=== PATIENT | female | born 1935 | race Caucasian/White ===

== ENCOUNTER → 2017-06-05 | Outpatient (CLI) | payer MEDICARE, MEDICAID ==
[~2017-06-05] MED LIST: AC325T; AMLO5TAB2; AMT10T; ASP81TEC; CALC500T30; CLC500CT; CLN.2T; CLNZ.5T; ERGO400C; HCT25T; KCL10CCR; METO100T5; METO50TA7; MULT-608; MULT1TAB63; NF-LOVAZAC; NF-METANX; PNT40TEC; RLX60T; ROPI1TAB; RPN.25T; SIMV20TA3; TELM40T; VALS1TAB15; [UNRECOGNIZED DRUG - CODE]
--- NOTE | 2017-06-05 13:52 | Diagnostic Imaging Report ---
Digital mammogram bilateral screening. This study was compared with the prior exam of 05/21/2016; 05/14/2015; and 05/01/2014. At this time there are no current complaints. The current study was also evaluated with a Computer Aided Detection (CAD) system. FINDINGS: The fibroglandular tissue in both breasts is heterogeneously dense. This does limit the sensitivity of this exam. Overall, there does not appear to have been any significant change when compared to the prior study. No primary or secondary sign of malignancy is noted. IMPRESSION: There is no radiographic evidence for malignancy. ACR BI-RADS Category 1: Negative. Result letter will be mailed to the patient. Note: At least 10% of breast cancer is not imaged by mammography. Dictated by: Dictated on workstation # [id number]
== END ==
LOC: RAD 09:08
PROVIDERS: ATTEND Internal Medicine
DX: Z12.31 Encounter for screening mammogram for malignant neoplasm of breast (principal)
CPT/HCPCS: 77067

== ENCOUNTER → 2019-06-28 | Outpatient (CLI) | payer MEDICARE, MEDICAID | END | disposition home or self-care (01) | LOC: PREOP 05:31 | PROVIDERS: ATTEND Surgery | DX: Z01.818 Encounter for other preprocedural examination (principal) ==

== ENCOUNTER 2019-07-05 09:09 | Day surgery (SDC) | payer MEDICARE, MEDICAID ==
[~2019-07-05] VITALS: Ht 162 cm; Wt 77.0 kg
[2019-07-05] VITALS (8 sets, daily range): BP systolic 160–188; BP diastolic 63–99
[2019-07-05] MEDS ORDERED: LACTATED RINGERS 1,000 ML IV ONE (09:23)
[2019-07-05] MEDS ORDERED: LACTATED RINGERS 1,000 ML IV STA (09:23)
--- NOTE | 2019-07-05 09:45 | Progress Note-Pre Operative ---
Pre-Operative Progress Note H&P Reviewed The H&P was reviewed, patient examined and no changes noted. Date Seen by Provider: Jul 05, 2019 Time Seen by Provider: 09:42 Date H&P Reviewed: Jul 05, 2019 Time H&P Reviewed: 09:45 Pre-Operative Diagnosis: change in bowel habits, blood in stool MERCEDES BISWAS DO Jul 05, 2019 09:45
[2019-07-05] MEDS ORDERED: PROPOFOL INJECTION 0 ML IV ONE (10:09)
[2019-07-05] MEDS ORDERED: PROPOFOL INJECTION 50 ML IV ONE (10:48)
--- NOTE | 2019-07-05 10:49 | Anesthesia-General Post-Op ---
MAC Patient Condition Mental Status/LOC: Same as Preop Cardiovascular: Satisfactory Nausea/Vomiting: Absent Respiratory: Satisfactory Pain: Controlled Complications: Absent Post Op Complications Complications None Follow Up Care/Instructions Patient Instructions None needed. Anesthesiology Discharge Order Discharge Order Patient is doing well, no complaints, stable vital signs, no apparent adverse anesthesia problems. No complications reported per nursing. MARTINA MARCUS CRNA Jul 05, 2019 10:49
--- NOTE | 2019-07-05 11:01 | Progress Note-Post Operative ---
Post-Operative Progess Note Surgeon (s)/Shot Lighter (s) Surgeon MERCEDES BISWAS DO Shot Lighter: na Pre-Operative Diagnosis change in bowel habits, blood in stool Post-Operative Diagnosis Diverticulosis, Anorectal mucosal change Procedure & Operative Findings Date of Procedure 07/05/19 Procedure Performed/Findings colonoscopy with cold anorectal biopsy, Anesthesia Type Per BRIGADIER Estimated Blood Loss Estimated blood loss (mL): Minimal Specimens/Packing Specimens Removed Anorectal mucosa MERCEDES BISWAS DO Jul 05, 2019 11:01
--- NOTE | 2019-07-05 11:02 | Discharge Inst-Simple/Standard ---
Discharge Inst-Standard Reconcile Patient Problems Problems Reviewed?: No Patient Instructions/Follow Up Plan of Care/Instructions/FU: 2 weeks tony Activity as Tolerated: Yes Discharge Diet: Regular Diet MERCEDES BISWAS DO Jul 05, 2019 11:02
--- NOTE | 2019-07-05 11:35 | NUR ---
PT VERBALIZED IT IS HARD TO BREATHE, O2 SAT 98%, FELICE [employer] NOTIFIED- ORDERED A BREATHING TX, RT AT BEDSIDE FOR TREATMENT. POST TREATMENT PT VERBALIZED FEELING EASIER TO BREATHE.
[2019-07-05] MEDS ORDERED: RT-ALBUTEROL SULF 2.5 MG/3 ML PRE-MIX VIAL ONE (11:38)
[2019-07-05] MEDS ORDERED: RT-ALBUTEROL SULF 2.5 MG/3 ML PRE-MIX VIAL INH ONE (11:45)
--- NOTE | 2019-07-05 16:42 | OPERATIVE REPORT ---
DATE OF SERVICE: 07/05/2019 PREOPERATIVE DIAGNOSIS: Change in bowel habits, blood in stool. POSTOPERATIVE DIAGNOSES: Diverticulosis, anorectal mucosal change. PROCEDURE: Colonoscopy with cold anorectal biopsy. SURGEON: Mercedes Galdamez DO ANESTHESIA: Per [employer]ER. ESTIMATED BLOOD LOSS: Minimal. COMPLICATIONS: None. INDICATIONS: The patient is an 83-year-old female with change in bowel habits and blood in stool. She understands risks and benefits of the procedure and wished to proceed with the procedure. Consent was signed in the chart. DESCRIPTION OF PROCEDURE: The patient was taken to the endoscopy suite, placed in left lateral recumbent position. Timeout was performed. Digital rectal exam was performed on the right lateral aspect. Mucosal erythematous changes present. No palpable polyps, masses or ulcerations. Scope was inserted in the rectum and advanced all the way to the cecum with minimal difficulty. Prep was adequate. Scope was slowly retracted back. No polyps, masses or ulcerations of the cecum, ascending, transverse, or descending colon. Diverticulosis present throughout colon minimally. Once in the rectum, scope was retroflexed noting erythematous mucosal change, as well biopsy of this anorectal mucosal change was obtained. Scope was then returned to its normal position, slowly withdrawn until completely removed. A cold biopsy of the mucosal change on the outside was performed as well. The patient tolerated procedure well without any complications. She was taken to recovery room in stable condition. RECOMMENDATION: The patient will follow up in two weeks to discuss pathology results. Job ID: [id number] DocumentID: [id number] Dictated Date: 07/05/2019 11:01:28 Half Section Ironer Date: 07/05/2019 16:42:02 Dictated By: MERCEDES GALDAMEZ DO
== END 2019-07-05 12:20 | disposition home or self-care (01) ==
LOC: ENDO 09:09
PROVIDERS: ATTEND Surgery
DX: K62.1 Rectal polyp (principal); K92.1 Melena; K57.30 Diverticulosis of large intestine without perforation or abscess without bleeding; I10 Essential (primary) hypertension; I25.10 Atherosclerotic heart disease of native coronary artery without angina pectoris; J45.909 Unspecified asthma, uncomplicated; I48.91 Unspecified atrial fibrillation; Z88.8 Allergy status to other drugs, medicaments and biological substances; Z79.02 Long term (current) use of antithrombotics/antiplatelets; Z79.899 Other long term (current) drug therapy; Z88.1 Allergy status to other antibiotic agents; Z87.891 Personal history of nicotine dependence; Z82.49 Family history of ischemic heart disease and other diseases of the circulatory system; Z86.73 Personal history of transient ischemic attack (TIA), and cerebral infarction without residual deficits; Z95.5 Presence of coronary angioplasty implant and graft
CPT/HCPCS: 94640

== ENCOUNTER 2019-12-22 19:44 | Emergency (ER) | payer MEDICARE, MEDICAID ==
[~2019-12-22] VITALS: Ht 162 cm; Wt 82.0 kg
--- NOTE | 2019-12-22 19:54 | ED Fall/Injury ---
General Chief Complaint: Trauma-Non Activation Stated Complaint: FALL/LAC Source: patient Exam Limitations: no limitations History of Present Illness Date Seen by Provider: Dec 22, 2019 Time Seen by Provider: 19:52 Initial Comments To ER from assisted living with reports of a full and laceration to the scalp. No complaints of pain Occurred: just prior to arrival Severity: mild Context: slipped Loss of Consciousness: no loss of consciousness Associated Symptoms (Fall): No Confusion Allergies and Home Medications Allergies Coded Allergies: Alendronic Acid (Verified Allergy, Unknown, 12/01/06) Patient Home Medication List Home Medication List Reviewed: Yes Review of Systems Review of Systems Constitutional: see HPI Eyes: No Symptoms Reported Ears, Nose, Mouth, Throat: no symptoms reported Respiratory: no symptoms reported Cardiovascular: no symptoms reported Musculoskeletal: no symptoms reported Skin: no symptoms reported Psychiatric/Neurological: No Symptoms Reported Past Szfydiw-Zjdrul-Ahouig Hx Patient Social History Recent Hopitalizations: Yes Past Medical History Surgeries: Yes (HYSTERECTOMY, ANKLE FX TIMES 2, HEMMORIODECTOMY, ) Respiratory: No Cardiac: Yes Neurological: No Reproductive Disorders: Yes Gastrointestinal: Yes Musculoskeletal: Yes Endocrine: Yes Psychosocial: Yes (HALLUCATION, ) Blood Disorders: No Physical Exam Vital Signs Vital Signs - First Documented 12/22/19 19:45 Temp 36.9 Pulse 112 Resp 20 B/P (MAP) 134/99 (111) Pulse Ox 92 O2 Delivery Nasal Cannula O2 Flow Rate 3.00 Capillary Refill : Height, Weight, BMI Height: '" Weight: lbs. oz. kg; 29.34 BMI Method: General Appearance: WD/WN, no apparent distress HEENT: PERRL/EOMI, normal ENT inspection, other (3 cm scalp down to the subcutaneous tissue right parietal scalp.) Neck: No tender lateral, No tender midline; other (full range of motion of the neck) Respiratory: no respiratory distress, no accessory muscle use Gastrointestinal: normal bowel sounds, non tender, soft Extremities: normal range of motion, non-tender Neurologic/Psychiatric: alert, normal mood/affect, oriented x 3 Skin: normal color, warm/dry Paxton Coma Score Best Eye Response: (4) Open Spontaneously Best Verbal Response: (5) Oriented Best Motor Response: (6) Obeys Commands [place] Total: 15 Procedures/Interventions Wound Location: Scalp Wound Length (cm): 3 Wound's Depth, Shape: linear Anesthesia: Lidocaine w/ Epi Volume Anesthetic (ccs): 3 Progress 4 ras right parietal scalp Progress/Results/Core Measures Results/Orders My Orders Orders - ADDIS MARTE APRN Ct Head/Cervical Spine Wo (12/22/19 19:48) Dipht,Pertuss(Acell),Tet Adult (Boostrix (12/22/19 20:00) Lidocaine/Epi 2% 1:100,000 (Xylocaine/Ep (12/22/19 20:00) Medications Given in ED Current Medications Medications Dose Ordered Sig/Kathryn Route Start Time Stop Time Status Last Admin Dose Admin Diphtheria/ Tetanus/Acell Pertussis 0.5 ml ONCE ONCE IM 12/22/19 20:00 12/22/19 20:01 DC 12/22/19 20:14 0.5 ML Lidocaine/ Epinephrine 20 ml ONCE ONCE INJ 12/22/19 20:00 12/22/19 20:01 DC 12/22/19 20:13 20 ML Vital Signs/I&O 12/22/19 19:45 Temp 36.9 Pulse 112 Resp 20 B/P (MAP) 134/99 (111) Pulse Ox 92 O2 Delivery Nasal Cannula O2 Flow Rate 3.00 Departure Impression Primary Impression: Fall at snf Qualified Codes: W19.XXXA - Unspecified fall, initial encounter; Y92.129 - Unspecified place in snf as the place of occurrence of the external cause Additional Impression: Scalp laceration Qualified Codes: S01.01XA - Laceration without foreign body of scalp, initial encounter Disposition: HOME, SELF-CARE Condition: Stable Departure-Patient Inst. Decision time for Depature: 19:54 Referrals: KIMO HAYNES MD (PCP/Family) Primary Care Physician Patient Instructions: Laceration Repair With Ras (DC) Add. Discharge Instructions: 1. Have the ras removed in about 5-7 days. Return to ER for any altered mental status or other concerns. All discharge instructions reviewed with patient and/or family. Voiced understanding. ADDIS MARTE APRN Dec 22, 2019 19:54
--- NOTE | 2019-12-22 19:57 | NUR ---
SEE LIST FOR CURRENT MEDS
[2019-12-22] MEDS ORDERED: LIDOCAINE/EPI 2% 1:100,00 (XYLOCAINE) 20 ML VIAL INJ ONE (20:00)
[2019-12-22] MEDS ORDERED: TETANUS,DIPTH,PERTUSS P/F (BOOSTRIX) 0.5 ML VIAL IM ONE (20:00)
--- OUTSIDE RECORDS SUMMARY | 2019-12-22 20:31 | XMS REPORT ---
Author Author [email or web address] Organization [employer] Address [address] [address] Care Team Providers Care Gas Technician Name Role Phone KIMO HAYNES Unavailable Unavailable CARRI RITTER Unavailable NINA MEDINA Unavailable Unavailable KIMO HAYNES Unavailable KIMO HAYNES Unavailable KIMO HAYNES Unavailable KIMO HAYNES Unavailable KIMO HAYNES Unavailable SHAQ HERNÁNDEZ Unavailable KIMO HAYNES Unavailable KIMO HAYNES Unavailable JENIFFER, JACQUELINE Unavailable JENIFFER, JACQUELINE Unavailable JENIFFER, JACQUELINE Unavailable KIMO HAYNES Unavailable JENIFFER, JACQUELINE Unavailable JENIFFER, JACQUELINE Unavailable JENIFFER, JACQUELINE Unavailable JENIFFER, JACQUELINE Unavailable JENIFFER, JACQUELINE Unavailable JENIFFER, JACQUELINE Unavailable RICARDO RODRIGUEZ, LYNSEY Rincon Unavailable Unavailable Migration, Doctor Unavailable Unavailable Migration, Doctor Unavailable Unavailable Migration, Doctor Unavailable Unavailable Migration, Doctor Unavailable Unavailable Migration, Doctor Unavailable Unavailable Migration, Doctor Unavailable Unavailable KIMO HAYNES Unavailable KIMO HAYNES Unavailable KIMO HAYNES Unavailable KIMO HAYNES Unavailable TORRES, LAKSHMI Unavailable TORRES, LAKSHMI Unavailable TORRES, LAKSHMI Unavailable TORRES, LAKSHMI Unavailable KIMO HAYNES Unavailable TORRES, LAKSHMI Unavailable KIMO HAYNES Unavailable TORRES, LAKSHMI Unavailable TORRES, LAKSHMI Unavailable KIMO HAYNES Unavailable TORRES, LAKSHMI Unavailable HUKIMO YOUSIF Unavailable MERCEDES BISWAS DO Unavailable Unavailable KIMO HAYNES PCP TORRES, LAKSHMI Unavailable KIMO HAYNES MD Unavailable Unavailable TORRES, LAKSHMI Unavailable TORRES, LAKSHMI Unavailable KIMO HAYNES Unavailable TORRES, LAKSHMI Unavailable TORRES, LAKSHMI Unavailable TORRES, LAKSHMI Unavailable TORRES, LAKSHMI Unavailable TORRES, LAKSHMI Unavailable TORRES, LAKSHMI Unavailable TORRES, LAKSHMI Unavailable TORRES, LAKSHMI Unavailable TORRES, LAKSHMI Unavailable TORRES, LAKSHMI Unavailable TORRES, LAKSHMI Unavailable TORRES, LAKSHMI Unavailable TORRES, LAKSHMI Unavailable TORRES, LAKSHMI Unavailable TORRES, LAKSHMI Unavailable Allergies The data below is from unstructured sources Allergen Type Severity Reaction Last Updated Verified Status Alendronic Acid Allergy Unknown December 01, 2006 Yes Active No Information Medications Current Medications Medication Ingredient Drug Dose Dates Status Sig Sig Care Class(es) (Normalized) (Original) Provid er albuterol Albuterol beta2-Adren 2.4899 Active take 3 mL by Albut radha no 0.83 mg/ml Translation ergic 045325 inhalation Sulfate (2.5 name inhalant s: [ Agonist [id number] every four MG/3ML) (no solution (1 Albuterol mg/mL hours as 0.083% phone) source.) Sulfate needed Inhalation (2.5 every 4 hrs MG/3ML) 3 ml as 0.083%] needed 4h Active no Ascorbic Vitamin C Active no Ocuvite no information Acid / Beta information Adult 50+ - name (1 source.) Carotene / Orally one (no cuprous time daily 1 phone) oxide / capsule Lutein / Active sodium selenate / Vitamin E / Zinc Oxide Translation s: [ Ocuvite Adult 50+ -] betamethaso betamethaso Azole 10-17-19 Active no Lotrisone no ne 0.5 ne / Antifungal, 17 information 1-0.05 % na me mg/ml / clotrimazol Corticoster Externally (no clotrimazol e oid Twice a day phone) e 10 mg/ml Translation to reddened topical s: [ areas 1 cream (2 Lotrisone application sources.) 1-0.05 %, to affected Lotrisone area Sep, 1-0.05 %] 2016 30 days Active 10-17-2016 Active no Lotrison no name inform e 1-0.05 (no ation % phone) External ly Twice a day to reddened areas 1 applicat ion to affected area Sep, 30 days Active 12 hr dextrometho Uncompetiti 01-09-20 Active no Mucinex DM no dextrometho rphan / ve 17 information 30-600 MG na me rphan guaiFENesin N-methyl-D- Orally every (no hydrobromid Translation aspartate 12 hrs 1 phone) e 30 mg / s: [ Receptor tablet as guaiFENesin Mucinex DM Antagonist, needed 12h 600 mg 30-600 MG, Sigma-1 Dec, extended 12 HR Agonist Active release Dextrometho oral tablet rphan (2 Hydrobromid sources.) e 30 MG / Guaifenesin 600 MG Extended Release Oral Tablet [Mucinex DM], Mucinex DM 30-600 MG] 01-08-2017 Active no Mucinex no name inform DM (no ation 30-600 phone) MG Orally every 12 hrs 1 tablet as needed 12h Dec, Active loratadine Loratadine no 10 mg Active no Claritin 10 no 10 mg oral Translation information information MG Orally nam e tablet (1 s: [ Once a day 1 (no source.) Claritin 10 tablet 24h phone) MG] 30 day(s) Active Completed/Discontinued Medications Medication Ingredient Drug Dose Dates Status Sig Sig Care Class(es) (Normalized) (Original) Provid er no Amitriptyli Tricyclic 02-14-20 Complete no Amitriptyl in no information ne Antidepress 09 d information e Hcl name (1 source.) ant Discontinued (no NOT phone) APPLICABLE February 13, 2009 no amLODIPine Dihydropyri no no Amlodipine no information dine informat information Besylate name (1 source.) Calcium ion Active NOT (no Channel APPLICABLE phone) Lisette no Aspirin Platelet no no Aspirin no information Aggregation informat information Active NOT nam e (1 source.) Inhibitor, ion APPLICABLE (no Nonsteroida phone) l Anti-inflam matory Drug no Calcium no no no Calcium no information Carbonate information informat information Carbona te name (2 ion Active NOT (no sources.) APPLICABLE phone) no Cholecalcif Vitamin D no no Cholecalcife no information radha informat information rol Active name (1 source.) ion NOT (no APPLICABLE phone) no clonazePAM Benzodiazep 02-14-20 Complete no Clonazepa m no information ine 09 d information Discontinued name (1 source.) NOT (no APPLICABLE phone) February 13, 2009 no cloNIDine Central 02-14-20 Complete no Clonidine no information alpha-2 09 d information Hcl na me (1 source.) Adrenergic Discontinued (no Agonist NOT phone) APPLICABLE February 13, 2009 no Hctz/Valsar no no no Hctz/Valsart no information sharp information informat information an Activ e name (1 source.) ion NOT (no APPLICABLE phone) no hydroCHLORO Thiazide 02-14-20 Complete no Hydrochloro t no information thiazide Diuretic 09 d information hiazide name (1 source.) Discontinued (no NOT phone) APPLICABLE February 13, 2009 no Mag no no no Mag no information Hydrox/Al information informat information Hydrox/ Al name (1 source.) Hydrox/Gil ion Hydrox/Simet (no th h Active NOT phone) APPLICABLE no Me-Cobalam/ no no no Me-Cobalam/L no information Lm-Folate/P information informat information m-Fol ate/Pyr name (1 source.) yridoxal ion idoxal (no Active NOT phone) APPLICABLE no Multivitami no no no Multivitamin no information ns information informat information s Active NOT name (2 ion APPLICABLE (no sources.) phone) 02-13-2009 Completed no Multivit no name inform amins (no ation Disconti phone) nued NOT APPLICAB LE February 13, 2009 no Xenia-3-Aci no no no Rrtdn-1-Zzhn no information d Ethyl information informat information Ethyl Es ters name (1 source.) Esters ion Active NOT (no APPLICABLE phone) no pantoprazol Proton Pump no no Pantoprazol e no information e Inhibitor informat information Sodium name (1 source.) ion Active NOT (no APPLICABLE phone) no Raloxifene Estrogen 02-14-20 Complete no Raloxifene no information Agonist/Ant 09 d information Hcl name (1 source.) agonist Discontinued (no NOT phone) APPLICABLE February 13, 2009 no telmisartan Angiotensin 02-14-20 Complete no Telmisar sharp no information 2 Receptor 09 d information Discontin ued name (1 source.) Lisette NOT (no APPLICABLE phone) February 13, 2009 Problems Active Problems Problem Normalized Date of Normalized Normalized Provider Fac ility Classification Problem(s) Problem Problem Problem Sta tus Onset/Resoluti Duration on Allergic Allergy status Episodic Active MERCEDES BISWAS , [facility] Via reactions (4 to other DO [facility] sources.) antibiotic Hospital - agents status [place] Translations: (63917) [ ALLERGY STATUS TO OTH DRUG/MEDS/BIOL SUB] Other Alteration in Episodic Active KIMO HAYNES Asce nsion Via gastrointestin bowel [address] [facility] al disorders elimination [facility] (1 source.) (22224) Coronary Atheroscleroti Chronic Active MERCEDES BISWAS , [facility] Via atherosclerosi c heart DO [facility] s and other disease of Hospital - heart disease te-moak [place] (2 sources.) coronary (80792) artery without angina pectoris Diverticulosis Diverticulosis Chronic Active MERCEDES BISWAS , [facility] Via and of large DO [facility] diverticulitis intestine Hospital - (2 sources.) without [place] perforation or (40289) abscess without bleeding Residual Family history Episodic Active MERCEDES BISWAS , [facility] Via codes; of ischemic DO [facility] unclassified heart disease Hospital - (2 sources.) and other [place] diseases of (16800) the circulatory system 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 Episodic Active MERCEDES BISWAS , [facility] Via aftercare (2 (current) use DO [facility] sources.) of Hospital - antithrombotic [place] s/antiplatelet (38218) s Gastrointestin Melena Episodic Active MERCEDES BISWAS , [facility] Via al hemorrhage DO [facility] (2 sources.) Hospital [facility] ([address]) Other Other long Episodic Active MERCEDES BISWAS , [facility] Vi a aftercare (2 term (current) DO [facility] sources.) drug therapy [facility] () Screening and Personal Episodic Active MERCEDES BISWAS , [facility] Via history of history of DO [facility] mental [facility] nicotine Hospital - and substance dependence [place] abuse codes (2 (10614) sources.) Other Personal Episodic Active MERCEDES BISWAS , [facility] Via circulatory history of [facility] disease (2 transient Hospital - sources.) ischemic [place] attack (TIA), (76560) and cerebral infarction without residual deficits Coronary Presence of Episodic Active MERCEDES BISWAS , [facility] V ia atherosclerosi coronary DO [facility] s and other angioplasty Hospital - heart disease implant and [place] (2 sources.) graft (99090) Anal and Rectal polyp Episodic Active MERCEDES BISWAS , [facility] Via rectal DO [facility] conditions (2 Hospital - sources.) [place] (36245) Respiratory Respiratory no information Active LAKSHMI TORRES Co mmunity failure; failure; [address] [place] [address] Center insufficiency; insufficiency; of [facility] arrest (adult) arrest (adult) [place] () (10 sources.) Translations: [ - Chronic atrial fibrillation I48.20] Asthma (2 Unspecified Chronic Active MERCEDES BISWAS , [facility] V ia sources.) asthma, DO [facility] uncomplicated Hospital [facility] (36416) Cardiac Unspecified Chronic Active MERCEDES BISWAS , [facility] V ia dysrhythmias atrial DO [facility] (11 sources.) fibrillation Hospital - Translations: [place] [ Atrial (14489) fibrillation, unspecified type] Malaise and Weakness Episodic Active LAKSHMI TORRES Community fatigue (10 Translations: [address] sources.) [ - Weakness of [facility] R53.1] [place] ([address]) Past or Other Problems Problem Normalized Date of Normalized Normalized Provider Fac ility Classification Problem(s) Problem Problem Problem Sta tus Onset/Resoluti Duration on Abdominal pain Abdominal Episodic Completed LYNSEY ODGERS Not Available (3 sources.) pain, , MD (80462) unspecified site Unclassified no information no information no information RODNE Y ODGERS Not Available (3 sources.) MD (55977) Unclassified no information no information no information RODNE Y ODGERS Not Available (3 sources.) MD (63808) Unclassified no information no information no information RODNE Y ODGERS Not Available (3 sources.) , (76490) Unclassified no information no information no information RODNE Y ODGERS Not Available (3 sources.) , (16464) Procedures Procedure Normalized Procedure Procedure Result Performer Facility Date 03-23-2014 Collection venous no information no name (no phone) [facility] blood venipuncture [facility] (94368) 03-23-2014 Comprehensive no information no name (no phone) [facility] metabolic panel [facility] (54133) Immunizations Normalized Immunization Date Notes Care Provider Facili ty Immunization pneumococcal 10-17-2016 no information no name [facility] conjugate vaccine, [facility] (84685) pneumococcal 07-23-2011 no information no name [facility] polysaccharide [facility] vaccine, [address] [facility] (69729) Results The data below is from unstructured sourcesNo Known Results No Results No ResultsNo Known Results No Known Results No Known Results No Known Results No Known Results No Known Results No Known Results No Known Results No Known Results No Known Results No Known Results No Known Results No Known Results No Known Results No Known Results No Known Results No Known Results No Known Results No Known Results No Known Results No Known Results No Known Results No Results No Results No Results No Results No Results No Results No Results No Results No Results No Results No Results No Results No Results No Results No Results No Results No Results No Results No Results No Results No Results No Results No Results No Results No Results No Results No Results No Results No Results No Results No Results No Results No Results No Results No Results No Results No Results No Results No Results No Results No Results No Results No Results No Results No Results No Results No Results No Results No Results No Results No Results No Results No Results No Results No Results No Results No Results No Results No Results No Results No Results No Results No Results No Results No Results No Results No Results No Results No Results No Results No Results No Results No Results No Results No Results No Results No Results No Results No Results No ResultsNo known relevant diagnostic tests and/or laboratory data.No known relevant diagnostic tests and/or laboratory data. No Results No Results No Results No Results No Results No Results No Results No Results No Results No Results Vital Signs Vital Sign Value Interpretation Reference Date Time Care Prov ider Facility (Normalized) (Normalized) Range Body 98.8 [degF] (no code) 97.8 - 99.0 03-23-2014 KIMO WHITE [facility] Temperature [degF] 15: [id number] [place] [address] (21765) Body weight 81.19 kg (no code) kg 03-23-2014 KIMO HAYNES [facility] 15: [address] [facility] (27323) Height 165.1 cm (no code) cm 03-23-2014 KIMO HAYNES ommunity 15: [id number] [place] [address] (23418) Interventions No Information Plan of Treatment Normalized Care Care Detail Care Activity Date Care Provider F acility Activity Patient Education COLONOSCOPY no information KIMO HAYNES [phone] [facility] ([address]) Goals Patient Goal Desired Goal no information no information Social History Normalized Code Original Code Date Value Tobacco smoking status Tobacco smoking status no information Never smoked tobacco NYIS NYIS (finding) no information no information 07-05-2019 Denies Use no information no information 07-05-2019 No no information no information 07-05-2019 Never a Smoker no information no information 07-05-2019 Yes Sex Assigned At Sex Assigned At no information F emale Functional Status The data below is from unstructured sourcesNo Functional Status information available Mental Status The data below is from unstructured sourcesNo Mental Status Information Available Encounters Encounter Normalized Encounter Encounter Diagnosis Care Provi nicholas Organization Date Type 07-05-2019 Admission to day no information (no phone) [facility] (no phone) 07-05-2019 08-24-2018 Dom/r-home e/m est pt no information no name (no ph one) no organization name self-lmtd/minor 15 (no phone) minutes NEGATED Patient encounter no information no name (no phone) no organization name 06-05-2017 (no phone) 07-05-2019 Patient encounter no information no name (no phone) no organization name procedure (no phone) 07-05-2019 Patient encounter no information no name (no phone) no organization name - procedure (no phone) 07-05-2019 06-28-2019 Patient encounter no information (no phone) Viktoriya brandon [facility] (no phone) 06-28-2019 Patient encounter no information no name (no phone) no organization name procedure (no phone) 06-05-2017 Patient encounter no information no name (no phone) no organization name procedure (no phone) 05-22-2017 Patient encounter no information no name (no phone) no organization name procedure (no phone) 05-21-2016 Patient encounter no information no name (no phone) no organization name procedure (no phone) 05-14-2015 Patient encounter no information no name (no phone) no organization name procedure (no phone) 05-01-2014 Patient encounter no information no name (no phone) no organization name procedure (no phone) 02-13-2009 Patient encounter no information no name (no phone) no organization name procedure (no phone) Patient encounter no information no name (no phone) no organ ization name procedure (no phone) 12-29-2017 [facility] no information no name (no phone ) no organization name care/day minor complj (no phone) 15 min 07-21-2017 [facility] no information no name (no phone ) no organization name - care/day minor complj (no phone) 07-21-2017 15 min - 07-21-2017 04-27-2018 [facility] no information no name (no ph one) no organization name care/day e/m stable 10 (no phone) min 08-25-2017 [facility] no information no name (no ph one) no organization name care/day e/m stable 10 (no phone) min 12-02-2019 Telephone encounter no information JACQUELINE SWIFT ( no [facility] - phone) (no phone) 12-02-2019 - 12-02-2019 09-07-2019 Telephone encounter Essential (primary) [facility] - hypertension phone) (no phone) 09-07-2019 - 09-07-2019 08-09-2019 Telephone encounter no information KIMO HAYNES (n o [facility] - phone) (no phone) 08-09-2019 - 08-09-2019 08-08-2019 Telephone encounter no information KIMO HAYNES (n o [facility] - phone) (no phone) 08-08-2019 - 08-08-2019 11-15-2019 [facility] Essential (primary) JACQUELINE STARKVal WISE (no Via [facility] hypertension phone) [facility] (no 11-15-2019 phone) - 11-15-2019 no information Encounter for other no name (no phone) no org anization name preprocedural (no phone) examination Medical Equipment The data below is from unstructured sourcesNo Medical Equipment Information available Payers Normalized Payer Value Unknown no information ([id number]) Medicare no information ([id number]) History general Narrative - Reported Note Type Note Facility History general Narrative - Reported Type Surgical Left hip replacement 2005 History Surgical right leg fx History Surgical right ankle fx History Surgical right knee arthroscopy History [facility] (46733) History general Narrative - Reported Note Type Note Facility History general Narrative - Reported Type 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 Kidney failure History Medical Retention of urine, unspeci fied History Medical Arteriosclerotic cardiovasc ular disease (ASCVD) History Medical Hyperosmolality and hyperna tremia History Medical Age-related osteoporosis wi thout current pathological fracture History Medical Benign essential hypertensi on History Medical STEMI (ST elevation myocard ial infarction) History Medical Constipation History Medical Allergic rhinitis History Medical Oth disorders of electrolyt e and fluid balance, NEC History Medical Functional dyspepsia History Medical Hyperlipemia History Medical Herpes zoster without compl ication History Medical Peripheral vascular disease History Medical Unspecified hemorrhoids History Medical Hearing loss History Medical Nontraumatic intracranial h emorrhage, unspecified History Medical Incontinence in female History Medical Generalized pain History Medical Conductive hearing loss History Medical Edema History Medical History of fall History Medical Difficulty walking History Medical Muscular atrophy, unspecifi ed site History Medical Chronic UTI History Surgical Left hip replacement 2005 History Surgical right leg fx History Surgical right ankle fx History Surgical right knee arthroscopy History [facility] (61588) Summary Purpose eClinicalWorks SubmissioneClinicalWorks SubmissioneClinicalWorks SubmissioneClinicalWorks SubmissioneClinicalWorks SubmissioneClinicalWorks SubmissioneClinicalWorks SubmissioneClinicalWorks SubmissioneClinicalWorks SubmissioneClinicalWorks SubmissioneClinicalWorks SubmissioneClinicalWorks Submission Advance Directives Advance Directive Response Recorded Date/Time Advance Directives No Oc tober 2018 9:45am Health Care Power of New Car Sales Manager No July 05, 2019 9:45am Organ Donor Yes July 05, 2019 9:45am Resuscitation Status Full Code July 05, 2019 9:45am Assessments No Assessments Information Available Discharge Instructions Additional Instructions Patient Instructions Physician Instructions Plan of Care/Instructions/FU: 2 weeks biswas Activity as Tolerated: Yes Discharge Diet: Regular Diet Care Plan Patient Instructions:: 2 weeks biswas Additional Source Comments This clinical document has been generated using [employer] software that has been certified by the Office of the National Coordinator for Health Information Technology (ONC 15.99.04.3023.Diam.31.00.0.020180) and the National Committee for Rim Roller Setter (NCQA, as an eMeasure certified technology). FOR RECORDS PERTAINING TO PATIENTS WHO ARE OR HAVE BEEN ENROLLED IN A CHEMICAL D EPENDENCY/SUBSTANCE ABUSE PROGRAM, SOME INFORMATION MAY BE OMITTED. This clinica l summary was aggregated from multiple sources. Caution should be exercised in using it in the provision of clinical care. This summary normalizes information from multiple sources, and as a consequence, information in this document may ma terially change the coding, format and clinical context of patient data. In scott tion, data may be omitted in some cases. CLINICAL DECISIONS SHOULD BE BASED ON T HE PRIMARY CLINICAL RECORDS. [email or web address] provides no warranty or guara ntee of the accuracy or completeness of information in this document.The followi ng information is based on time limited clinical information UNRECOGNIZED CONTENT PROVIDED BELOW FOR UNRECOGNIZED SECTION MEDICAL (GENERAL) HISTORY Type Description Date Surgical History Left hip replacement 2006 Type Description Date Surgical History Left hip replacement 2006 Surgical History right leg fx Surgical History right ankle fx Surgical History right knee arthroscopy UNRECOGNIZED CONTENT PROVIDED BELOW FOR UNRECOGNIZED SECTION REASON FOR VISIT Routine visitRoutine [id number]
--- OUTSIDE RECORDS SUMMARY | 2019-12-22 20:31 | XMS REPORT ---
Author Author Madelyn TORRESA [facility] Address [address] [place] [address] Care Team Providers Care Stoker Installer Name Role Phone TORRESBRENNENA Unavailable PROBLEMS Type Condition ICD9-CM Code DPE10-YN Code Onset Dates Condition S tatus SNOMED Code Problem Cough R05 Active 50419690 Problem Hypertension I10 Active 7754725 3 Problem PAD (peripheral artery disease) I73.9 Active 360113867 Problem Mixed hyperlipidemia E78.2 Active 138646720 Problem Atrial fibrillation, unspecified type I48.91 Active 61545769 Problem GERD (gastroesophageal reflux disease) K21.9 Active 393102714 Problem RLS (restless legs syndrome) G25.81 A ctive 27709779 Problem Venous insufficiency I87.2 Active 02587829 Problem Dorsalgia, unspecified M54.9 Active 530231982 Problem OAB (overactive bladder) N32.81 Activ e [id number] ALLERGIES No Information ENCOUNTERS Encounter Location Date Diagnosis [address] [address] Nov, Via [facility] [address] [place] [id number] Oct, Hypertension I10 ; Venous insufficiency I87.2 ; RLS (restless legs syndrome) G25.81 ; OAB (overactive bladder) N32.81 ; PAD (peripheral artery disease) I73.9 ; Chronic atrial fibrillation I48.20 and Weakness R53.1 [facility] [address] [address] Aug, Hypertension I10 [place] [address] [address] Jul, [place] [address] [address] Jul, [facility] [address] [id number] [place] [address] May, [address] [place] [address] Apr, [facility] [id number] [place] [address] Apr, RLS (restless legs syndrome) G25.81 and Urinary tract infection without hematuria, site unspecified N39.0 [place] [id number] [place] [address] Mar, Urinary tract infection without hematuri a, site unspecified N39.0 [facility] [address] [place] [id number] Mar, Dysuria R30.0 [address] [place] [address] Feb, [place] [address] [address] Feb, Venous insufficiency I87.2 [place] [address] [place] [id number] [place] [address] January, Left hip pain M25.552 [place] [id number] [place] [address] Dec, [place] [address] [address] Nov, Via [facility] [address] [place] [id number] Nov, Encounter for Medicare annual wellness e xam Z00.00 ; Hypertension I10 ; UTI (urinary tract infection) N39.0 ; Venous insufficiency I87.2 ; OAB (overactive bladder) N32.81 ; GERD (gastroesophageal reflux disease) K21.9 and Mixed hyperlipidemia E78.2 [place] [id number] [place] [address] Nov, Via [facility] [address] [place] [id number] Jul, Hypertension I10 ; Gastroesophageal refl ux disease without esophagitis K21.9 and PAD (peripheral artery disease) I73.9 [place] [address] [address] May, [facility] [address] [place] [id number] Mar, Hypertension I10 [place] [address] [address] Dec, [place] [address] [address] Dec, [facility] [address] [place] [id number] Dec, Bronchitis J40 Via [facility] [address] [place] [id number] Oct, Hypertension I10 [place] [address] [id number] [id number] Aug, [facility] [address] [place] [id number] Jul, Cough R05 [place] [address] [address] Jul, [place] [address] [address] Jul, [facility] [address] [place] [address] Jun, Hypertension I10 ; Gastroesophageal refl ux disease without esophagitis K21.9 ; Venous insufficiency I87.2 and OAB (overactive bladder) N32.81 [facility] [address] [place] [id number] Apr, Hypertension I10 and Venous insufficienc y I87.2 [place] [address] [id number] [place] [id number] Apr, Encounter for other screening for malign ant neoplasm of breast Z12.39 [place] [address] [place] [address] Mar, [facility] [id number] [place] [address] Feb, [facility] [id number] [place] [address] Feb, [facility] [id number] [place] [address] January, UTI (urinary tract infection) N39.0 [facility] [id number] [place] [address] January, UTI (urinary tract infection) N39.0 [facility] [address] [address] January, [facility] [id number] [place] [address] Dec, Bronchitis J40 [facility] [address] [place] [id number] Dec, Bronchitis J40 [facility] [address] [id number] [facility] [place] [id number] Nov, [facility] [address] [id number] [place] [address] Nov, [facility] [address] [place] [address] Nov, OAB (overactive bladder) N32.81 ; Dysuri a R30.0 ; Hypertension I10 and Mixed hyperlipidemia E78.2 [facility] [id number] [place] [address] Oct, [facility] [address] [address] Sep, [facility] [address] [address] Sep, [facility] [address] [place] [address] Aug, Hypertension I10 ; Mixed hyperlipidemia E78.2 and OAB (overactive bladder) N32.81 [facility] [address] [address] Aug, [facility] [address] [address] Aug, [facility] [address] [address] Aug, [facility] [address] [address] Jun, [facility] [address] [address] Jun, [facility] [address] [address] Jun, [facility] [address] [address] Jun, [facility] [address] [address] May, [facility] [address] [address] Apr, Encounter for other screening for malign ant neoplasm of breast Z12.39 [place] [address] [address] Apr, Encounter for other screening for malign ant neoplasm of breast Z12.39 [place] [address] [address] Mar, Hypertension I10 ; Acute cystitis withou t hematuria N30.00 ; Venous insufficiency I87.2 ; RLS (restless legs syndrome) G25.81 ; Dorsalgia, unspecified M54.9 and Other chronic pain G89.29 [facility] [address] [address] Feb, [facility] [address] [address] January, [facility] [address] [address] January, [facility] [id number] [place] [address] Oct, [facility] [id number] [place] [address] Aug, Dysuria R30.0 [facility] [id number] [place] [address] Aug, [facility] [id number] [place] [address] Aug, [facility] [id number] [place] [address] Jul, Hypertension I10 ; UTI (urinary tract in fection) N39.0 ; GERD (gastroesophageal reflux disease) K21.9 and PAD (peripheral artery disease) I73.9 [facility] [id number] [place] [address] Jun, [facility] [id number] [place] [address] Jun, [facility] [id number] [place] [address] Jun, [facility] [id number] [place] [address] May, [facility] [id number] [place] [address] Apr, [facility] [id number] [place] [address] Apr, [facility] [id number] [place] [address] Apr, Breast cancer screening V76.10 [facility] [id number] [place] [address] Apr, [facility] [id number] [place] [address] Mar, [facility] [address] [address] Mar, [facility] [address] [id number] [place] [address] Mar, [facility] [address] [id number] [place] [address] Feb, [facility] [address] [id number] [place] [address] Feb, [facility] [address] [id number] [place] [address] January, [facility] [address] [id number] [place] [address] January, [facility] [address] [id number] [place] [address] January, [facility] [address] [id number] [place] [address] January, [facility] [address] [id number] [place] [address] Dec, [facility] [address] [id number] [place] [address] Dec, [facility] [address] [id number] [place] [address] Nov, [facility] [address] [id number] [place] [address] Nov, [facility] [address] [id number] [place] [address] Nov, [facility] [address] [id number] [place] [address] Nov, [facility] [address] [id number] [place] [address] Oct, [facility] [address] [id number] [place] [address] Oct, [facility] [address] [id number] [place] [address] Oct, [facility] [address] [id number] [place] [address] Oct, [facility] [address] [id number] [place] [address] Oct, [facility] [address] [id number] [place] [address] Sep, [facility] [address] [id number] [place] [address] Sep, [facility] [address] [id number] [place] [address] Sep, [facility] [address] [id number] [place] [address] Sep, [facility] [address] [id number] [place] [address] Aug, [facility] [id number] [place] [address] Aug, [facility] [address] [id number] [place] [address] Aug, [facility] [address] [id number] [place] [address] Aug, [facility] [address] [id number] [place] [address] Jul, [facility] [address] [id number] [place] [address] Jul, [facility] [address] [id number] [place] [address] Jul, [facility] [address] [id number] [place] [address] Jul, [facility] [id number] [place] [address] Jul, [facility] [address] [id number] [place] [address] Jul, [facility] [address] [id number] [place] [address] May, [facility] [address] [facility] [id number] [facility] [address] May, [facility] [address] [facility] [id number] [place] [address] May, [facility] [address] [facility] [id number] [place] [address] May, [facility] [address] [facility] [id number] [facility] [address] Apr, [facility] [address] [facility] [id number] [facility] [address] Apr, [facility] [address] [facility] [id number] [place] [address] Apr, [facility] [address] [id number] [place] [address] Apr, [facility] [address] [id number] [place] [address] Mar, [facility] [address] [facility] [id number] [place] [address] Mar, [facility] [address] [id number] [place] [address] Mar, [facility] [address] [id number] [place] [address] Mar, [facility] [address] [id number] [place] [address] Feb, [facility] [address] [facility] [id number] [place] [address] Feb, [facility] [address] [facility] [id number] [place] [address] Feb, [facility] [address] [facility] [id number] [place] [address] Feb, [facility] [address] [id number] [place] [address] Feb, [facility] [address] [id number] [place] [address] Feb, [facility] [address] [id number] [place] [address] January, [facility] [address] [id number] [place] [address] January, [facility] [address] [id number] [place] [address] January, [facility] [address] [id number] [place] [address] January, [facility] [address] [id number] [place] [address] January, [facility] [address] [id number] [place] [address] January, [facility] [address] [id number] [place] [address] January, [facility] [address] [id number] [place] [address] January, [facility] [address] [id number] [place] [address] Dec, [facility] [address] [id number] [place] [address] Dec, [facility] [address] [id number] [place] [address] Dec, [facility] [address] [id number] [place] [address] Dec, [facility] [address] [id number] [place] [address] Dec, [facility] [address] [id number] [place] [address] Dec, [facility] [address] [id number] [place] [address] Dec, [facility] [address] [id number] [place] [address] Dec, [facility] [address] [id number] [place] [address] Dec, [facility] [address] [id number] [place] [address] Dec, [facility] [address] [id number] [place] [address] Nov, [facility] [address] [id number] [place] [address] Nov, [facility] [address] [id number] [place] [address] Nov, [facility] [address] [id number] [place] [address] Nov, [facility] [address] [id number] [place] [address] Oct, [facility] [address] [id number] [place] [address] Oct, [facility] [address] [id number] [place] [address] Oct, [facility] [address] [id number] [place] [address] Oct, [facility] [address] [id number] [place] [address] Oct, [facility] [address] [id number] [place] [address] Oct, [facility] [address] [id number] [place] [address] Sep, [facility] [address] [id number] [place] [address] Sep, [facility] [address] [id number] [place] [address] Sep, [facility] [address] [id number] [place] [address] Sep, [facility] [address] [id number] [place] [address] Sep, [facility] [address] [facility] [id number] [place] [address] Sep, [facility] [address] [id number] [place] [address] Sep, [facility] [address] [id number] [place] [address] Sep, [facility] [address] [id number] [place] [address] Aug, [facility] [address] [facility] [id number] [place] [address] Aug, [facility] [address] [id number] [place] [address] Aug, [facility] [address] [id number] [place] [address] Aug, [facility] [address] [id number] [place] [address] Aug, [facility] [address] [id number] [place] [address] Aug, [facility] [address] [id number] [place] [address] Aug, [facility] [address] [id number] [place] [address] Aug, [facility] [address] [id number] [place] [address] 15 Jul, 2013 [facility] [address] [id number] [place] [address] Jul, [facility] [address] [id number] [place] [address] Jul, [facility] [address] [id number] [place] [address] Jul, [facility] [address] [id number] [place] [address] Jul, [facility] [address] [id number] [place] [address] 08 Jul, 2012 [facility] [address] [id number] [place] [address] Jul, 2012 [facility] [address] [id number] [place] [address] Jul, 2012 [facility] [address] [id number] [place] [address] Jul, 2012 [facility] [address] [id number] [place] [address] Jul, 2012 [facility] [address] [id number] [place] [address] Jul, 2012 [facility] [address] [id number] [place] [address] Jul, 2012 [facility] [address] [id number] [place] [address] Jul, 2012 [facility] [address] [id number] [place] [address] Jul, 2012 [facility] [address] [id number] [place] [address] Jul, [facility] [address] [id number] [place] [address] Jul, [facility] [address] [id number] [place] [address] Jul, [facility] [address] [id number] [place] [address] Jul, [facility] [address] [id number] [place] [address] Jul, [facility] [id number] [place] [address] Jul, [facility] [address] [id number] [place] [address] Jun, [facility] [address] [id number] [place] [address] May, [facility] [address] [facility] [id number] [place] [address] May, [facility] [address] [id number] [place] [address] Apr, [facility] [address] [id number] [place] [address] Apr, [facility] [address] [id number] [place] [address] Apr, [facility] [address] [facility] [id number] [place] [address] Mar, [facility] [address] [id number] [place] [address] Mar, [facility] [address] [id number] [place] [address] Mar, [facility] [address] [id number] [place] [address] Mar, [facility] [address] [id number] [place] [address] Mar, [facility] [address] [id number] [place] [address] Mar, [facility] [address] [id number] [place] [address] Feb, [facility] [address] [id number] [place] [address] Feb, [facility] [address] [id number] [place] [address] Feb, [facility] [address] [id number] [place] [address] Feb, [facility] [address] [id number] [place] [address] January, [facility] [address] [id number] [place] [address] January, [facility] [address] [id number] [place] [address] Dec, [facility] [address] [id number] [place] [address] Nov, [facility] [address] [id number] [place] [address] 20 Oct, 2012 [facility] [address] [id number] [place] [address] 15 Oct, 2012 [facility] [address] [id number] [place] [address] 14 Oct, 2012 [facility] [address] [id number] [place] [address] Oct, [facility] [address] [id number] [place] [address] Oct, [facility] [id number] [place] [address] Oct, [facility] [address] [id number] [place] [address] Oct, [facility] [address] [id number] [place] [address] Sep, [facility] [address] [id number] [place] [address] Sep, [facility] [id number] [place] [address] Aug, [facility] [address] [id number] [place] [address] Aug, [facility] [address] [id number] [place] [address] Jul, [facility] [id number] [place] [address] Jul, [facility] [address] [id number] [place] [address] Jun, [facility] [id number] [place] [address] Jun, [facility] [address] [id number] [place] [address] Jun, 2011 [facility] [address] [id number] [place] [address] Jun, 2011 [facility] [address] [id number] [place] [address] Jun, 2011 [facility] [address] [id number] [place] [address] Jun, [facility] [address] [id number] [place] [address] Jun, [facility] [address] [id number] [place] [address] Jun, [facility] [address] [id number] [place] [address] Jun, [facility] [address] [id number] [place] [address] 30 May, 2011 [facility] [address] [id number] [place] [address] 25 May, 2011 [facility] [address] [id number] [place] [address] 20 May, 2011 [facility] [address] [id number] [place] [address] 18 May, 2011 [facility] [address] [id number] [place] [address] May, 2011 [facility] [address] [id number] [place] [address] 05 May, 2011 [facility] [address] [id number] [place] [address] Apr, [facility] [address] [id number] [place] [address] Mar, [facility] [address] [id number] [place] [address] Mar, [facility] [address] [id number] [place] [address] Mar, [facility] [address] [id number] [place] [address] Mar, [facility] [address] [id number] [place] [address] Mar, [facility] [address] [id number] [place] [address] Mar, [facility] [address] [id number] [place] [address] Mar, [facility] [address] [id number] [place] [address] Mar, [facility] [address] [id number] [place] [address] Feb, [facility] [address] [id number] [place] [address] Feb, [facility] [address] [id number] [place] [address] Feb, [facility] [address] [id number] [place] [address] January, [facility] [address] [id number] [place] [address] January, [facility] [address] [id number] [place] [address] January, [facility] [address] [id number] [place] [address] Dec, [facility] [address] [id number] [place] [address] Nov, [facility] [address] [id number] [place] [address] Nov, [facility] [address] [id number] [place] [address] Nov, [facility] [address] [id number] [place] [address] Nov, [facility] [address] [id number] [place] [address] Oct, [facility] [address] [id number] [place] [address] Oct, [facility] [address] [id number] [place] [address] Oct, [facility] [address] [id number] [place] [address] Oct, [facility] [address] [id number] [place] [address] Oct, [facility] [address] [id number] [place] [address] Oct, [facility] [address] [id number] [place] [address] Oct, [facility] [address] [id number] [place] [address] Sep, [facility] [address] [id number] [place] [address] Sep, [facility] [address] [id number] [place] [address] Sep, [facility] [address] [id number] [place] [address] Sep, [facility] [address] [id number] [place] [address] Sep, [facility] [address] [id number] [place] [address] Sep, [facility] [address] [id number] [place] [address] Sep, [facility] [address] [id number] [place] [address] Aug, [facility] [address] [id number] [place] [address] Aug, [facility] [address] [id number] [place] [address] Jul, [facility] [address] [id number] [place] [address] Jul, [facility] [address] [id number] [place] [address] Jul, [facility] [address] [id number] [place] [address] 24 Jun, 2011 [facility] [address] [id number] [place] [address] 14 Nov, 2010 [facility] [address] [id number] [place] [address] Aug, [facility] [address] [id number] [place] [address] Aug, [facility] [address] [id number] [place] [address] Aug, [facility] [address] [id number] [place] [address] Jul, [facility] [address] [id number] [place] [address] Jul, [facility] [address] [id number] [place] [address] Jun, [facility] [address] [id number] [place] [address] Jun, [facility] [address] [id number] [place] [address] Aug, [facility] [address] [id number] [place] [address] Aug, [facility] [address] [id number] [place] [address] Aug, [facility] [address] [id number] [place] [address] 30 Jul, 2009 [facility] [address] [id number] [place] [address] Jul, [facility] [address] [id number] [place] [address] Jul, [facility] [address] [id number] [place] [address] Jun, [facility] [address] [id number] [place] [address] Jun, [facility] [address] [id number] [place] [address] Jun, IMMUNIZATIONS No Known Immunizations SOCIAL HISTORY Never Assessed REASON FOR VISIT PLAN OF CARE VITAL SIGNS MEDICATIONS Unknown Medications RESULTS No Results PROCEDURES No Known procedures INSTRUCTIONS MEDICATIONS ADMINISTERED No Known Medications MEDICAL (GENERAL) HISTORY Type Description Date 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 Medical History Kidney failure Medical History Retention of urine, unspecified Medical History Arteriosclerotic cardiovascular disease (ASCVD) Medical History Hyperosmolality and hypernatremia Medical History Age-related osteoporosis without current pathological fracture Medical History Benign essential hypertension Medical History STEMI (ST elevation myocardial infarctio n) Medical History Constipation Medical History Allergic rhinitis Medical History Oth disorders of electrolyte and fluid b alance, NEC Medical History Functional dyspepsia Medical History Hyperlipemia Medical History Herpes zoster without complication Medical History Peripheral vascular disease Medical History Unspecified hemorrhoids Medical History Hearing loss Medical History Nontraumatic intracranial hemorrhage, un specified Medical History Incontinence in female Medical History Generalized pain Medical History Conductive hearing loss Medical History Edema Medical History History of fall Medical History Difficulty walking Medical History Muscular atrophy, unspecified site Medical History Chronic UTI Surgical History Left hip replacement 2005 Surgical History right leg fx Surgical History right ankle fx Surgical History right knee arthroscopy
--- OUTSIDE RECORDS SUMMARY | 2019-12-22 20:32 | XMS REPORT ---
Author Author MELISSA Madelyn [facility]SH[facility] Address [address] [place] [address] Care Team Providers Care Sales Product Manager Name Role Phone TORRESBRENNENA Unavailable PROBLEMS Type Condition ICD9-CM Code [id number] Code Onset Dates Condition S tatus SNOMED Code Problem Cough R05 Active 97535865 Problem Hypertension I10 Active 8031147 3 Problem PAD (peripheral artery disease) I73.9 Active 361222059 Problem Mixed hyperlipidemia E78.2 Active 397442535 Problem Atrial fibrillation, unspecified type I48.91 Active 72354609 Problem GERD (gastroesophageal reflux disease) K21.9 Active 240279640 Problem RLS (restless legs syndrome) G25.81 A ctive 86577281 Problem Venous insufficiency I87.2 Active 43714029 Problem Dorsalgia, unspecified M54.9 Active 786473647 Problem OAB (overactive bladder) N32.81 Activ e [id number] ALLERGIES No Information ENCOUNTERS Encounter Location Date Diagnosis [address] [address] Nov, [facility] [address] [place] [id number] Oct, Hypertension I10 ; Venous insufficiency I87.2 ; RLS (restless legs syndrome) G25.81 ; OAB (overactive bladder) N32.81 ; PAD (peripheral artery disease) I73.9 ; Chronic atrial fibrillation I48.20 and Weakness R53.1 [facility] [address] [address] Aug, Hypertension I10 [place] [address] [address] Jul, [place] [address] [address] Jul, [facility] [address] [id number] [place] [address] May, [address] [place] [address] Apr, [facility] [id number] [place] [address] Apr, RLS (restless legs syndrome) G25.81 and Urinary tract infection without hematuria, site unspecified N39.0 [place] [id number] [place] [address] Mar, Urinary tract infection without hematuri a, site unspecified N39.0 [facility] [address] [place] [id number] Mar, Dysuria R30.0 [address] [place] [address] Feb, [place] [address] [address] Feb, Venous insufficiency I87.2 [place] [id number] [place] [address] January, Left hip pain M25.552 [place] [id number] [place] [address] Dec, [place] [address] [address] Nov, [facility] [address] [place] [id number] Nov, Encounter for Medicare annual wellness e xam Z00.00 ; Hypertension I10 ; UTI (urinary tract infection) N39.0 ; Venous insufficiency I87.2 ; OAB (overactive bladder) N32.81 ; GERD (gastroesophageal reflux disease) K21.9 and Mixed hyperlipidemia E78.2 [place] [id number] [place] [address] Nov, [facility] [address] [place] [id number] Jul, Hypertension I10 ; Gastroesophageal refl ux disease without esophagitis K21.9 and PAD (peripheral artery disease) I73.9 [place] [address] [address] May, [facility] [address] [place] [id number] Mar, Hypertension I10 [place] [address] [address] Dec, [place] [address] [address] Dec, [facility] [address] [place] [id number] Dec, Bronchitis J40 Via [facility] [address] [place] [id number] Oct, Hypertension I10 [place] [address] [id number] [place] [id number] Aug, [facility] [address] [place] [id number] Jul, Cough R05 [place] [address] [address] Jul, [place] [address] [address] Jul, [facility] [address] [place] [id number] Jun, Hypertension I10 ; Gastroesophageal refl ux disease without esophagitis K21.9 ; Venous insufficiency I87.2 and OAB (overactive bladder) N32.81 [facility] [address] [place] [id number] Apr, Hypertension I10 and Venous insufficienc y I87.2 [place] [address] [id number] [place] [id number] Apr, Encounter for other screening for malign ant neoplasm of breast Z12.39 [place] [address] [place] [address] Mar, [facility] [id number] [place] [address] Feb, [facility] [id number] [place] [address] Feb, [facility] [id number] [place] [address] January, UTI (urinary tract infection) N39.0 [facility] [id number] [place] [address] January, UTI (urinary tract infection) N39.0 [facility] [address] [address] January, [facility] [id number] [place] [address] Dec, Bronchitis J40 [facility] [address] [place] [id number] Dec, Bronchitis J40 [facility] [address] [id number] [facility] [place] [id number] Nov, [facility] [address] [id number] [place] [id number] Nov, [facility] [address] [place] [id number] Nov, OAB (overactive bladder) N32.81 ; Dysuri a R30.0 ; Hypertension I10 and Mixed hyperlipidemia E78.2 [facility] [id number] [place] [address] Oct, [facility] [address] [address] Sep, [facility] [address] [address] Sep, [facility] [address] [place] [id number] Aug, Hypertension I10 ; Mixed hyperlipidemia E78.2 and OAB (overactive bladder) N32.81 [facility] [address] [address] Aug, [facility] [address] [address] Aug, [facility] [address] [address] Aug, [facility] [address] [address] Jun, [facility] [address] [address] Jun, [facility] [address] [address] Jun, [facility] [address] [address] Jun, [facility] [address] [address] May, [facility] [address] [address] Apr, Encounter for other screening for malign ant neoplasm of breast Z12.39 [place] [address] [address] Apr, Encounter for other screening for malign ant neoplasm of breast Z12.39 [place] [address] [address] Mar, Hypertension I10 ; Acute cystitis withou t hematuria N30.00 ; Venous insufficiency I87.2 ; RLS (restless legs syndrome) G25.81 ; Dorsalgia, unspecified M54.9 and Other chronic pain G89.29 [facility] [address] [address] Feb, [facility] [address] [address] January, [facility] [address] [address] January, [facility] [id number] [place] [address] Oct, [facility] [id number] [place] [address] Aug, Dysuria R30.0 [facility] [id number] [place] [address] Aug, [facility] [id number] [place] [address] Aug, [facility] [id number] [place] [address] Jul, Hypertension I10 ; UTI (urinary tract in fection) N39.0 ; GERD (gastroesophageal reflux disease) K21.9 and PAD (peripheral artery disease) I73.9 [facility] [id number] [place] [address] Jun, [facility] [id number] [place] [address] Jun, [facility] [id number] [place] [address] Jun, [facility] [id number] [place] [address] May, [facility] [id number] [place] [address] Apr, [facility] [id number] [place] [address] Apr, [facility] [id number] [place] [address] Apr, Breast cancer screening V76.10 [facility] [id number] [place] [address] Apr, [facility] [id number] [place] [address] Mar, [facility] [address] [address] Mar, [facility] [address] [id number] [place] [address] Mar, [facility] [address] [id number] [place] [address] Feb, [facility] [address] [id number] [place] [address] Feb, [facility] [address] [id number] [place] [address] January, [facility] [address] [id number] [place] [address] January, [facility] [address] [id number] [place] [address] January, [facility] [address] [id number] [place] [address] January, [facility] [address] [id number] [place] [address] Dec, [facility] [address] [id number] [place] [address] Dec, [facility] [address] [id number] [place] [address] Nov, [facility] [address] [id number] [place] [address] Nov, [facility] [address] [id number] [place] [address] Nov, [facility] [address] [id number] [place] [address] Nov, [facility] [address] [id number] [place] [address] Oct, [facility] [address] [id number] [place] [address] Oct, [facility] [address] [id number] [place] [address] Oct, [facility] [address] [id number] [place] [address] Oct, [facility] [address] [id number] [place] [address] Oct, [facility] [address] [id number] [place] [address] Sep, [facility] [address] [id number] [place] [address] Sep, [facility] [address] [id number] [place] [address] Sep, [facility] [address] [id number] [place] [address] Sep, [facility] [address] [id number] [place] [address] Aug, [facility] [id number] [place] [address] Aug, [facility] [address] [id number] [place] [address] Aug, [facility] [address] [id number] [place] [address] Aug, [facility] [address] [id number] [place] [address] Jul, [facility] [address] [id number] [place] [address] Jul, [facility] [address] [id number] [place] [address] Jul, [facility] [address] [id number] [place] [address] Jul, [facility] [id number] [place] [address] Jul, [facility] [address] [id number] [place] [address] Jul, [facility] [address] [id number] [place] [address] May, [facility] [address] [facility] [id number] [facility] [place] [address] May, [facility] [address] [facility] [id number] [facility] [place] [address] May, [facility] [address] [facility]] [id number] [place] [address] May, [facility] [address] [facility] [id number] [facility] [place] [address] Apr, [facility] [address] [facility] [id number] [facility] [place] [address] Apr, [facility] [address] [facility] [id number] [facility] [place] [address] Apr, [facility] [address] [id number] [place] [address] Apr, [facility] [address] [id number] [place] [address] Mar, [facility] [address] [facility] [id number] [place] [address] Mar, [facility] [address] [id number] [place] [address] Mar, [facility] [address] [id number] [place] [address] Mar, [facility] [address] [id number] [place] [address] Feb, [facility] [address] [facility] [id number] [place] [address] Feb, [facility] [address] [facility]] [id number] [place] [address] Feb, [facility] [address] [facility]] [id number] [place] [address] Feb, [facility] [address] [id number] [place] [address] Feb, [facility] [address] [id number] [facility] [place] [address] Feb, [facility] [address] [id number] [place] [address] January, [facility] [address] [id number] [place] [address] January, [facility] [address] [id number] [place] [address] January, [facility] [address] [id number] [place] [address] January, [facility] [address] [id number] [place] [address] January, [facility] [address] [id number] [place] [address] January, [facility] [address] [id number] [place] [address] January, [facility] [address] [id number] [place] [address] January, [facility] [address] [id number] [place] [address] Dec, [facility] [address] [id number] [place] [address] Dec, [facility] [address] [id number] [place] [address] Dec, [facility] [address] [id number] [place] [address] Dec, [facility] [address] [id number] [place] [address] Dec, [facility] [address] [id number] [place] [address] Dec, [facility] [address] [id number] [place] [address] Dec, [facility] [address] [id number] [place] [address] Dec, [facility] [address] [id number] [place] [address] Dec, [facility] [address] [id number] [place] [address] Dec, [facility] [address] [id number] [place] [address] Nov, [facility] [address] [id number] [place] [address] Nov, [facility] [address] [id number] [place] [address] Nov, [facility] [address] [id number] [place] [address] Nov, [facility] [address] [id number] [place] [address] Oct, [facility] [address] [id number] [place] [address] Oct, [facility] [address] [id number] [place] [address] Oct, [facility] [address] [id number] [place] [address] Oct, [facility] [address] [id number] [place] [address] Oct, [facility] [address] [id number] [place] [address] Oct, [facility] [address] [id number] [place] [address] Sep, [facility] [address] [id number] [place] [address] Sep, [facility] [address] [id number] [place] [address] Sep, [facility] [address] [id number] [place] [address] Sep, [facility] [address] [id number] [place] [address] Sep, [facility] [address] [facility] [id number] [place] [address] Sep, [facility] [address] [id number] [place] [address] Sep, [facility] [address] [id number] [place] [address] Sep, [facility] [address] [id number] [place] [address] Aug, [facility] [address] [facility]] [id number] [place] [address] Aug, [facility] [address] [id number] [place] [address] Aug, [facility] [address] [id number] [place] [address] Aug, [facility] [address] [id number] [place] [address] Aug, [facility] [address] [id number] [place] [address] Aug, [facility] [address] [id number] [place] [address] Aug, [facility] [address] [id number] [place] [address] Aug, [facility] [address] [id number] [place] [address] 15 Jul, 2013 [facility] [address] [id number] [place] [address] Jul, [facility] [address] [id number] [place] [address] Jul, [facility] [address] [id number] [place] [address] Jul, [facility] [address] [id number] [place] [address] Jul, [facility] [address] [id number] [place] [address] 08 Jul, 2012 [facility] [address] [id number] [place] [address] Jul, 2012 [facility] [address] [id number] [place] [address] Jul, 2012 [facility] [address] [id number] [place] [address] Jul, 2012 [facility] [address] [id number] [place] [address] Jul, 2012 [facility] [address] [id number] [place] [address] Jul, 2012 [facility] [address] [id number] [place] [address] Jul, 2012 [facility] [address] [id number] [place] [address] Jul, 2012 [facility] [address] [id number] [place] [address] Jul, 2012 [facility] [address] [id number] [place] [address] Jul, [facility] [address] [id number] [place] [address] Jul, [facility] [address] [id number] [place] [address] Jul, [facility] [address] [id number] [place] [address] Jul, [facility] [address] [id number] [place] [address] Jul, [facility] [id number] [place] [address] Jul, [facility] [address] [id number] [place] [address] Jun, [facility] [address] [id number] [place] [address] May, [facility] [address] [facility] [place] [place] [id number] [place] [address] May, [facility] [address] [id number] [place] [address] Apr, [facility] [address] [id number] [place] [address] Apr, [facility] [address] [id number] [place] [address] Apr, [facility] [address] [facility] [place] [id number] [place] [address] Mar, [facility] [address] [id number] [place] [address] Mar, [facility] [address] [id number] [place] [address] Mar, [facility] [address] [id number] [place] [address] Mar, [facility] [address] [id number] [place] [address] Mar, [facility] [address] [id number] [place] [address] Mar, [facility] [address] [id number] [place] [address] Feb, [facility] [address] [id number] [place] [address] Feb, [facility] [address] [id number] [place] [address] Feb, [facility] [address] [id number] [place] [address] Feb, [facility] [address] [id number] [place] [address] January, [facility] [address] [id number] [place] [address] January, [facility] [address] [id number] [place] [address] Dec, [facility] [address] [id number] [place] [address] Nov, [facility] [address] [id number] [place] [address] 20 Oct, 2012 [facility] [address] [id number] [place] [address] 15 Oct, 2012 [facility] [address] [id number] [place] [address] 14 Oct, 2012 [facility] [address] [id number] [place] [address] Oct, [facility] [address] [id number] [place] [address] Oct, [facility] [id number] [place] [address] Oct, [facility] [address] [id number] [place] [address] Oct, [facility] [address] [id number] [place] [address] Sep, [facility] [address] [id number] [place] [address] Sep, [facility] [id number] [place] [address] Aug, [facility] [address] [id number] [place] [address] Aug, [facility] [address] [id number] [place] [address] Jul, [facility] [id number] [place] [address] Jul, [facility] [address] [id number] [place] [address] Jun, [facility] [id number] [place] [address] Jun, [facility] [address] [id number] [place] [address] Jun, 2011 [facility] [address] [id number] [place] [address] Jun, 2011 [facility] [address] [id number] [place] [address] Jun, 2011 [facility] [address] [id number] [place] [address] Jun, [facility] [address] [id number] [place] [address] Jun, [facility] [address] [id number] [place] [address] Jun, [facility] [address] [id number] [place] [address] Jun, [facility] [address] [id number] [place] [address] 30 May, 2011 [facility] [address] [id number] [place] [address] 25 May, 2011 [facility] [address] [id number] [place] [address] 20 May, 2011 [facility] [address] [id number] [place] [address] 18 May, 2011 [facility] [address] [id number] [place] [address] May, 2011 [facility] [address] [id number] [place] [address] 05 May, 2011 [facility] [address] [id number] [place] [address] Apr, [facility] [address] [id number] [place] [address] Mar, [facility] [address] [id number] [place] [address] Mar, [facility] [address] [id number] [place] [address] Mar, [facility] [address] [id number] [place] [address] Mar, [facility] [address] [id number] [place] [address] Mar, [facility] [address] [id number] [place] [address] Mar, [facility] [address] [id number] [place] [address] Mar, [facility] [address] [id number] [place] [address] Mar, [facility] [address] [id number] [place] [address] Feb, [facility] [address] [id number] [place] [address] Feb, [facility] [address] [id number] [place] [address] Feb, [facility] [address] [id number] [place] [address] January, [facility] [address] [id number] [place] [address] January, [facility] [address] [id number] [place] [address] January, [facility] [address] [id number] [place] [address] Dec, [facility] [address] [id number] [place] [address] Nov, [facility] [address] [id number] [place] [address] Nov, [facility] [address] [id number] [place] [address] Nov, [facility] [address] [id number] [place] [address] Nov, [facility] [address] [id number] [place] [address] Oct, [facility] [address] [id number] [place] [address] Oct, [facility] [address] [id number] [place] [address] Oct, [facility] [address] [id number] [place] [address] Oct, [facility] [address] [id number] [place] [address] Oct, [facility] [address] [id number] [place] [address] Oct, [facility] [address] [id number] [place] [address] Oct, [facility] [address] [id number] [place] [address] Sep, [facility] [address] [id number] [place] [address] Sep, [facility] [address] [id number] [place] [address] Sep, [facility] [address] [id number] [place] [address] Sep, [facility] [address] [id number] [place] [address] Sep, [facility] [address] [id number] [place] [address] Sep, [facility] [address] [id number] [place] [address] Sep, [facility] [address] [id number] [place] [address] Aug, [facility] [address] [id number] [place] [address] Aug, [facility] [address] [id number] [place] [address] Jul, [facility] [address] [id number] [place] [address] Jul, [facility] [address] [id number] [place] [address] Jul, [facility] [address] [id number] [place] [address] 24 Jun, 2011 [facility] [address] [id number] [place] [address] 14 Nov, 2010 [facility] [address] [id number] [place] [address] Aug, [facility] [address] [id number] [place] [address] Aug, [facility] [address] [id number] [place] [address] Aug, [facility] [address] [id number] [place] [address] Jul, [facility] [address] [id number] [place] [address] Jul, [facility] [address] [id number] [place] [address] Jun, [facility] [address] [id number] [place] [address] Jun, [facility] [address] [id number] [place] [address] Aug, [facility] [address] [id number] [place] [address] Aug, [facility] [address] [id number] [place] [address] Aug, [facility] [address] [id number] [place] [address] 30 Jul, 2009 [facility] [address] [id number] [place] [address] Jul, [facility] [address] [id number] [place] [address] Jul, [facility] [address] [id number] [place] [address] Jun, [facility] [address] [id number] [place] [address] Jun, [facility] [address] [id number] [place] [address] Jun, IMMUNIZATIONS No Known Immunizations SOCIAL HISTORY [...]
--- OUTSIDE RECORDS SUMMARY | 2019-12-22 20:32 | XMS REPORT ---
Author Author Madelyn TORRES [facility] Address [address] [place] [address] Care Team Providers Care Electrician Journeyman Wireman Name Role Phone MELISSABRENNENA Unavailable PROBLEMS Type Condition ICD9-CM Code QGH27-SV Code Onset Dates Condition S tatus SNOMED Code Problem Cough R05 Active 40801967 Problem Hypertension I10 Active 8530346 3 Problem PAD (peripheral artery disease) I73.9 Active 503489084 Problem Mixed hyperlipidemia E78.2 Active 459677314 Problem Atrial fibrillation, unspecified type I48.91 Active 40664242 Problem GERD (gastroesophageal reflux disease) K21.9 Active 688936140 Problem RLS (restless legs syndrome) G25.81 A ctive 88708323 Problem Venous insufficiency I87.2 Active 11353513 Problem Dorsalgia, unspecified M54.9 Active 573543719 Problem OAB (overactive bladder) N32.81 Activ e [id number] ALLERGIES No Information ENCOUNTERS Encounter Location Date Diagnosis [facility] [address] [place] [id number] Oct, Hypertension I10 ; Venous insufficiency I87.2 ; RLS (restless legs syndrome) G25.81 ; OAB (overactive bladder) N32.81 ; PAD (peripheral artery disease) I73.9 ; Chronic atrial fibrillation I48.20 and Weakness R53.1 [place] [id number] [place] [address] Aug, Hypertension I10 [place] [address] [address] Jul, [place] [address] [address] Jul, [place] [address] [address] May, [address] [place] [address] Apr, [place] [address] [address] Apr, RLS (restless legs syndrome) G25.81 and Urinary tract infection without hematuria, site unspecified N39.0 [place] [address] [address] Mar, Urinary tract infection without hematuri a, site unspecified N39.0 [facility] [address] [place] [id number] Mar, Dysuria R30.0 [address] [place] [address] Feb, [place] [address] [address] Feb, Venous insufficiency I87.2 [place] [address] [address] January, Left hip pain M25.552 [place] [address] [address] Dec, [place] [address] [address] Nov, [facility] [address] [place] [id number] Nov, Encounter for Medicare annual wellness e xam Z00.00 ; Hypertension I10 ; UTI (urinary tract infection) N39.0 ; Venous insufficiency I87.2 ; OAB (overactive bladder) N32.81 ; GERD (gastroesophageal reflux disease) K21.9 and Mixed hyperlipidemia E78.2 [place] [address] [address] Nov, Via [facility] [address] [place] [id number] Jul, Hypertension I10 ; Gastroesophageal refl ux disease without esophagitis K21.9 and PAD (peripheral artery disease) I73.9 [place] [id number] [place] [address] May, [facility] [address] [place] [id number] Mar, Hypertension I10 [place] [address] [address] Dec, [place] [address] [address] Dec, [facility] [address] [place] [id number] Dec, Bronchitis J40 Via [facility] [address] [place] [id number] Oct, Hypertension I10 [place] [id number] [place] [id number] Aug, [facility] [address] [place] [id number] Jul, Cough R05 [place] [address] [address] Jul, [place] [address] [address] Jul, [facility] [address] [place] [id number] Jun, Hypertension I10 ; Gastroesophageal refl ux disease without esophagitis K21.9 ; Venous insufficiency I87.2 and OAB (overactive bladder) N32.81 [facility] [address] [place] [id number] Apr, Hypertension I10 and Venous insufficienc y I87.2 [place] [address] [id number] [place] [id number] Apr, Encounter for other screening for malign ant neoplasm of breast Z12.39 [place] [address] [address] Mar, [place] [address] [place] [address] Feb, [facility] [id number] [place] [address] Feb, [facility] [id number] [place] [address] January, UTI (urinary tract infection) N39.0 [facility] [address] [address] January, UTI (urinary tract infection) N39.0 [facility] [id number] [place] [address] January, [facility] [address] [address] Dec, Bronchitis J40 [facility] [address] [place] [id number] Dec, Bronchitis J40 [facility] [address] [id number] [place] [id number] Nov, [facility] [address] [id number] [facility] [place] [id number] Nov, [facility] [address] [place] [id number] Nov, OAB (overactive bladder) N32.81 ; Dysuri a R30.0 ; Hypertension I10 and Mixed hyperlipidemia E78.2 [facility] [address] [place] [address] Oct, [facility] [address] [address] Sep, [facility] [address] [address] Sep, [facility] [address] [place] [id number] Aug, Hypertension I10 ; Mixed hyperlipidemia E78.2 and OAB (overactive bladder) N32.81 [facility] [address] [address] Aug, [facility] [id number] [place] [address] Aug, [facility] [address] [address] Aug, [facility] [address] [address] Jun, [facility] [address] [address] Jun, [facility] [address] [address] Jun, [facility] [address] [address] Jun, [facility] [address] [address] May, [facility] [address] [address] Apr, Encounter for other screening for malign ant neoplasm of breast Z12.39 [facility] [address] [address] Apr, Encounter for other screening for malign ant neoplasm of breast Z12.39 [facility] [address] [address] Mar, Hypertension I10 ; Acute cystitis withou t hematuria N30.00 ; Venous insufficiency I87.2 ; RLS (restless legs syndrome) G25.81 ; Dorsalgia, unspecified M54.9 and Other chronic pain G89.29 [facility] [id number] [place] [address] Feb, [facility] [address] [address] January, [facility] [address] [address] January, [facility] [address] [address] Oct, [facility] [id number] [place] [address] Aug, Dysuria R30.0 [facility] [id number] [place] [address] Aug, [facility] [address] [address] Aug, [facility] [address] [address] Jul, Hypertension I10 ; UTI (urinary tract in fection) N39.0 ; GERD (gastroesophageal reflux disease) K21.9 and PAD (peripheral artery disease) I73.9 [facility] [address] [address] Jun, [facility] [address] [address] Jun, [facility] [address] [address] Jun, [facility] [address] [address] May, [facility] [address] [address] Apr, [facility] [address] [address] Apr, [facility] [address] [address] Apr, Breast cancer screening V76.10 [facility] [address] [address] Apr, [facility] [address] [address] Mar, [facility] [address] [address] Mar, [facility] [address] [address] Mar, [facility] [place] [facility] [address] [id number] [place] [address] Feb, [facility] [place] [facility] [address] [id number] [place] [address] Feb, [facility] [place] [facility] [address] [id number] [place] [address] January, [facility] [place] [facility] [address] [id number] [place] [address] January, [facility] [place] [facility] [address] [id number] [place] [address] January, [facility] [place] [facility] [address] [id number] [place] [address] January, [facility] [place] [facility] [address] [id number] [place] [address] Dec, [facility] [place] [facility] [address] [id number] [place] [address] Dec, [facility] [place] [facility] [address] [id number] [place] [address] Nov, [facility] [place] [facility] [address] [id number] [place] [address] Nov, [facility] [place] [facility] [address] [id number] [place] [address] Nov, [facility] [place] [facility] [address] [id number] [place] [address] Nov, [facility] [place] [facility] [address] [id number] [place] [address] Oct, [facility] [place] [facility] [address] [id number] [place] [address] Oct, [facility] [place] [facility] [address] [id number] [place] [address] Oct, [facility] [place] [facility] [address] [id number] [place] [address] Oct, [facility] [place] [facility] [address] [id number] [place] [address] Oct, [facility] [place] [facility] [address] [id number] [place] [address] Sep, [facility] [place] [facility] [address] [id number] [place] [address] Sep, [facility] [place] [facility] [id number] [place] [address] Sep, [facility] [place] [facility] [address] [id number] [place] [address] Sep, [facility] [place] [facility] [address] [id number] [place] [address] Aug, [facility] [place] [facility] [address] [id number] [place] [address] Aug, [facility] [place] [facility] [id number] [place] [address] Aug, [facility] [place] [facility] [address] [id number] [place] [address] Aug, [facility] [place] [facility] [address] [id number] [place] [address] Jul, [facility] [place] [facility] [id number] [place] [address] Jul, [facility] [place] [facility] [id number] [place] [address] Jul, [facility] [place] [facility] [address] [id number] [place] [address] Jul, [facility] [place] [facility] [address] [id number] [place] [address] Jul, [facility] [place] [facility] [id number] [place] [address] Jul, [facility] [place] [facility] [address] [id number] [place] [address] May, [facility] [place] [facility] [id number] [place] [address] May, [facility] [place] [facility] [address] [id number] [facility] [address] May, [facility] [place] [facility] [address] [id number] [facility] [address] May, [facility] [place] [facility] [address] [id number] [place] [address] Apr, [facility] [place] [facility] [address] [id number] [facility] [address] Apr, [facility] [place] [facility] [address] [id number] [facility] [place] [address] Apr, [facility] [place] [facility] [address] [id number] [facility] [address] Apr, [facility] [place] [facility] [address] [id number] [place] [address] Mar, [facility] [place] [facility] [address] [id number] [place] [address] Mar, [facility] [place] [facility] [address] [facility] [facility] [id number] [place] [address] Mar, [facility] [place] [facility] [address] [id number] [place] [address] Mar, [facility] [place] [facility] [address] [id number] [place] [address] Feb, [facility] [place] [facility] [address] [id number] [place] [address] Feb, [facility] [place] [facility] [address] [id number] [place] [address] Feb, [facility] [place] [facility] [address] [id number] [place] [address] Feb, [facility] [place] [facility] [address] [id number] [place] [address] Feb, [facility] [place] [facility] [address] [id number] [place] [address] Feb, [facility] [place] [facility] [address] [id number] [place] [address] January, [facility] [place] [facility] [address] [id number] [place] [address] January, [facility] [place] [facility] [address] [id number] [place] [address] January, [facility] [place] [facility] [address] [id number] [place] [address] January, [facility] [place] [facility] [address] [id number] [place] [address] January, [facility] [place] [facility] [address] [id number] [place] [address] January, [facility] [place] [facility] [address] [id number] [place] [address] January, [facility] [place] [facility] [address] [id number] [place] [address] January, [facility] [place] [facility] [address] [id number] [place] [address] Dec, [facility] [place] [facility] [address] [id number] [place] [address] Dec, [facility] [place] [facility] [address] [id number] [place] [address] Dec, [facility] [place] [facility] [address] [id number] [place] [address] Dec, [facility] [place] [facility] [address] [id number] [place] [address] Dec, [facility] [place] [facility] [address] [id number] [place] [address] Dec, [facility] [place] [facility] [address] [id number] [place] [address] Dec, [facility] [place] [facility] [address] [id number] [place] [address] Dec, [facility] [place] [facility] [address] [id number] [place] [address] Dec, [facility] [place] [facility] [address] [id number] [place] [address] Dec, [facility] [place] [facility] [address] [id number] [place] [address] Nov, [facility] [place] [facility] [address] [id number] [place] [address] Nov, [facility] [place] [facility] [address] [id number] [place] [address] Nov, [facility] [place] [facility] [address] [id number] [place] [address] Nov, [facility] [place] [facility] [address] [id number] [place] [address] Oct, [facility] [place] [facility] [address] [id number] [place] [address] Oct, [facility] [place] [facility] [address] [id number] [place] [address] Oct, [facility] [place] [facility] [address] [id number] [place] [address] Oct, [facility] [place] [facility] [address] [id number] [place] [address] Oct, [facility] [place] [facility] [address] [id number] [place] [address] Oct, [facility] [place] [facility] [address] [id number] [place] [address] Sep, [facility] [place] [facility] [address] [id number] [place] [address] Sep, [facility] [place] [facility] [address] [id number] [place] [address] Sep, [facility] [place] [facility] [address] [id number] [place] [address] Sep, [facility] [place] [facility] [address] [id number] [place] [address] Sep, [facility] [place] [facility] [address] [id number] [place] [address] Sep, [facility] [place] [facility] [address] [facility] [facility] [id number] [place] [address] Sep, [facility] [place] [facility] [address] [id number] [place] [address] Sep, [facility] [place] [facility] [address] [id number] [place] [address] Aug, [facility] [place] [facility] [address] [id number] [place] [address] Aug, [facility] [place] [facility] [address] [id number] [place] [address] Aug, [facility] [place] [facility] [address] [id number] [place] [address] Aug, [facility] [place] [facility] [address] [id number] [place] [address] Aug, [facility] [place] [facility] [address] [id number] [place] [address] Aug, [facility] [place] [facility] [address] [id number] [place] [address] Aug, [facility] [place] [facility] [address] [id number] [place] [address] Aug, [facility] [place] [facility] [address] [id number] [place] [address] 15 Jul, 2013 [facility] [place] [facility] [address] [id number] [place] [address] Jul, [facility] [place] [facility] [address] [id number] [place] [address] Jul, [facility] [place] [facility] [address] [id number] [place] [address] Jul, [facility] [place] [facility] [address] [id number] [place] [address] 08 Jul, 2013 [facility] [place] [facility] [address] [id number] [place] [address] Jul, [facility] [place] [facility] [address] [id number] [place] [address] 07 Jul, 2012 [facility] [place] [facility] [address] [id number] [place] [address] Jul, 2012 [facility] [place] [facility] [address] [id number] [place] [address] Jul, 2012 [facility] [place] [facility] [address] [id number] [place] [address] Jul, 2012 [facility] [place] [facility] [address] [id number] [place] [address] Jul, 2012 [facility] [place] [facility] [address] [id number] [place] [address] Jul, 2012 [facility] [place] [facility] [address] [id number] [place] [address] Jul, 2012 [facility] [place] [facility] [address] [id number] [place] [address] Jul, 2012 [facility] [place] [facility] [address] [id number] [place] [address] Jul, 2012 [facility] [place] [facility] [address] [id number] [place] [address] Jul, [facility] [place] [facility] [address] [id number] [place] [address] Jul, [facility] [place] [facility] [address] [id number] [place] [address] Jul, [facility] [place] [facility] [address] [id number] [place] [address] Jul, [facility] [place] [facility] [address] [id number] [place] [address] Jul, [facility] [place] [facility] [address] [id number] [place] [address] Jun, [facility] [place] [facility] [address] [id number] [place] [address] 30 May, 2013 [facility] [place] [facility] [address] [id number] [place] [address] May, [facility] [address] [id number] [place] [address] Apr, [facility] [place] [facility] [address] [id number] [place] [address] Apr, [facility] [address] [id number] [place] [address] Apr, [facility] [address] [id number] [place] [address] Mar, [facility] [address] [facility] [id number] [place] [address] Mar, [facility] [address] [id number] [place] [address] Mar, [facility] [address] [id number] [place] [address] Mar, [facility] [address] [id number] [place] [address] Mar, [facility] [address] [id number] [place] [address] Mar, [facility] [address] [id number] [place] [address] Feb, [facility] [address] [id number] [place] [address] Feb, [facility] [address] [id number] [place] [address] Feb, [facility] [address] [id number] [place] [address] Feb, [facility] [address] [id number] [place] [address] January, [facility] [address] [id number] [place] [address] January, [facility] [address] [id number] [place] [address] Dec, [facility] [address] [id number] [place] [address] Nov, [facility] [address] [id number] [place] [address] Oct, [facility] [address] [id number] [place] [address] 15 Oct, 2012 [facility] [address] [id number] [place] [address] 14 Oct, 2012 [facility] [address] [id number] [place] [address] Oct, [facility] [address] [id number] [place] [address] Oct, [facility] [address] [id number] [place] [address] Oct, [facility] [address] [id number] [place] [address] Oct, [facility] [address] [id number] [place] [address] Sep, [facility] [address] [id number] [place] [address] Sep, [facility] [address] [id number] [place] [address] Aug, [facility] [address] [id number] [place] [address] Aug, [facility] [address] [id number] [place] [address] Jul, [facility] [address] [id number] [place] [address] Jul, [facility] [id number] [place] [address] Jun, [facility] [address] [id number] [place] [address] Jun, [facility] [address] [id number] [place] [address] Jun, [facility] [address] [facility] [id number] [place] [address] Jun, 2011 [facility] [address] [id number] [place] [address] Jun, [facility] [address] [id number] [place] [address] Jun, [facility] [address] [id number] [place] [address] Jun, [facility] [address] [id number] [place] [address] Jun, [facility] [address] [id number] [place] [address] Jun, [facility] [address] [id number] [place] [address] 30 May, 2011 [facility] [address] [id number] [place] [address] 25 May, 2011 [facility] [address] [id number] [place] [address] 20 May, 2011 [facility] [address] [id number] [place] [address] 18 May, 2012 [facility] [address] [id number] [place] [address] 06 May, 2011 [facility] [address] [id number] [place] [address] 05 May, 2011 [facility] [address] [id number] [place] [address] Apr, [facility] [address] [id number] [place] [address] Mar, [facility] [address] [id number] [place] [address] Mar, [facility] [address] [id number] [place] [address] Mar, [facility] [address] [id number] [place] [address] Mar, [facility] [address] [id number] [place] [address] Mar, [facility] [address] [id number] [place] [address] Mar, [facility] [address] [id number] [place] [address] Mar, [facility] [address] [id number] [place] [address] Mar, [facility] [address] [id number] [place] [address] Feb, [facility] [address] [id number] [place] [address] Feb, [facility] [address] [id number] [place] [address] Feb, [facility] [address] [id number] [place] [address] January, [facility] [address] [id number] [place] [address] January, [facility] [address] [id number] [place] [address] January, [facility] [address] [id number] [place] [address] Dec, [facility] [address] [id number] [place] [address] Nov, [facility] [address] [id number] [place] [address] Nov, [facility] [address] [id number] [place] [address] Nov, [facility] [address] [id number] [place] [address] Nov, [facility] [address] [id number] [place] [address] Oct, [facility] [address] [id number] [place] [address] 08 Oct, 2011 [facility] [address] [id number] [place] [address] Oct, [facility] [address] [id number] [place] [address] Oct, [facility] [address] [id number] [place] [address] Oct, [facility] [address] [id number] [place] [address] Oct, [facility] [address] [id number] [place] [address] Oct, [facility] [address] [id number] [place] [address] Sep, [facility] [address] [id number] [place] [address] Sep, [facility] [address] [id number] [place] [address] Sep, [facility] [address] [id number] [place] [address] Sep, [facility] [address] [id number] [place] [address] Sep, [facility] [address] [id number] [place] [address] Sep, [facility] [address] [id number] [place] [address] Sep, [facility] [address] [id number] [place] [address] Aug, [facility] [address] [id number] [place] [address] Aug, [facility] [address] [id number] [place] [address] Jul, [facility] [address] [id number] [place] [address] 07 Jul, 2011 [facility] [address] [id number] [place] [address] Jul, [facility] [address] [id number] [place] [address] 24 Jun, 2011 [facility] [address] [id number] [place] [address] 14 Nov, 2010 [facility] [address] [id number] [place] [address] Aug, [facility] [address] [id number] [place] [address] Aug, [facility] [address] [id number] [place] [address] Aug, [facility] [address] [id number] [place] [address] Jul, [facility] [address] [id number] [place] [address] Jul, [facility] [address] [id number] [place] [address] Jun, [facility] [address] [id number] [place] [address] Jun, [facility] [address] [id number] [place] [address] Aug, [facility] [address] [id number] [place] [address] Aug, [facility] [address] [id number] [place] [address] Aug, [facility] [address] [id number] [place] [address] 30 Jul, 2009 [facility] [address] [id number] [place] [address] Jul, [facility] [address] [id number] [place] [address] Jul, [facility] [address] [id number] [place] [address] 27 Jun, 2009 [facility] [address] [id number] [place] [address] Jun, [facility] [address] [id number] [place] [address] Jun, IMMUNIZATIONS No Known Immunizations SOCIAL HISTORY Never Assessed REASON FOR VISIT PLAN OF CARE VITAL SIGNS MEDICATIONS No Known Medications RESULTS No Results PROCEDURES No Known [...]
--- OUTSIDE RECORDS SUMMARY | 2019-12-22 20:32 | XMS REPORT ---
Author Author MELISSA Madelyn LAKSHMI [facility] Address [address] [place] [address] Care Team Providers Care [employer] Associate Name Role Phone TORRESBRENNENA Unavailable PROBLEMS Type Condition ICD9-CM Code BOQ54-NM Code Onset Dates Condition S tatus SNOMED Code Problem Cough R05 Active 18496615 Problem Hypertension I10 Active 3408996 3 Problem PAD (peripheral artery disease) I73.9 Active 121341345 Problem Mixed hyperlipidemia E78.2 Active 485261824 Problem Atrial fibrillation, unspecified type I48.91 Active 51465959 Problem GERD (gastroesophageal reflux disease) K21.9 Active 278179518 Problem RLS (restless legs syndrome) G25.81 A ctive 91406112 Problem Venous insufficiency I87.2 Active 99145429 Problem Dorsalgia, unspecified M54.9 Active 724139535 Problem OAB (overactive bladder) N32.81 Activ e 818201220 ALLERGIES No Information ENCOUNTERS Encounter Location Date Diagnosis [address] [address] Nov, Via [facility] [address] [place] [id number] Oct, Hypertension I10 ; Venous insufficiency I87.2 ; RLS (restless legs syndrome) G25.81 ; OAB (overactive bladder) N32.81 ; PAD (peripheral artery disease) I73.9 ; Chronic atrial fibrillation I48.20 and Weakness R53.1 [facility] [address] [address] Aug, Hypertension I10 [place] [address] [address] Jul, [place] [address] [address] Jul, [facility] [address] [id number] [place] [address] May, [address] [place] [address] Apr, [facility] [id number] [place] [address] Apr, RLS (restless legs syndrome) G25.81 and Urinary tract infection without hematuria, site unspecified N39.0 [place] [id number] [place] [address] Mar, Urinary tract infection without hematuri a, site unspecified N39.0 [facility] [address] [place] [id number] Mar, Dysuria R30.0 [address] [place] [address] Feb, [place] [address] [address] Feb, Venous insufficiency I87.2 [place] [address] [id number] [place] [address] January, Left hip pain M25.552 [place] [id number] [place] [address] Dec, [place] [address] [address] Nov, [facility] [address] [place] [id number] Nov, Encounter for Medicare annual wellness e xam Z00.00 ; Hypertension I10 ; UTI (urinary tract infection) N39.0 ; Venous insufficiency I87.2 ; OAB (overactive bladder) N32.81 ; GERD (gastroesophageal reflux disease) K21.9 and Mixed hyperlipidemia E78.2 [place] [id number] [place] [address] Nov, [facility] [address] [place] [id number] Jul, Hypertension I10 ; Gastroesophageal refl ux disease without esophagitis K21.9 and PAD (peripheral artery disease) I73.9 [place] [address] [address] May, [facility] [address] [place] [id number] Mar, Hypertension I10 [place] [address] [address] Dec, [place] [address] [address] Dec, [facility] [address] [place] [id number] Dec, Bronchitis J40 [facility] [employer] [address] [place] [id number] Oct, Hypertension I10 [place] [address] [id number] [place] [id number] Aug, [facility] [address] [place] [id number] Jul, Cough R05 [place] [address] [address] Jul, [place] [address] [address] Jul, [facility] [address] [place] [id number] Jun, Hypertension I10 ; Gastroesophageal refl ux disease without esophagitis K21.9 ; Venous insufficiency I87.2 and OAB (overactive bladder) N32.81 [facility] [address] [place] [id number] Apr, Hypertension I10 and Venous insufficienc y I87.2 [place] [address] [place] [id number] [place] [id number] Apr, Encounter for other screening for malign ant neoplasm of breast Z12.39 [place] [address] [place] [address] Mar, [facility] [id number] [place] [address] Feb, [facility] [id number] [place] [address] Feb, [facility] [id number] [place] [address] January, UTI (urinary tract infection) N39.0 [facility] [id number] [place] [address] January, UTI (urinary tract infection) N39.0 [facility] [address] [address] January, [facility] [id number] [place] [address] Dec, Bronchitis J40 [facility] [address] [place] [id number] Dec, Bronchitis J40 [facility] [place] [address] [id number] [facility] [place] [address] Nov, [facility] [address] [id number] [place] [id number] Nov, [facility] [address] [place] [id number] Nov, OAB (overactive bladder) N32.81 ; Dysuri a R30.0 ; Hypertension I10 and Mixed hyperlipidemia E78.2 [facility] [id number] [place] [address] Oct, [facility] [address] [address] Sep, [facility] [address] [address] Sep, [facility] [address] [place] [id number] Aug, Hypertension I10 ; Mixed hyperlipidemia E78.2 and OAB (overactive bladder) N32.81 [facility] [address] [address] Aug, [facility] [address] [address] Aug, [facility] [address] [address] Aug, [facility] [address] [address] Jun, [facility] [address] [address] Jun, [facility] [address] [address] Jun, [facility] [address] [address] Jun, [facility] [address] [address] May, [facility] [address] [address] Apr, Encounter for other screening for malign ant neoplasm of breast Z12.39 [place] [address] [address] Apr, Encounter for other screening for malign ant neoplasm of breast Z12.39 [place] [address] [address] Mar, Hypertension I10 ; Acute cystitis withou t hematuria N30.00 ; Venous insufficiency I87.2 ; RLS (restless legs syndrome) G25.81 ; Dorsalgia, unspecified M54.9 and Other chronic pain G89.29 [facility] [address] [address] Feb, [facility] [address] [address] January, [facility] [address] [address] January, [facility] [id number] [place] [address] Oct, [facility] [id number] [place] [address] Aug, Dysuria R30.0 [facility] [id number] [place] [address] Aug, [facility] [id number] [place] [address] Aug, [facility] [id number] [place] [address] Jul, Hypertension I10 ; UTI (urinary tract in fection) N39.0 ; GERD (gastroesophageal reflux disease) K21.9 and PAD (peripheral artery disease) I73.9 [facility] [id number] [place] [address] Jun, [facility] [id number] [place] [address] Jun, [facility] [address] [id number] [place] [address] Jun, [facility] [id number] [place] [address] May, [facility] [id number] [place] [address] Apr, [facility] [id number] [place] [address] Apr, [facility] [id number] [place] [address] Apr, Breast cancer screening V76.10 [facility] [id number] [place] [address] Apr, [facility] [id number] [place] [address] Mar, [facility] [address] [address] Mar, [facility] [address] [id number] [place] [address] Mar, [facility] [address] [id number] [place] [address] Feb, [facility] [address] [id number] [place] [address] Feb, [facility] [address] [id number] [place] [address] January, [facility] [address] [id number] [place] [address] January, [facility] [address] [id number] [place] [address] January, [facility] [address] [id number] [place] [address] January, [facility] [address] [id number] [place] [address] Dec, [facility] [address] [id number] [place] [address] Dec, [facility] [address] [id number] [place] [address] Nov, [facility] [address] [id number] [place] [address] Nov, [facility] [address] [id number] [place] [address] Nov, [facility] [address] [id number] [place] [address] Nov, [facility] [address] [id number] [place] [address] Oct, [facility] [address] [id number] [place] [address] Oct, [facility] [address] [id number] [place] [address] Oct, [facility] [address] [id number] [place] [address] Oct, [facility] [address] [id number] [place] [address] Oct, [facility] [address] [id number] [place] [address] Sep, [facility] [address] [id number] [place] [address] Sep, [facility] [address] [id number] [place] [address] Sep, [facility] [address] [id number] [place] [address] Sep, [facility] [address] [id number] [place] [address] Aug, [facility] [id number] [place] [address] Aug, [facility] [address] [id number] [place] [address] Aug, [facility] [address] [id number] [place] [address] Aug, [facility] [address] [id number] [place] [address] Jul, [facility] [address] [id number] [place] [address] Jul, [facility] [address] [id number] [place] [address] Jul, [facility] [address] [id number] [place] [address] Jul, [facility] [address] [id number] [place] [address] Jul, [facility] [address] [id number] [place] [address] Jul, [facility] [address] [id number] [place] [address] May, [facility] [address] [facility] [id number] [place] [address] May, [facility] [address] [facility] [id number] [place] [place] [address] May, [facility] [address] [facility] [id number] [place] [address] May, [facility] [address] [facility] [id number] [place] [place] [address] Apr, [facility] [address] [facility] [id number] [place] [address] Apr, [facility] [address] [facility] [id number] [place] [address] Apr, [facility] [address] [id number] [place] [address] Apr, [facility] [address] [id number] [place] [address] Mar, [facility] [address] [facility] [id number] [place] [address] Mar, [facility] [address] [id number] [place] [address] Mar, [facility] [address] [id number] [place] [address] Mar, [facility] [address] [id number] [place] [address] Feb, [facility] [address] [facility] [id number] [place] [address] Feb, [facility] [address] [facility] [id number] [place] [address] Feb, [facility] [address] [facility] [id number] [place] [address] Feb, [facility] [address] [id number] [place] [address] Feb, [facility] [address] [id number] [place] [address] Feb, [facility] [address] [id number] [place] [address] January, [facility] [address] [id number] [place] [address] January, [facility] [address] [id number] [place] [address] January, [facility] [address] [id number] [place] [address] January, [facility] [address] [id number] [place] [address] January, [facility] [address] [id number] [place] [address] January, [facility] [address] [id number] [place] [address] January, [facility] [address] [id number] [place] [address] January, [facility] [address] [id number] [place] [address] Dec, [facility] [address] [id number] [place] [address] Dec, [facility] [address] [id number] [place] [address] Dec, [facility] [address] [id number] [place] [address] Dec, [facility] [address] [id number] [place] [address] Dec, [facility] [address] [id number] [place] [address] Dec, [facility] [address] [id number] [place] [address] Dec, [facility] [address] [id number] [place] [address] Dec, [facility] [address] [id number] [place] [address] Dec, [facility] [address] [id number] [place] [address] Dec, [facility] [address] [id number] [place] [address] Nov, [facility] [address] [id number] [place] [address] Nov, [facility] [address] [id number] [place] [address] Nov, [facility] [address] [id number] [place] [address] Nov, [facility] [address] [id number] [place] [address] Oct, [facility] [address] [id number] [place] [address] Oct, [facility] [address] [id number] [place] [address] Oct, [facility] [address] [id number] [place] [address] Oct, [facility] [address] [id number] [place] [address] Oct, [facility] [address] [id number] [place] [address] Oct, [facility] [address] [id number] [place] [address] Sep, [facility] [address] [id number] [place] [address] Sep, [facility] [address] [id number] [place] [address] Sep, [facility] [address] [id number] [place] [address] Sep, [facility] [address] [id number] [place] [address] Sep, [facility] [address] [facility] [id number] [place] [address] Sep, [facility] [address] [id number] [place] [address] Sep, [facility] [address] [id number] [place] [address] Sep, [facility] [address] [id number] [place] [address] Aug, [facility] [address] [facility] [id number] [place] [address] Aug, [facility] [address] [id number] [place] [address] Aug, [facility] [address] [id number] [place] [address] Aug, [facility] [address] [id number] [place] [address] Aug, [facility] [address] [id number] [place] [address] Aug, [facility] [address] [id number] [place] [address] Aug, [facility] [address] [id number] [place] [address] Aug, [facility] [address] [id number] [place] [address] 15 Jul, 2013 [facility] [address] [id number] [place] [address] Jul, [facility] [address] [id number] [place] [address] Jul, [facility] [address] [id number] [place] [address] Jul, [facility] [address] [id number] [place] [address] Jul, [facility] [address] [id number] [place] [address] 08 Jul, 2012 [facility] [address] [id number] [place] [address] Jul, 2012 [facility] [address] [id number] [place] [address] Jul, 2012 [facility] [address] [id number] [place] [address] Jul, 2012 [facility] [address] [id number] [place] [address] Jul, 2012 [facility] [address] [id number] [place] [address] Jul, 2012 [facility] [address] [id number] [place] [address] Jul, 2012 [facility] [address] [id number] [place] [address] Jul, 2012 [facility] [address] [id number] [place] [address] Jul, 2012 [facility] [address] [id number] [place] [address] Jul, [facility] [address] [id number] [place] [address] Jul, [facility] [address] [id number] [place] [address] Jul, [facility] [address] [id number] [place] [address] Jul, [facility] [address] [id number] [place] [address] Jul, [facility] [id number] [place] [address] Jul, [facility] [address] [id number] [place] [address] Jun, [facility] [address] [id number] [place] [address] May, [facility] [address] [facility] [id number] [place] [address] May, [facility] [address] [id number] [place] [address] Apr, [facility] [address] [id number] [place] [address] Apr, [facility] [address] [id number] [place] [address] Apr, [facility] [address] [facility] [id number] [place] [address] Mar, [facility] [address] [id number] [place] [address] Mar, [facility] [address] [id number] [place] [address] Mar, [facility] [address] [id number] [place] [address] Mar, [facility] [address] [id number] [place] [address] Mar, [facility] [address] [id number] [place] [address] Mar, [facility] [address] [id number] [place] [address] Feb, [facility] [address] [id number] [place] [address] Feb, [facility] [address] [id number] [place] [address] Feb, [facility] [address] [id number] [place] [address] Feb, [facility] [address] [id number] [place] [address] January, [facility] [address] [id number] [place] [address] January, [facility] [address] [id number] [place] [address] Dec, [facility] [address] [id number] [place] [address] Nov, [facility] [address] [id number] [place] [address] 20 Oct, 2012 [facility] [address] [id number] [place] [address] 15 Oct, 2012 [facility] [address] [id number] [place] [address] 14 Oct, 2012 [facility] [address] [id number] [place] [address] Oct, [facility] [address] [id number] [place] [address] Oct, [facility] [id number] [place] [address] Oct, [facility] [address] [id number] [place] [address] Oct, [facility] [address] [id number] [place] [address] Sep, [facility] [address] [id number] [place] [address] Sep, [facility] [id number] [place] [address] Aug, [facility] [address] [id number] [place] [address] Aug, [facility] [address] [id number] [place] [address] Jul, [facility] [id number] [place] [address] Jul, [facility] [address] [id number] [place] [address] Jun, [facility] [id number] [place] [address] Jun, [facility] [address] [id number] [place] [address] Jun, 2011 [facility] [address] [id number] [place] [address] Jun, 2011 [facility] [address] [id number] [place] [address] Jun, 2011 [facility] [address] [id number] [place] [address] Jun, [facility] [address] [id number] [place] [address] Jun, [facility] [address] [id number] [place] [address] Jun, [facility] [address] [id number] [place] [address] Jun, [facility] [address] [id number] [place] [address] 30 May, 2011 [facility] [address] [id number] [place] [address] 25 May, 2011 [facility] [address] [id number] [place] [address] 20 May, 2011 [facility] [address] [id number] [place] [address] 18 May, 2011 [facility] [address] [id number] [place] [address] May, 2011 [facility] [address] [id number] [place] [address] 05 May, 2011 [facility] [address] [id number] [place] [address] Apr, [facility] [address] [id number] [place] [address] Mar, [facility] [address] [id number] [place] [address] Mar, [facility] [address] [id number] [place] [address] Mar, [facility] [address] [id number] [place] [address] Mar, [facility] [address] [id number] [place] [address] Mar, [facility] [address] [facility] [id number] [place] [address] Mar, [facility] [address] [id number] [place] [address] Mar, [facility] [address] [id number] [place] [address] Mar, [facility] [address] [id number] [place] [address] Feb, [facility] [address] [id number] [place] [address] Feb, [facility] [address] [id number] [place] [address] Feb, [facility] [address] [id number] [place] [address] January, [facility] [address] [id number] [place] [address] January, [facility] [address] [id number] [place] [address] January, [facility] [address] [id number] [place] [address] Dec, [facility] [address] [id number] [place] [address] Nov, [facility] [address] [id number] [place] [address] Nov, [facility] [address] [id number] [place] [address] Nov, [facility] [address] [id number] [place] [address] Nov, [facility] [address] [id number] [place] [address] Oct, [facility] [address] [id number] [place] [address] Oct, [facility] [address] [id number] [place] [address] Oct, [facility] [address] [id number] [place] [address] Oct, [facility] [address] [id number] [place] [address] Oct, [facility] [address] [id number] [place] [address] Oct, [facility] [address] [id number] [place] [address] Oct, [facility] [address] [id number] [place] [address] Sep, [facility] [address] [id number] [place] [address] Sep, [facility] [address] [id number] [place] [address] Sep, [facility] [address] [id number] [place] [address] Sep, [facility] [address] [id number] [place] [address] Sep, [facility] [address] [id number] [place] [address] Sep, [facility] [address] [id number] [place] [address] Sep, [facility] [address] [id number] [place] [address] Aug, [facility] [address] [id number] [place] [address] Aug, [facility] [address] [id number] [place] [address] Jul, [facility] [address] [id number] [place] [address] Jul, [facility] [address] [id number] [place] [address] Jul, [facility] [address] [id number] [place] [address] 24 Jun, 2011 [facility] [address] [id number] [place] [address] 14 Nov, 2010 [facility] [address] [id number] [place] [address] Aug, [facility] [address] [id number] [place] [address] Aug, [facility] [address] [id number] [place] [address] Aug, [facility] [address] [id number] [place] [address] Jul, [facility] [address] [id number] [place] [address] Jul, [facility] [address] [id number] [place] [address] Jun, [facility] [address] [id number] [place] [address] Jun, [facility] [address] [id number] [place] [address] Aug, [facility] [address] [id number] [place] [address] Aug, [facility] [address] [id number] [place] [address] Aug, [facility] [address] [id number] [place] [address] 30 Jul, 2009 [facility] [address] [id number] [place] [address] Jul, [facility] [address] [id number] [place] [address] Jul, [facility] [address] [id number] [place] [address] Jun, [facility] [address] [id number] [place] [address] Jun, [facility] [address] [id number] [place] [address] Jun, IMMUNIZATIONS No Known Immunizations SOCIAL HISTORY [...]
--- OUTSIDE RECORDS SUMMARY | 2019-12-22 20:32 | XMS REPORT ---
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 Name Role Phone TORRESBRENNENA Unavailable PROBLEMS Type Condition ICD9-CM Code AAW53-SN Code Onset Dates Condition S tatus SNOMED Code Problem Cough R05 Active 90235443 Problem Hypertension I10 Active 4711108 3 Problem PAD (peripheral artery disease) I73.9 Active 835813173 Problem Mixed hyperlipidemia E78.2 Active 506920191 Problem Atrial fibrillation, unspecified type I48.91 Active 92655113 Problem GERD (gastroesophageal reflux disease) K21.9 Active 677777444 Problem RLS (restless legs syndrome) G25.81 A ctive 23446893 Problem Venous insufficiency I87.2 Active 15814334 Problem Dorsalgia, unspecified M54.9 Active 222553619 Problem OAB (overactive bladder) N32.81 Activ e [id number] ALLERGIES No Information ENCOUNTERS Encounter Location Date Diagnosis [address] [address] Nov, Via [facility] [address] [place] [id number] Oct, Hypertension I10 ; Venous insufficiency I87.2 ; RLS (restless legs syndrome) G25.81 ; OAB (overactive bladder) N32.81 ; PAD (peripheral artery disease) I73.9 ; Chronic atrial fibrillation I48.20 and Weakness R53.1 [facility] [address] [address] Aug, Hypertension I10 [place] [address] [address] Jul, [place] [address] [address] Jul, [facility] [address] [id number] [place] [address] May, [address] [place] [address] Apr, [facility] [address] [place] [id number] [place] [address] Apr, RLS (restless legs syndrome) G25.81 and Urinary tract infection without hematuria, site unspecified N39.0 [place] [address] [place] [address] [id number] [place] [address] Mar, Urinary tract infection without hematuri a, site unspecified N39.0 [facility] [address] [place] [id number] Mar, Dysuria R30.0 [address] [place] [address] Feb, [place] [address] [address] Feb, Venous insufficiency I87.2 [place] [address] [place] [address] [id number] [place] [address] January, Left hip pain M25.552 [place] [address] [place] [address] [id number] [place] [address] Dec, [place] [address] [address] Nov, Via [facility] [address] [place] [id number] Nov, Encounter for Medicare annual wellness e xam Z00.00 ; Hypertension I10 ; UTI (urinary tract infection) N39.0 ; Venous insufficiency I87.2 ; OAB (overactive bladder) N32.81 ; GERD (gastroesophageal reflux disease) K21.9 and Mixed hyperlipidemia E78.2 [place] [address] [place] [address] [id number] [place] [address] Nov, Via [facility] [address] [place] [id number] Jul, Hypertension I10 ; Gastroesophageal refl ux disease without esophagitis K21.9 and PAD (peripheral artery disease) I73.9 [place] [address] [address] May, Via [facility] [address] [place] [id number] Mar, Hypertension I10 [place] [address] [address] Dec, [place] [address] [address] Dec, Via [facility] [address] [place] [id number] Dec, Bronchitis J40 Via [facility] [employer] [address] [place] [id number] Oct, Hypertension I10 [place] [address] [id number] [place] [id number] Aug, [facility] [address] [place] [id number] Jul, Cough R05 [place] [address] [address] Jul, [place] [address] [address] Jul, [facility] [address] [place] [id number] Jun, Hypertension I10 ; Gastroesophageal refl ux disease without esophagitis K21.9 ; Venous insufficiency I87.2 and OAB (overactive bladder) N32.81 [facility] [address] [place] [id number] Apr, Hypertension I10 and Venous insufficienc y I87.2 [place] [address] [id number] [place] [id number] Apr, Encounter for other screening for malign ant neoplasm of breast Z12.39 [place] [address] [place] [address] Mar, [facility] [address] [place] [address] [id number] [place] [address] Feb, [facility] [id number] [place] [address] Feb, [facility] [id number] [place] [address] January, UTI (urinary tract infection) N39.0 [facility] [address] [place] [address] [id number] [place] [address] January, UTI (urinary tract infection) N39.0 [facility] [address] [address] January, [facility] [address] [place] [address] [id number] [place] [address] Dec, Bronchitis J40 [facility] [address] [place] [id number] Dec, Bronchitis J40 [facility] [address] [id number] [facility] [place] [id number] Nov, [facility] [address] [id number] [place] [id number] Nov, Via [facility] [address] [place] [id number] Nov, OAB (overactive bladder) N32.81 ; Dysuri a R30.0 ; Hypertension I10 and Mixed hyperlipidemia E78.2 [facility] [address] [id number] [place] [address] Oct, [facility] [address] [address] Sep, [facility] [address] [address] Sep, Via [facility] [address] [place] [id number] Aug, Hypertension I10 ; Mixed hyperlipidemia E78.2 and OAB (overactive bladder) N32.81 [facility] [address] [address] Aug, [facility] [address] [address] Aug, [facility] [address] [address] Aug, [facility] [address] [address] Jun, [facility] [address] [address] Jun, [facility] [address] [address] Jun, [facility] [address] [address] Jun, [facility] [address] [address] May, [facility] [address] [address] Apr, Encounter for other screening for malign ant neoplasm of breast Z12.39 [place] [address] [address] Apr, Encounter for other screening for malign ant neoplasm of breast Z12.39 [place] [address] [address] Mar, Hypertension I10 ; Acute cystitis withou t hematuria N30.00 ; Venous insufficiency I87.2 ; RLS (restless legs syndrome) G25.81 ; Dorsalgia, unspecified M54.9 and Other chronic pain G89.29 [facility] [address] [address] Feb, [facility] [address] [address] January, [facility] [address] [address] January, [facility] [address] [id number] [place] [address] Oct, [facility] [id number] [place] [address] Aug, Dysuria R30.0 [facility] [id number] [place] [address] Aug, [facility] [address] [id number] [place] [address] Aug, [facility] [id number] [place] [address] Jul, Hypertension I10 ; UTI (urinary tract in fection) N39.0 ; GERD (gastroesophageal reflux disease) K21.9 and PAD (peripheral artery disease) I73.9 [facility] [address] [place] [id number] [place] [address] Jun, [facility] [address] [place] [address] [id number] [place] [address] Jun, [facility] [address] [id number] [place] [address] Jun, [facility] [address] [place] [address] [id number] [place] [address] May, [facility] [address] [id number] [place] [address] Apr, [facility] [address] [place] [address] [id number] [place] [address] Apr, [facility] [address] [place] [id number] [place] [address] Apr, Breast cancer screening V76.10 [facility] [address] [place] [address] [id number] [place] [address] Apr, [facility] [address] [place] [address] [id number] [place] [address] Mar, [facility] [address] [address] Mar, [facility] [address] [id number] [place] [address] Mar, [facility] [address] [id number] [place] [address] Feb, [facility] [address] [id number] [place] [address] Feb, [facility] [address] [id number] [place] [address] January, [facility] [address] [id number] [place] [address] January, [facility] [address] [id number] [place] [address] January, [facility] [address] [id number] [place] [address] January, [facility] [address] [id number] [place] [address] Dec, [facility] [address] [id number] [place] [address] Dec, [facility] [address] [id number] [place] [address] Nov, [facility] [address] [id number] [place] [address] Nov, [facility] [address] [id number] [place] [address] Nov, [facility] [address] [id number] [place] [address] Nov, [facility] [address] [id number] [place] [address] Oct, [facility] [address] [id number] [place] [address] Oct, [facility] [address] [id number] [place] [address] Oct, [facility] [address] [id number] [place] [address] Oct, [facility] [address] [id number] [place] [address] Oct, [facility] [address] [id number] [place] [address] Sep, [facility] [address] [id number] [place] [address] Sep, [facility] [address] [id number] [place] [address] Sep, [facility] [address] [id number] [place] [address] Sep, [facility] [address] [id number] [place] [address] Aug, [facility] [address] [place] [id number] [place] [address] Aug, [facility] [address] [id number] [place] [address] Aug, [facility] [address] [id number] [place] [address] Aug, [facility] [address] [id number] [place] [address] Jul, [facility] [address] [id number] [place] [address] Jul, [facility] [address] [id number] [place] [address] Jul, [facility] [address] [id number] [place] [address] Jul, [facility] [id number] [place] [address] Jul, [facility] [address] [id number] [place] [address] Jul, [facility] [address] [id number] [place] [address] May, [facility] [address] [facility] [id number] [facility] [place] [address] May, [facility] [address] [facility] [id number] [facility] [place] [address] May, [facility] [address] [facility] [id number] [place] [address] May, [facility] [address] [facility] [id number] [facility] [place] [address] Apr, [facility] [address] [facility] [id number] [facility] [place] [address] Apr, [facility] [address] [facility] [id number] [facility] [place] [address] Apr, [facility] [address] [id number] [place] [address] Apr, [facility] [address] [id number] [place] [address] Mar, [facility] [address] [facility] [id number] [place] [address] Mar, [facility] [address] [id number] [place] [address] Mar, [facility] [address] [id number] [place] [address] Mar, [facility] [address] [id number] [place] [address] Feb, [facility] [address] [facility] [id number] [place] [address] Feb, [facility] [address] [facility] [id number] [place] [address] Feb, [facility] [address] [facility] [id number] [place] [address] Feb, [facility] [address] [id number] [place] [address] Feb, [facility] [address] [id number] [facility] [place] [address] Feb, [facility] [address] [id number] [place] [address] January, [facility] [address] [id number] [place] [address] January, [facility] [address] [id number] [place] [address] January, [facility] [address] [id number] [place] [address] January, [facility] [address] [id number] [place] [address] January, [facility] [address] [id number] [place] [address] January, [facility] [address] [id number] [place] [address] January, [facility] [address] [id number] [place] [address] January, [facility] [address] [id number] [place] [address] Dec, [facility] [address] [id number] [place] [address] Dec, [facility] [address] [id number] [place] [address] Dec, [facility] [address] [id number] [place] [address] Dec, [facility] [address] [id number] [place] [address] Dec, [facility] [address] [id number] [place] [address] Dec, [facility] [address] [id number] [place] [address] Dec, [facility] [address] [id number] [place] [address] Dec, [facility] [address] [id number] [place] [address] Dec, [facility] [address] [id number] [place] [address] Dec, [facility] [address] [id number] [place] [address] Nov, [facility] [address] [id number] [place] [address] Nov, [facility] [address] [id number] [place] [address] Nov, [facility] [address] [id number] [place] [address] Nov, [facility] [address] [id number] [place] [address] Oct, [facility] [address] [id number] [place] [address] Oct, [facility] [address] [id number] [place] [address] Oct, [facility] [address] [id number] [place] [address] Oct, [facility] [address] [id number] [place] [address] Oct, [facility] [address] [id number] [place] [address] Oct, [facility] [address] [id number] [place] [address] Sep, [facility] [address] [id number] [place] [address] Sep, [facility] [address] [id number] [place] [address] Sep, [facility] [address] [id number] [place] [address] Sep, [facility] [address] [id number] [place] [address] Sep, [facility] [address] [facility] [id number] [place] [address] Sep, [facility] [address] [id number] [place] [address] Sep, [facility] [address] [id number] [place] [address] Sep, [facility] [address] [id number] [place] [address] Aug, [facility] [address] [facility] [id number] [place] [address] Aug, [facility] [address] [id number] [place] [address] Aug, [facility] [address] [id number] [place] [address] Aug, [facility] [address] [id number] [place] [address] Aug, [facility] [address] [id number] [place] [address] Aug, [facility] [address] [id number] [place] [address] Aug, [facility] [address] [id number] [place] [address] Aug, [facility] [address] [id number] [place] [address] 15 Jul, 2013 [facility] [address] [id number] [place] [address] Jul, [facility] [address] [id number] [place] [address] Jul, [facility] [address] [id number] [place] [address] Jul, [facility] [address] [id number] [place] [address] Jul, [facility] [address] [id number] [place] [address] 08 Jul, 2012 [facility] [address] [id number] [place] [address] Jul, 2012 [facility] [address] [id number] [place] [address] Jul, 2012 [facility] [address] [id number] [place] [address] Jul, 2012 [facility] [address] [id number] [place] [address] Jul, 2012 [facility] [address] [id number] [place] [address] Jul, 2012 [facility] [address] [id number] [place] [address] Jul, 2012 [facility] [address] [id number] [place] [address] Jul, 2012 [facility] [address] [id number] [place] [address] Jul, 2012 [facility] [address] [id number] [place] [address] Jul, [facility] [address] [id number] [place] [address] Jul, [facility] [address] [id number] [place] [address] Jul, [facility] [address] [id number] [place] [address] Jul, [facility] [address] [id number] [place] [address] Jul, [facility] [id number] [place] [address] Jul, [facility] [address] [id number] [place] [address] Jun, [facility] [address] [id number] [place] [address] May, [facility] [address] [facility] [id number] [place] [address] May, [facility] [id number] [place] [address] Apr, [facility] [address] [id number] [place] [address] Apr, [facility] [address] [id number] [place] [address] Apr, [facility] [address] [facility] [id number] [place] [address] Mar, [facility] [address] [id number] [place] [address] Mar, [facility] [address] [id number] [place] [address] Mar, [facility] [address] [id number] [place] [address] Mar, [facility] [address] [id number] [place] [address] Mar, [facility] [address] [id number] [place] [address] Mar, [facility] [address] [id number] [place] [address] Feb, [facility] [address] [id number] [place] [address] Feb, [facility] [address] [id number] [place] [address] Feb, [facility] [address] [id number] [place] [address] Feb, [facility] [address] [id number] [place] [address] January, [facility] [address] [id number] [place] [address] January, [facility] [id number] [place] [address] Dec, [facility] [address] [id number] [place] [address] Nov, [facility] [address] [id number] [place] [address] 20 Oct, 2012 [facility] [address] [id number] [place] [address] 15 Oct, 2012 [facility] [id number] [place] [address] 14 Oct, 2012 [facility] [address] [id number] [place] [address] Oct, [facility] [address] [id number] [place] [address] Oct, [facility] [id number] [place] [address] Oct, [facility] [address] [id number] [place] [address] Oct, [facility] [id number] [place] [address] Sep, [facility] [id number] [place] [address] Sep, [facility] [id number] [place] [address] Aug, [facility] [address] [id number] [place] [address] Aug, [facility] [id number] [place] [address] Jul, [facility] [id number] [place] [address] Jul, [facility] [id number] [place] [address] Jun, [facility] [id number] [place] [address] Jun, [facility] [address] [id number] [place] [address] Jun, 2011 [facility] [address] [id number] [place] [address] Jun, 2011 [facility] [address] [id number] [place] [address] Jun, 2011 [facility] [address] [id number] [place] [address] Jun, [facility] [id number] [place] [address] Jun, [facility] [address] [id number] [place] [address] Jun, [facility] [address] [id number] [place] [address] Jun, [facility] [address] [id number] [place] [address] 30 May, 2011 [facility] [address] [id number] [place] [address] 25 May, 2011 [facility] [address] [id number] [place] [address] 20 May, 2011 [facility] [id number] [place] [address] 18 May, 2011 [facility] [id number] [place] [address] May, 2011 [facility] [id number] [place] [address] 05 May, 2011 [facility] [id number] [place] [address] Apr, [facility] [id number] [place] [address] Mar, [facility] [id number] [place] [address] Mar, [facility] [id number] [place] [address] Mar, [facility] [id number] [place] [address] Mar, [facility] [id number] [place] [address] Mar, [facility] [id number] [place] [address] Mar, [facility] [id number] [place] [address] Mar, [facility] [id number] [place] [address] Mar, [facility] [id number] [place] [address] Feb, [facility] [id number] [place] [address] Feb, [facility] [id number] [place] [address] Feb, [facility] [id number] [place] [address] January, [facility] [id number] [place] [address] January, [facility] [id number] [place] [address] January, [facility] [id number] [place] [address] Dec, [facility] [id number] [place] [address] Nov, [facility] [id number] [place] [address] Nov, [facility] [id number] [place] [address] Nov, [facility] [id number] [place] [address] Nov, [facility] [id number] [place] [address] Oct, [facility] [id number] [place] [address] Oct, [facility] [id number] [place] [address] Oct, [facility] [id number] [place] [address] Oct, [facility] [id number] [place] [address] Oct, [facility] [id number] [place] [address] Oct, [facility] [id number] [place] [address] Oct, [facility] [id number] [place] [address] Sep, [facility] [id number] [place] [address] Sep, [facility] [id number] [place] [address] Sep, [facility] [id number] [place] [address] Sep, [facility] [id number] [place] [address] Sep, [facility] [id number] [place] [address] Sep, [facility] [id number] [place] [address] Sep, [facility] [id number] [place] [address] Aug, [facility] [id number] [place] [address] Aug, [facility] [id number] [place] [address] Jul, [facility] [id number] [place] [address] Jul, [facility] [id number] [place] [address] Jul, [facility] [id number] [place] [address] 24 Jun, 2011 [facility] [id number] [place] [address] 14 Nov, 2010 [facility] [id number] [place] [address] Aug, [facility] [id number] [place] [address] Aug, [facility] [id number] [place] [address] Aug, [facility] [id number] [place] [address] Jul, [facility] [id number] [place] [address] Jul, [facility] [id number] [place] [address] Jun, [facility] [id number] [place] [address] Jun, [facility] [id number] [place] [address] Aug, [facility] [id number] [place] [address] Aug, [facility] [id number] [place] [address] Aug, [facility] [id number] [place] [address] 30 Jul, 2009 [facility] [id number] [place] [address] Jul, [facility] [id number] [place] [address] Jul, [facility] [id number] [place] [address] Jun, [facility] [id number] [place] [address] Jun, [facility] [id number] [place] [address] Jun, IMMUNIZATIONS No Known Immunizations SOCIAL HISTORY [...]
--- OUTSIDE RECORDS SUMMARY | 2019-12-22 20:32 | XMS REPORT ---
Author Author Madelyn TORRESA [facility] Address [address] [place] [address] Care Team Providers Care Resort Manager Name Role Phone TORRESBRENNENA Unavailable PROBLEMS Type Condition ICD9-CM Code OSV30-LD Code Onset Dates Condition S tatus SNOMED Code Problem Cough R05 Active 11741676 Problem Hypertension I10 Active 6944408 3 Problem PAD (peripheral artery disease) I73.9 Active 212063672 Problem Mixed hyperlipidemia E78.2 Active 354930826 Problem Atrial fibrillation, unspecified type I48.91 Active 17782029 Problem GERD (gastroesophageal reflux disease) K21.9 Active 070352343 Problem RLS (restless legs syndrome) G25.81 A ctive 62247307 Problem Venous insufficiency I87.2 Active 69625722 Problem Dorsalgia, unspecified M54.9 Active 989671485 Problem OAB (overactive bladder) N32.81 Activ e [id number] ALLERGIES No Information ENCOUNTERS Encounter Location Date Diagnosis [address] [address] Nov, Via [facility] [address] [place] [id number] Oct, Hypertension I10 ; Venous insufficiency I87.2 ; RLS (restless legs syndrome) G25.81 ; OAB (overactive bladder) N32.81 ; PAD (peripheral artery disease) I73.9 ; Chronic atrial fibrillation I48.20 and Weakness R53.1 [facility] [address] [address] Aug, Hypertension I10 [place] [address] [address] Jul, [place] [address] [address] Jul, [facility] [address] [id number] [place] [address] May, [address] [place] [address] Apr, [facility] [id number] [place] [address] Apr, RLS (restless legs syndrome) G25.81 and Urinary tract infection without hematuria, site unspecified N39.0 [place] [id number] [place] [address] Mar, Urinary tract infection without hematuri a, site unspecified N39.0 [facility] [address] [place] [id number] Mar, Dysuria R30.0 [address] [place] [address] Feb, [place] [address] [address] Feb, Venous insufficiency I87.2 [place] [address] [place] [id number] [place] [address] January, Left hip pain M25.552 [place] [id number] [place] [address] Dec, [place] [address] [address] Nov, [facility] [address] [place] [id number] Nov, Encounter for Medicare annual wellness e xam Z00.00 ; Hypertension I10 ; UTI (urinary tract infection) N39.0 ; Venous insufficiency I87.2 ; OAB (overactive bladder) N32.81 ; GERD (gastroesophageal reflux disease) K21.9 and Mixed hyperlipidemia E78.2 [place] [id number] [place] [address] Nov, [facility] [address] [place] [id number] Jul, Hypertension I10 ; Gastroesophageal refl ux disease without esophagitis K21.9 and PAD (peripheral artery disease) I73.9 [place] [address] [address] May, [facility] [address] [place] [id number] Mar, Hypertension I10 [place] [address] [address] Dec, [place] [address] [address] Dec, [facility] [address] [place] [id number] Dec, Bronchitis J40 [facility] [employer] [address] [place] [id number] Oct, Hypertension I10 [place] [address] [id number] [place] [id number] Aug, [facility] [address] [place] [id number] Jul, Cough R05 [place] [address] [address] Jul, [place] [address] [address] Jul, [facility] [address] [place] [id number] Jun, Hypertension I10 ; Gastroesophageal refl ux disease without esophagitis K21.9 ; Venous insufficiency I87.2 and OAB (overactive bladder) N32.81 [facility] [address] [place] [id number] Apr, Hypertension I10 and Venous insufficienc y I87.2 [place] [address] [id number] [place] [address] Apr, Encounter for other screening for malign ant neoplasm of breast Z12.39 [place] [address] [place] [address] Mar, [facility] [id number] [place] [address] Feb, [facility] [id number] [place] [address] Feb, [facility] [id number] [place] [address] January, UTI (urinary tract infection) N39.0 [facility] [id number] [place] [address] January, UTI (urinary tract infection) N39.0 [facility] [address] [address] January, [facility] [id number] [place] [address] Dec, Bronchitis J40 [facility] [address] [place] [id number] Dec, Bronchitis J40 [facility] [address] [id number] [facility] [place] [address] Nov, [facility] [address] [id number] [place] [address] Nov, [facility] [address] [place] [address] Nov, OAB (overactive bladder) N32.81 ; Dysuri a R30.0 ; Hypertension I10 and Mixed hyperlipidemia E78.2 [facility] [id number] [place] [address] Oct, [facility] [address] [address] Sep, [facility] [address] [address] Sep, [facility] [address] [place] [id number] Aug, Hypertension I10 ; Mixed hyperlipidemia E78.2 and OAB (overactive bladder) N32.81 [facility] [address] [address] Aug, [facility] [address] [address] Aug, [facility] [address] [address] Aug, [facility] [address] [address] Jun, [facility] [address] [address] Jun, [facility] [address] [address] Jun, [facility] [address] [address] Jun, [facility] [address] [address] May, [facility] [address] [address] Apr, Encounter for other screening for malign ant neoplasm of breast Z12.39 [place] [address] [address] Apr, Encounter for other screening for malign ant neoplasm of breast Z12.39 [place] [address] [address] Mar, Hypertension I10 ; Acute cystitis withou t hematuria N30.00 ; Venous insufficiency I87.2 ; RLS (restless legs syndrome) G25.81 ; Dorsalgia, unspecified M54.9 and Other chronic pain G89.29 [facility] [address] [address] Feb, [facility] [address] [address] January, [facility] [address] [address] January, [facility] [id number] [place] [address] Oct, [facility] [id number] [place] [address] Aug, Dysuria R30.0 [facility] [id number] [place] [address] Aug, [facility] [id number] [place] [address] Aug, [facility] [id number] [place] [address] Jul, Hypertension I10 ; UTI (urinary tract in fection) N39.0 ; GERD (gastroesophageal reflux disease) K21.9 and PAD (peripheral artery disease) I73.9 [facility] [id number] [place] [address] Jun, [facility] [id number] [place] [address] Jun, [facility] [id number] [place] [address] Jun, [facility] [id number] [place] [address] May, [facility] [id number] [place] [address] Apr, [facility] [id number] [place] [address] Apr, [facility] [id number] [place] [address] Apr, Breast cancer screening V76.10 [facility] [id number] [place] [address] Apr, [facility] [id number] [place] [address] Mar, [facility] [address] [address] Mar, [facility] [address] [id number] [place] [address] Mar, [facility] [address] [id number] [place] [address] Feb, [facility] [address] [id number] [place] [address] Feb, [facility] [address] [id number] [place] [address] January, [facility] [address] [id number] [place] [address] January, [facility] [address] [id number] [place] [address] January, [facility] [address] [id number] [place] [address] January, [facility] [address] [id number] [place] [address] Dec, [facility] [address] [id number] [place] [address] Dec, [facility] [address] [id number] [place] [address] Nov, [facility] [address] [id number] [place] [address] Nov, [facility] [address] [id number] [place] [address] Nov, [facility] [address] [id number] [place] [address] Nov, [facility] [address] [id number] [place] [address] Oct, [facility] [address] [id number] [place] [address] Oct, [facility] [address] [id number] [place] [address] Oct, [facility] [address] [id number] [place] [address] Oct, [facility] [address] [id number] [place] [address] Oct, [facility] [address] [id number] [place] [address] Sep, [facility] [address] [id number] [place] [address] Sep, [facility] [address] [id number] [place] [address] Sep, [facility] [address] [id number] [place] [address] Sep, [facility] [address] [id number] [place] [address] Aug, [facility] [id number] [place] [address] Aug, [facility] [address] [id number] [place] [address] Aug, [facility] [address] [id number] [place] [address] Aug, [facility] [address] [id number] [place] [address] Jul, [facility] [address] [id number] [place] [address] Jul, [facility] [address] [id number] [place] [address] Jul, [facility] [address] [id number] [place] [address] Jul, [facility] [id number] [place] [address] Jul, [facility] [address] [id number] [place] [address] Jul, [facility] [address] [id number] [place] [address] May, [facility] [address] [facility] [id number] [facility] [place] [address] May, [facility] [address] [facility] [id number] [facility] [place] [address] May, [facility] [address] [facility] [id number] [place] [address] May, [facility] [address] [facility] [id number] [facility] [place] [address] Apr, [facility] [address] [facility] [id number] [facility] [place] [address] Apr, [facility] [address] [facility] [id number] [facility] [place] [address] Apr, [facility] [address] [id number] [place] [address] Apr, [facility] [address] [id number] [place] [address] Mar, [facility] [address] [facility] [id number] [place] [address] Mar, [facility] [address] [id number] [place] [address] Mar, [facility] [address] [id number] [place] [address] Mar, [facility] [address] [id number] [place] [address] Feb, [facility] [address] [facility] [id number] [place] [address] Feb, [facility] [address] [facility] [id number] [place] [address] Feb, [facility] [address] [facility] [id number] [place] [address] Feb, [facility] [address] [id number] [place] [address] Feb, [facility] [address] [id number] [facility] [place] [address] Feb, [facility] [address] [id number] [place] [address] January, [facility] [address] [id number] [place] [address] January, [facility] [address] [id number] [place] [address] January, [facility] [address] [id number] [place] [address] January, [facility] [address] [id number] [place] [address] January, [facility] [address] [id number] [place] [address] January, [facility] [address] [id number] [place] [address] January, [facility] [address] [id number] [place] [address] January, [facility] [address] [id number] [place] [address] Dec, [facility] [address] [id number] [place] [address] Dec, [facility] [address] [id number] [place] [address] Dec, [facility] [address] [id number] [place] [address] Dec, [facility] [address] [id number] [place] [address] Dec, [facility] [address] [id number] [place] [address] Dec, [facility] [address] [id number] [place] [address] Dec, [facility] [address] [id number] [place] [address] Dec, [facility] [address] [id number] [place] [address] Dec, [facility] [address] [id number] [place] [address] Dec, [facility] [address] [id number] [place] [address] Nov, [facility] [address] [id number] [place] [address] Nov, [facility] [address] [id number] [place] [address] Nov, [facility] [address] [id number] [place] [address] Nov, [facility] [address] [id number] [place] [address] Oct, [facility] [address] [id number] [place] [address] Oct, [facility] [address] [id number] [place] [address] Oct, [facility] [address] [id number] [place] [address] Oct, [facility] [address] [id number] [place] [address] Oct, [facility] [address] [id number] [place] [address] Oct, [facility] [address] [id number] [place] [address] Sep, [facility] [address] [id number] [place] [address] Sep, [facility] [address] [id number] [place] [address] Sep, [facility] [address] [id number] [place] [address] Sep, [facility] [address] [id number] [place] [address] Sep, [facility] [address] [facility] [id number] [place] [address] Sep, [facility] [address] [id number] [place] [address] Sep, [facility] [address] [id number] [place] [address] Sep, [facility] [address] [id number] [place] [address] Aug, [facility] [address] [facility] [id number] [place] [address] Aug, [facility] [address] [id number] [place] [address] Aug, [facility] [address] [id number] [place] [address] Aug, [facility] [address] [id number] [place] [address] Aug, [facility] [address] [id number] [place] [address] Aug, [facility] [address] [id number] [place] [address] Aug, [facility] [address] [id number] [place] [address] Aug, [facility] [address] [id number] [place] [address] 15 Jul, 2013 [facility] [address] [id number] [place] [address] Jul, [facility] [address] [id number] [place] [address] Jul, [facility] [address] [id number] [place] [address] Jul, [facility] [address] [id number] [place] [address] Jul, [facility] [address] [id number] [place] [address] 08 Jul, 2012 [facility] [address] [id number] [place] [address] Jul, 2012 [facility] [address] [id number] [place] [address] Jul, 2012 [facility] [address] [id number] [place] [address] Jul, 2012 [facility] [address] [id number] [place] [address] Jul, 2012 [facility] [address] [id number] [place] [address] Jul, 2012 [facility] [address] [id number] [place] [address] Jul, 2012 [facility] [address] [id number] [place] [address] Jul, 2012 [facility] [address] [id number] [place] [address] Jul, 2012 [facility] [address] [id number] [place] [address] Jul, [facility] [address] [id number] [place] [address] Jul, [facility] [address] [id number] [place] [address] Jul, [facility] [address] [id number] [place] [address] Jul, [facility] [address] [id number] [place] [address] Jul, [facility] [id number] [place] [address] Jul, [facility] [address] [id number] [place] [address] Jun, [facility] [address] [id number] [place] [address] May, [facility] [address] [facility] [id number] [place] [address] May, [facility] [address] [id number] [place] [address] Apr, [facility] [address] [id number] [place] [address] Apr, [facility] [address] [id number] [place] [address] Apr, [facility] [address] [facility] [id number] [place] [address] Mar, [facility] [address] [id number] [place] [address] Mar, [facility] [address] [id number] [place] [address] Mar, [facility] [address] [id number] [place] [address] Mar, [facility] [address] [id number] [place] [address] Mar, [facility] [address] [id number] [place] [address] Mar, [facility] [address] [id number] [place] [address] Feb, [facility] [address] [id number] [place] [address] Feb, [facility] [address] [id number] [place] [address] Feb, [facility] [address] [id number] [place] [address] Feb, [facility] [address] [id number] [place] [address] January, [facility] [address] [id number] [place] [address] January, [facility] [address] [id number] [place] [address] Dec, [facility] [address] [id number] [place] [address] Nov, [facility] [address] [id number] [place] [address] 20 Oct, 2012 [facility] [address] [id number] [place] [address] 15 Oct, 2012 [facility] [address] [id number] [place] [address] 14 Oct, 2012 [facility] [address] [id number] [place] [address] Oct, [facility] [address] [id number] [place] [address] Oct, [facility] [id number] [place] [address] Oct, [facility] [address] [id number] [place] [address] Oct, [facility] [address] [id number] [place] [address] Sep, [facility] [address] [id number] [place] [address] Sep, [facility] [id number] [place] [address] Aug, [facility] [address] [id number] [place] [address] Aug, [facility] [address] [id number] [place] [address] Jul, [facility] [id number] [place] [address] Jul, [facility] [address] [id number] [place] [address] Jun, [facility] [id number] [place] [address] Jun, [facility] [address] [id number] [place] [address] Jun, 2011 [facility] [address] [id number] [place] [address] Jun, 2011 [facility] [address] [id number] [place] [address] Jun, 2011 [facility] [address] [id number] [place] [address] Jun, [facility] [address] [id number] [place] [address] Jun, [facility] [address] [id number] [place] [address] Jun, [facility] [address] [id number] [place] [address] Jun, [facility] [address] [id number] [place] [address] 30 May, 2011 [facility] [address] [id number] [place] [address] 25 May, 2011 [facility] [address] [id number] [place] [address] 20 May, 2011 [facility] [address] [id number] [place] [address] 18 May, 2011 [facility] [address] [id number] [place] [address] May, 2011 [facility] [address] [id number] [place] [address] 05 May, 2011 [facility] [address] [id number] [place] [address] Apr, [facility] [address] [id number] [place] [address] Mar, [facility] [address] [id number] [place] [address] Mar, [facility] [address] [id number] [place] [address] Mar, [facility] [address] [id number] [place] [address] Mar, [facility] [address] [id number] [place] [address] Mar, [facility] [address] [id number] [place] [address] Mar, [facility] [address] [id number] [place] [address] Mar, [facility] [address] [id number] [place] [address] Mar, [facility] [address] [id number] [place] [address] Feb, [facility] [address] [id number] [place] [address] Feb, [facility] [address] [id number] [place] [address] Feb, [facility] [address] [id number] [place] [address] January, [facility] [address] [id number] [place] [address] January, [facility] [address] [id number] [place] [address] January, [facility] [address] [id number] [place] [address] Dec, [facility] [address] [id number] [place] [address] Nov, [facility] [address] [id number] [place] [address] Nov, [facility] [address] [id number] [place] [address] Nov, [facility] [address] [id number] [place] [address] Nov, [facility] [address] [id number] [place] [address] Oct, [facility] [address] [id number] [place] [address] Oct, [facility] [address] [id number] [place] [address] Oct, [facility] [address] [id number] [place] [address] Oct, [facility] [address] [id number] [place] [address] Oct, [facility] [address] [id number] [place] [address] Oct, [facility] [address] [id number] [place] [address] Oct, [facility] [address] [id number] [place] [address] Sep, [facility] [address] [id number] [place] [address] Sep, [facility] [address] [id number] [place] [address] Sep, [facility] [address] [id number] [place] [address] Sep, [facility] [address] [id number] [place] [address] Sep, [facility] [address] [id number] [place] [address] Sep, [facility] [address] [id number] [place] [address] Sep, [facility] [address] [id number] [place] [address] Aug, [facility] [address] [id number] [place] [address] Aug, [facility] [address] [id number] [place] [address] Jul, [facility] [address] [id number] [place] [address] Jul, [facility] [address] [id number] [place] [address] Jul, [facility] [address] [id number] [place] [address] 24 Jun, 2011 [facility] [address] [id number] [place] [address] 14 Nov, 2010 [facility] [address] [id number] [place] [address] Aug, [facility] [address] [id number] [place] [address] Aug, [facility] [address] [id number] [place] [address] Aug, [facility] [address] [id number] [place] [address] Jul, [facility] [address] [id number] [place] [address] Jul, [facility] [address] [id number] [place] [address] Jun, [facility] [address] [id number] [place] [address] Jun, [facility] [address] [id number] [place] [address] Aug, [facility] [address] [id number] [place] [address] Aug, [facility] [address] [id number] [place] [address] Aug, [facility] [address] [id number] [place] [address] 30 Jul, 2009 [facility] [address] [id number] [place] [address] Jul, [facility] [address] [id number] [place] [address] Jul, [facility] [address] [id number] [place] [address] Jun, [facility] [address] [id number] [place] [address] Jun, [facility] [address] [id number] [place] [address] Jun, IMMUNIZATIONS No Known Immunizations SOCIAL HISTORY [...]
--- OUTSIDE RECORDS SUMMARY | 2019-12-22 20:33 | XMS REPORT ---
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 Name Role Phone MELISSA LAKSHMI Unavailable PROBLEMS Type Condition ICD9-CM Code OWC23-KR Code Onset Dates Condition S tatus SNOMED Code Problem Cough R05 Active 78231563 Problem Hypertension I10 Active 3988106 3 Problem PAD (peripheral artery disease) I73.9 Active 325160402 Problem Mixed hyperlipidemia E78.2 Active 719624918 Problem GERD (gastroesophageal reflux disease) K21.9 Active 050083462 Problem RLS (restless legs syndrome) G25.81 A ctive 64924752 Problem Venous insufficiency I87.2 Active 53987844 Problem Dorsalgia, unspecified M54.9 Active 374460934 Problem OAB (overactive bladder) N32.81 Activ e [id number] ALLERGIES No Information ENCOUNTERS Encounter Location Date Diagnosis Via [facility] [address] [place] [id number] Oct, Hypertension I10 ; Venous insufficiency I87.2 ; RLS (restless legs syndrome) G25.81 ; OAB (overactive bladder) N32.81 ; PAD (peripheral artery disease) I73.9 ; Chronic atrial fibrillation I48.20 and Weakness R53.1 [facility] [address] [id number] [place] [address] Aug, Hypertension I10 [facility] [address] [id number] [place] [address] Jul, [facility] [id number] [place] [address] Jul, [facility] [address] [id number] [place] [address] May, [address] [place] [address] Apr, [facility] [id number] [place] [address] Apr, RLS (restless legs syndrome) G25.81 and Urinary tract infection without hematuria, site unspecified N39.0 [facility] [id number] [place] [address] Mar, Urinary tract infection without hematuri a, site unspecified N39.0 [facility] [address] [place] [id number] Mar, Dysuria R30.0 [address] [place] [address] Feb, [facility] [id number] [place] [address] Feb, Venous insufficiency I87.2 [facility] [id number] [place] [address] January, Left hip pain M25.552 [facility] [id number] [place] [address] Dec, [facility] [id number] [place] [address] Nov, [facility] [address] [place] [id number] Nov, Encounter for Medicare annual wellness e xam Z00.00 ; Hypertension I10 ; UTI (urinary tract infection) N39.0 ; Venous insufficiency I87.2 ; OAB (overactive bladder) N32.81 ; GERD (gastroesophageal reflux disease) K21.9 and Mixed hyperlipidemia E78.2 [address] [address] Nov, [facility] [address] [place] [id number] Jul, Hypertension I10 ; Gastroesophageal refl ux disease without esophagitis K21.9 and PAD (peripheral artery disease) I73.9 [address] [place] [id number] [place] [address] May, [facility] [address] [place] [address] Mar, Hypertension I10 [facility] [id number] [place] [address] Dec, [facility] [address] [address] Dec, [facility] [address] [place] [address] Dec, Bronchitis J40 [facility] [address] [place] [id number] Oct, Hypertension I10 [address] [id number] [place] [address] Aug, [facility] [address] [place] [address] Jul, Cough R05 [address] [place] [address] [address] Jul, [address] [address] [address] Jul, [facility] [address] [place] [address] Jun, Hypertension I10 ; Gastroesophageal refl ux disease without esophagitis K21.9 ; Venous insufficiency I87.2 and OAB (overactive bladder) N32.81 [facility] [address] [place] [address] Apr, Hypertension I10 and Venous insufficienc y I87.2 [address] [id number] [place] [id number] Apr, Encounter for other screening for malign ant neoplasm of breast Z12.39 [place] [address] [address] Mar, [address] [address] [address] Feb, [facility] [id number] [place] [address] Feb, [facility] [id number] [place] [address] January, UTI (urinary tract infection) N39.0 [facility] [id number] [place] [address] January, UTI (urinary tract infection) N39.0 [facility] [id number] [place] [address] January, [facility] [id number] [place] [address] Dec, Bronchitis J40 [facility] [address] [place] [address] Dec, Bronchitis J40 [facility] [address] [id number] [place] [address] Nov, [facility] [address] [id number] [facility] [place] [address] Nov, [facility] [address] [place] [address] Nov, OAB (overactive bladder) N32.81 ; Dysuri a R30.0 ; Hypertension I10 and Mixed hyperlipidemia E78.2 [facility] [id number] [place] [address] Oct, [facility] [address] [address] Sep, [facility] [id number] [place] [address] Sep, [facility] [address] [place] [address] Aug, Hypertension I10 ; Mixed hyperlipidemia E78.2 and OAB (overactive bladder) N32.81 [facility] [id number] [place] [address] Aug, [facility] [id number] [place] [address] Aug, [facility] [address] [address] Aug, [facility] [address] [address] Jun, [facility] [address] [address] Jun, [facility] [address] [address] Jun, [facility] [address] [address] Jun, [facility] [address] [address] May, [facility] [address] [address] Apr, Encounter for other screening for malign ant neoplasm of breast Z12.39 [facility] [address] [address] Apr, Encounter for other screening for malign ant neoplasm of breast Z12.39 [facility] [address] [address] Mar, Hypertension I10 ; Acute cystitis withou t hematuria N30.00 ; Venous insufficiency I87.2 ; RLS (restless legs syndrome) G25.81 ; Dorsalgia, unspecified M54.9 and Other chronic pain G89.29 [facility] [address] [address] Feb, [facility] [address] [address] January, [facility] [address] [address] January, [facility] [address] [address] Oct, [facility] [id number] [place] [address] Aug, Dysuria R30.0 [facility] [id number] [place] [address] Aug, [facility] [id number] [place] [address] Aug, [facility] [address] [address] Jul, Hypertension I10 ; UTI (urinary tract in fection) N39.0 ; GERD (gastroesophageal reflux disease) K21.9 and PAD (peripheral artery disease) I73.9 [facility] [address] [address] Jun, [facility] [address] [address] Jun, [facility] [address] [address] Jun, [facility] [id number] [place] [address] May, [facility] [address] [address] Apr, [facility] [address] [address] Apr, [facility] [address] [address] Apr, Breast cancer screening V76.10 [facility] [id number] [place] [address] Apr, [facility] [address] [address] Mar, [facility] [id number] [place] [address] Mar, [facility] [address] [address] Mar, [facility] [address] [id number] [place] [address] Feb, [facility] [address] [id number] [place] [address] Feb, [facility] [address] [id number] [place] [address] January, [facility] [address] [id number] [place] [address] January, [facility] [address] [id number] [place] [address] January, [facility] [address] [id number] [place] [address] January, [facility] [address] [id number] [place] [address] Dec, [facility] [address] [id number] [place] [address] Dec, [facility] [address] [id number] [place] [address] Nov, [facility] [address] [id number] [place] [address] Nov, [facility] [address] [id number] [place] [address] Nov, [facility] [address] [id number] [place] [address] Nov, [facility] [address] [id number] [place] [address] Oct, [facility] [address] [id number] [place] [address] Oct, [facility] [address] [id number] [place] [address] Oct, [facility] [address] [id number] [place] [address] Oct, [facility] [address] [id number] [place] [address] Oct, [facility] [address] [id number] [place] [address] Sep, [facility] [address] [id number] [place] [address] Sep, [facility] [address] [id number] [place] [address] Sep, [facility] [address] [id number] [place] [address] Sep, [facility] [address] [id number] [place] [address] Aug, [facility] [address] [id number] [place] [address] Aug, [facility] [id number] [place] [address] Aug, [facility] [address] [id number] [place] [address] Aug, [facility] [address] [id number] [place] [address] Jul, [facility] [id number] [place] [address] Jul, [facility] [id number] [place] [address] Jul, [facility] [address] [id number] [place] [address] Jul, [facility] [address] [id number] [place] [address] Jul, [facility] [address] [id number] [place] [address] Jul, [facility] [address] [id number] [place] [address] May, [facility] [address] [id number] [place] [address] May, [facility] [address] [id number] [facility] [place] [address] May, [facility] [address] [id number] [facility] [place] [address] May, [facility] [address] [facility] [id number] [place] [address] Apr, [facility] [address] [id number] [place] [address] Apr, [facility] [address] [facility] [id number] [facility] [place] [address] Apr, [facility] [address] [facility] [id number] [facility] [place] [address] Apr, [facility] [address] [id number] [place] [address] Mar, [facility] [address] [id number] [place] [address] Mar, [facility] [address] [id number] [place] [address] Mar, [facility] [address] [facility] [id number] [place] [address] Mar, [facility] [address] [id number] [place] [address] Feb, [facility] [address] [id number] [place] [address] Feb, [facility] [address] [id number] [place] [address] Feb, [facility] [address] [facility] [id number] [place] [address] Feb, [facility] [address] [id number] [place] [address] Feb, [facility] [address] [id number] [place] [address] Feb, [facility] [address] [id number] [place] [address] January, [facility] [address] [id number] [place] [address] January, [facility] [address] [id number] [place] [address] January, [facility] [address] [id number] [place] [address] January, [facility] [address] [id number] [place] [address] January, [facility] [address] [id number] [place] [address] January, [facility] [address] [id number] [place] [address] January, [facility] [address] [id number] [place] [address] January, [facility] [address] [id number] [place] [address] Dec, [facility] [address] [id number] [place] [address] Dec, [facility] [address] [id number] [place] [address] Dec, [facility] [address] [id number] [place] [address] Dec, [facility] [address] [id number] [place] [address] Dec, [facility] [address] [id number] [place] [address] Dec, [facility] [address] [id number] [place] [address] Dec, [facility] [address] [id number] [place] [address] Dec, [facility] [address] [id number] [place] [address] Dec, [facility] [address] [id number] [place] [address] Dec, [facility] [address] [facility] [id number] [place] [address] Nov, [facility] [address] [facility] [id number] [place] [address] Nov, [facility] [address] [id number] [place] [address] Nov, [facility] [address] [id number] [place] [address] Nov, [facility] [address] [facility] [id number] [place] [address] Oct, [facility] [address] [id number] [place] [address] Oct, [facility] [address] [id number] [place] [address] Oct, [facility] [address] [id number] [place] [address] Oct, [facility] [address] [id number] [place] [address] Oct, [facility] [address] [id number] [place] [address] Oct, [facility] [address] [id number] [place] [address] Sep, [facility] [address] [id number] [place] [address] Sep, [facility] [address] [id number] [place] [address] Sep, [facility] [address] [id number] [place] [address] Sep, [facility] [address] [id number] [place] [address] Sep, [facility] [address] [id number] [place] [address] Sep, [facility] [address] [id number] [place] [address] Sep, [facility] [address] [id number] [place] [address] Sep, [facility] [address] [id number] [place] [address] Aug, [facility] [address] [id number] [place] [address] Aug, [facility] [address] [id number] [place] [address] Aug, [facility] [address] [id number] [place] [address] Aug, [facility] [address] [id number] [place] [address] Aug, [facility] [address] [id number] [place] [address] Aug, [facility] [address] [id number] [place] [address] Aug, [facility] [address] [id number] [place] [address] Aug, [facility] [address] [id number] [place] [address] 15 Jul, 2013 [facility] [address] [id number] [place] [address] 15 Jul, 2013 [facility] [address] [id number] [place] [address] Jul, [facility] [address] [id number] [place] [address] Jul, [facility] [address] [id number] [place] [address] 08 Jul, 2013 [facility] [address] [id number] [place] [address] 08 Jul, 2013 [facility] [address] [id number] [place] [address] 07 Jul, 2012 [facility] [address] [id number] [place] [address] 07 Jul, 2012 [facility] [address] [id number] [place] [address] Jul, 2012 [facility] [address] [id number] [place] [address] Jul, 2012 [facility] [address] [id number] [place] [address] Jul, 2012 [facility] [address] [id number] [place] [address] Jul, 2012 [facility] [address] [id number] [place] [address] Jul, 2012 [facility] [address] [id number] [place] [address] Jul, 2012 [facility] [address] [id number] [place] [address] Jul, 2012 [facility] [address] [id number] [place] [address] Jul, 2012 [facility] [address] [id number] [place] [address] Jul, 2012 [facility] [address] [id number] [place] [address] Jul, 2012 [facility] [address] [id number] [place] [address] Jul, 2012 [facility] [address] [id number] [place] [address] Jul, 2012 [facility] [address] [id number] [place] [address] 03 Jun, 2013 [facility] [address] [id number] [place] [address] 30 May, 2013 [facility] [address] [id number] [place] [address] 10 May, 2012 [facility] [address] [id number] [place] [address] Apr, [facility] [address] [id number] [place] [address] Apr, [facility] [address] [id number] [place] [address] Apr, [facility] [address] [id number] [place] [address] Mar, [facility] [address] [id number] [place] [address] Mar, [facility] [address] [id number] [place] [address] Mar, [facility] [address] [id number] [place] [address] Mar, [facility] [address] [id number] [place] [address] Mar, [facility] [address] [id number] [place] [address] Mar, [facility] [address] [id number] [place] [address] Feb, [facility] [address] [id number] [place] [address] Feb, [facility] [address] [id number] [place] [address] Feb, [facility] [address] [id number] [place] [address] Feb, [facility] [address] [id number] [place] [address] January, [facility] [address] [id number] [place] [address] January, [facility] [address] [id number] [place] [address] Dec, [facility] [address] [id number] [place] [address] Nov, [facility] [address] [id number] [place] [address] 20 Oct, 2012 [facility] [address] [id number] [place] [address] 15 Oct, 2012 [facility] [address] [id number] [place] [address] 14 Oct, 2012 [facility] [address] [id number] [place] [address] Oct, [facility] [address] [id number] [place] [address] Oct, [facility] [address] [id number] [place] [address] Oct, [facility] [address] [id number] [place] [address] Oct, [facility] [address] [id number] [place] [address] Sep, [facility] [address] [id number] [place] [address] Sep, [facility] [address] [id number] [place] [address] Aug, [facility] [address] [id number] [place] [address] Aug, [facility] [address] [id number] [place] [address] Jul, [facility] [address] [id number] [place] [address] Jul, [facility] [address] [id number] [place] [address] Jun, [facility] [address] [id number] [place] [address] Jun, [facility] [address] [id number] [place] [address] Jun, [facility] [address] [id number] [facility] [place] [address] Jun, [facility] [address] [facility] [id number] [place] [place] [address] Jun, [facility] [address] [id number] [place] [address] Jun, [facility] [address] [id number] [place] [address] Jun, [facility] [address] [id number] [place] [address] Jun, [facility] [address] [id number] [place] [address] Jun, [facility] [address] [id number] [place] [address] 30 May, 2012 [facility] [address] [id number] [place] [address] 25 May, 2012 [facility] [address] [id number] [place] [address] May, [facility] [address] [id number] [place] [address] 18 May, 2012 [facility] [address] [id number] [place] [address] May, [facility] [address] [id number] [place] [address] 05 May, 2012 [facility] [address] [id number] [place] [address] Apr, [facility] [address] [id number] [place] [address] Mar, [facility] [address] [id number] [place] [address] Mar, [facility] [address] [id number] [place] [address] Mar, [facility] [address] [id number] [place] [address] Mar, [facility] [address] [id number] [place] [address] Mar, [facility] [address] [id number] [place] [address] Mar, [facility] [address] [id number] [place] [address] Mar, [facility] [address] [id number] [place] [address] Mar, [facility] [address] [id number] [place] [address] Feb, [facility] [address] [id number] [place] [address] Feb, [facility] [address] [id number] [place] [address] Feb, [facility] [address] [id number] [place] [address] January, [facility] [address] [id number] [place] [address] January, [facility] [address] [id number] [place] [address] January, [facility] [address] [id number] [place] [address] Dec, [facility] [address] [id number] [place] [address] Nov, [facility] [address] [id number] [place] [address] Nov, [facility] [address] [id number] [place] [address] Nov, [facility] [address] [id number] [place] [address] Nov, [facility] [address] [id number] [place] [address] Oct, [facility] [address] [id number] [place] [address] 08 Oct, 2011 [facility] [address] [id number] [place] [address] Oct, [facility] [address] [id number] [place] [address] Oct, [facility] [address] [id number] [place] [address] Oct, [facility] [address] [id number] [place] [address] Oct, [facility] [address] [id number] [place] [address] Oct, [facility] [address] [id number] [place] [address] Sep, [facility] [address] [id number] [place] [address] Sep, [facility] [address] [id number] [place] [address] Sep, [facility] [address] [id number] [place] [address] Sep, [facility] [address] [id number] [place] [address] Sep, [facility] [address] [id number] [place] [address] Sep, [facility] [address] [id number] [place] [address] Sep, [facility] [address] [id number] [place] [address] Aug, [facility] [address] [id number] [place] [address] Aug, [facility] [address] [id number] [place] [address] Jul, [facility] [address] [id number] [place] [address] Jul, [facility] [address] [id number] [place] [address] Jul, [facility] [address] [id number] [place] [address] 24 Jun, 2011 [facility] [address] [id number] [place] [address] Nov, [facility] [address] [id number] [place] [address] Aug, [facility] [address] [id number] [place] [address] Aug, [facility] [address] [id number] [place] [address] Aug, [facility] [address] [id number] [place] [address] Jul, [facility] [address] [id number] [place] [address] Jul, [facility] [address] [id number] [place] [address] Jun, [facility] [address] [id number] [place] [address] Jun, [facility] [address] [id number] [place] [address] Aug, [facility] [address] [id number] [place] [address] Aug, [facility] [address] [id number] [place] [address] Aug, [facility] [address] [id number] [place] [address] 30 Jul, 2009 [facility] [address] [id number] [place] [address] Jul, [facility] [address] [id number] [place] [address] Jul, [facility] [address] [id number] [place] [address] Jun, [facility] [address] [facility] [id number] [place] [address] Jun, [facility] [address] [facility] [id number] [place] [address] Jun, IMMUNIZATIONS No Known Immunizations SOCIAL HISTORY [...]
--- OUTSIDE RECORDS SUMMARY | 2019-12-22 20:33 | XMS REPORT ---
Author Author Madelyn TORRES [facility] Address [address] [place] [address] Care Team Providers Care Rural Route Carrier Name Role Phone MELISSABRENNENA Unavailable PROBLEMS Type Condition ICD9-CM Code RCO75-PK Code Onset Dates Condition S tatus SNOMED Code Problem Cough R05 Active 51926490 Problem Hypertension I10 Active 8738076 3 Problem PAD (peripheral artery disease) I73.9 Active 476821370 Problem Mixed hyperlipidemia E78.2 Active 887058366 Problem Atrial fibrillation, unspecified type I48.91 Active 75368012 Problem GERD (gastroesophageal reflux disease) K21.9 Active 003704707 Problem RLS (restless legs syndrome) G25.81 A ctive 72745270 Problem Venous insufficiency I87.2 Active 38345525 Problem Dorsalgia, unspecified M54.9 Active 180467738 Problem OAB (overactive bladder) N32.81 Activ e [id number] ALLERGIES No Information ENCOUNTERS Encounter Location Date Diagnosis Via [facility] [address] [place] [id number] Oct, Hypertension I10 ; Venous insufficiency I87.2 ; RLS (restless legs syndrome) G25.81 ; OAB (overactive bladder) N32.81 ; PAD (peripheral artery disease) I73.9 ; Chronic atrial fibrillation I48.20 and Weakness R53.1 [place] [id number] [place] [address] Aug, Hypertension I10 [place] [address] [address] Jul, [place] [address] [address] Jul, [place] [address] [address] May, [address] [place] [address] Apr, [place] [address] [address] Apr, RLS (restless legs syndrome) G25.81 and Urinary tract infection without hematuria, site unspecified N39.0 [place] [address] [address] Mar, Urinary tract infection without hematuri a, site unspecified N39.0 [facility] [address] [place] [id number] Mar, Dysuria R30.0 [address] [place] [address] Feb, [place] [address] [address] Feb, Venous insufficiency I87.2 [place] [address] [address] January, Left hip pain M25.552 [place] [address] [address] Dec, [place] [address] [address] Nov, [facility] [address] [place] [id number] Nov, Encounter for Medicare annual wellness e xam Z00.00 ; Hypertension I10 ; UTI (urinary tract infection) N39.0 ; Venous insufficiency I87.2 ; OAB (overactive bladder) N32.81 ; GERD (gastroesophageal reflux disease) K21.9 and Mixed hyperlipidemia E78.2 [place] [address] [address] Nov, Via [facility] [address] [place] [id number] Jul, Hypertension I10 ; Gastroesophageal refl ux disease without esophagitis K21.9 and PAD (peripheral artery disease) I73.9 [place] [id number] [place] [address] May, [facility] [address] [place] [id number] Mar, Hypertension I10 [place] [address] [address] Dec, [place] [address] [address] Dec, [facility] [address] [place] [id number] Dec, Bronchitis J40 Via [facility] [address] [place] [id number] Oct, Hypertension I10 [place] [id number] [place] [id number] Aug, [facility] [address] [place] [id number] Jul, Cough R05 [place] [address] [address] Jul, [place] [address] [address] Jul, Via [email or web address] [address] [place] [id number] Jun, Hypertension I10 ; Gastroesophageal refl ux disease without esophagitis K21.9 ; Venous insufficiency I87.2 and OAB (overactive bladder) N32.81 [facility] [address] [place] [id number] Apr, Hypertension I10 and Venous insufficienc y I87.2 [place] [address] [id number] [place] [id number] Apr, Encounter for other screening for malign ant neoplasm of breast Z12.39 [place] [address] [address] Mar, [place] [address] [place] [address] Feb, [facility] [id number] [place] [address] Feb, [facility] [id number] [place] [address] January, UTI (urinary tract infection) N39.0 [facility] [address] [address] January, UTI (urinary tract infection) N39.0 [facility] [id number] [place] [address] January, [facility] [address] [address] Dec, Bronchitis J40 [facility] [address] [place] [id number] Dec, Bronchitis J40 [facility] [address] [id number] [place] [id number] Nov, NONCDR. [facility] [address] [id number] [facility] [place] [id number] Nov, Via [facility] [address] [place] [id number] Nov, OAB (overactive bladder) N32.81 ; Dysuri a R30.0 ; Hypertension I10 and Mixed hyperlipidemia E78.2 [facility] [address] [place] [address] Oct, [facility] [address] [address] Sep, [facility] [address] [address] Sep, Via [facility] [address] [place] [id number] Aug, Hypertension I10 ; Mixed hyperlipidemia E78.2 and OAB (overactive bladder) N32.81 [facility] [address] [address] Aug, [facility] [id number] [place] [address] Aug, [facility] [address] [address] Aug, [facility] [address] [address] Jun, [facility] [address] [address] Jun, [facility] [address] [address] Jun, [facility] [address] [address] Jun, [facility] [address] [address] May, [facility] [address] [address] Apr, Encounter for other screening for malign ant neoplasm of breast Z12.39 [facility] [address] [address] Apr, Encounter for other screening for malign ant neoplasm of breast Z12.39 [facility] [address] [address] Mar, Hypertension I10 ; Acute cystitis withou t hematuria N30.00 ; Venous insufficiency I87.2 ; RLS (restless legs syndrome) G25.81 ; Dorsalgia, unspecified M54.9 and Other chronic pain G89.29 [facility] [id number] [place] [address] Feb, [facility] [address] [address] January, [facility] [address] [address] January, [facility] [address] [address] Oct, [facility] [id number] [place] [address] Aug, Dysuria R30.0 [facility] [id number] [place] [address] Aug, [facility] [address] [address] Aug, [facility] [address] [address] Jul, Hypertension I10 ; UTI (urinary tract in fection) N39.0 ; GERD (gastroesophageal reflux disease) K21.9 and PAD (peripheral artery disease) I73.9 [facility] [address] [address] Jun, [facility] [address] [address] Jun, [facility] [address] [address] Jun, [facility] [address] [address] May, [facility] [address] [address] Apr, [facility] [address] [address] Apr, [facility] [address] [address] Apr, Breast cancer screening V76.10 [facility] [address] [address] Apr, [facility] [address] [address] Mar, [facility] [address] [address] Mar, [facility] [address] [address] Mar, [facility] [place] [facility] [address] [id number] [place] [address] Feb, [facility] [place] [facility] [address] [id number] [place] [address] Feb, [facility] [place] [facility] [address] [id number] [place] [address] January, [facility] [place] [facility] [address] [id number] [place] [address] January, [facility] [place] [facility] [address] [id number] [place] [address] January, [facility] [place] [facility] [address] [id number] [place] [address] January, [facility] [place] [facility] [address] [id number] [place] [address] Dec, [facility] [place] [facility] [address] [id number] [place] [address] Dec, [facility] [place] [facility] [address] [id number] [place] [address] Nov, [facility] [place] [facility] [address] [id number] [place] [address] Nov, [facility] [place] [facility] [address] [id number] [place] [address] Nov, [facility] [place] [facility] [address] [id number] [place] [address] Nov, [facility] [place] [facility] [address] [id number] [place] [address] Oct, [facility] [place] [facility] [address] [id number] [place] [address] Oct, [facility] [place] [facility] [address] [id number] [place] [address] Oct, [facility] [place] [facility] [address] [id number] [place] [address] Oct, [facility] [place] [facility] [address] [id number] [place] [address] Oct, [facility] [place] [facility] [address] [id number] [place] [address] Sep, [facility] [place] [facility] [address] [id number] [place] [address] Sep, [facility] [place] [facility] [id number] [place] [address] Sep, [facility] [place] [facility] [address] [id number] [place] [address] Sep, [facility] [place] [facility] [address] [id number] [place] [address] Aug, [facility] [place] [facility] [address] [id number] [place] [address] Aug, [facility] [place] [facility] [id number] [place] [address] Aug, [facility] [place] [facility] [address] [id number] [place] [address] Aug, [facility] [place] [facility] [address] [id number] [place] [address] Jul, [facility] [place] [facility] [id number] [place] [address] Jul, [facility] [place] [facility] [id number] [place] [address] Jul, [facility] [place] [facility] [address] [id number] [place] [address] Jul, [facility] [place] [facility] [address] [id number] [place] [address] Jul, [facility] [place] [facility] [id number] [place] [address] Jul, [facility] [place] [facility] [address] [id number] [place] [address] May, [facility] [place] [facility] [id number] [place] [address] May, [facility] [place] [facility] [address] [facility] [id number] [facility] [address] May, [facility] [place] [facility] [address] [facility] [id number] [facility] [address] May, [facility] [place] [facility] [address] [facility] [id number] [place] [address] Apr, [facility] [place] [facility] [address] [facility] [id number] [facility] [address] Apr, [facility] [place] [facility] [address] [facility] [id number] [facility] [address] Apr, [facility] [place] [facility] [address] [facility] [id number] [facility] [place] [address] Apr, [facility] [place] [facility] [address] [id number] [place] [address] Mar, [facility] [place] [facility] [address] [id number] [place] [address] Mar, [facility] [place] [facility] [address] [facility] [id number] [place] [address] Mar, [facility] [place] [facility] [address] [id number] [place] [address] Mar, [facility] [place] [facility] [address] [id number] [place] [address] Feb, [facility] [place] [facility] [address] [id number] [place] [address] Feb, [facility] [place] [facility] [address] [facility] [id number] [place] [address] Feb, [facility] [place] [facility] [address] [facility] [id number] [place] [address] Feb, [facility] [place] [facility] [address] [facility] [id number] [place] [address] Feb, [facility] [place] [facility] [address] [id number] [place] [address] Feb, [facility] [place] [facility] [address] [id number] [place] [address] January, [facility] [place] [facility] [address] [id number] [place] [address] January, [facility] [place] [facility] [address] [id number] [place] [address] January, [facility] [place] [facility] [address] [id number] [place] [address] January, [facility] [place] [facility] [address] [id number] [place] [address] January, [facility] [place] [facility] [address] [id number] [place] [address] January, [facility] [place] [facility] [address] [id number] [place] [address] January, [facility] [place] [facility] [address] [id number] [place] [address] January, [facility] [place] [facility] [address] [id number] [place] [address] Dec, [facility] [place] [facility] [address] [id number] [place] [address] Dec, [facility] [place] [facility] [address] [id number] [place] [address] Dec, [facility] [place] [facility] [address] [id number] [place] [address] Dec, [facility] [place] [facility] [address] [id number] [place] [address] Dec, [facility] [place] [facility] [address] [id number] [place] [address] Dec, [facility] [place] [facility] [address] [id number] [place] [address] Dec, [facility] [place] [facility] [address] [id number] [place] [address] Dec, [facility] [place] [facility] [address] [id number] [place] [address] Dec, [facility] [place] [facility] [address] [id number] [place] [address] Dec, [facility] [place] [facility] [address] [id number] [place] [address] Nov, [facility] [place] [facility] [address] [id number] [place] [address] Nov, [facility] [place] [facility] [address] [id number] [place] [address] Nov, [facility] [place] [facility] [address] [id number] [place] [address] Nov, [facility] [place] [facility] [address] [id number] [place] [address] Oct, [facility] [place] [facility] [address] [id number] [place] [address] Oct, [facility] [place] [facility] [address] [id number] [place] [address] Oct, [facility] [place] [facility] [address] [id number] [place] [address] Oct, [facility] [place] [facility] [address] [id number] [place] [address] Oct, [facility] [place] [facility] [address] [id number] [place] [address] Oct, [facility] [place] [facility] [address] [id number] [place] [address] Sep, [facility] [place] [facility] [address] [id number] [place] [address] Sep, [facility] [place] [facility] [address] [id number] [place] [address] Sep, [facility] [place] [facility] [address] [id number] [place] [address] Sep, [facility] [place] [facility] [address] [id number] [place] [address] Sep, [facility] [place] [facility] [address] [id number] [place] [address] Sep, [facility] [place] [facility] [address] [facility] [id number] [place] [address] Sep, [facility] [place] [facility] [address] [id number] [place] [address] Sep, [facility] [place] [facility] [address] [id number] [place] [address] Aug, [facility] [place] [facility] [address] [id number] [place] [address] Aug, [facility] [place] [facility] [address] [id number] [place] [address] Aug, [facility] [place] [facility] [address] [id number] [place] [address] Aug, [facility] [place] [facility] [address] [id number] [place] [address] Aug, [facility] [place] [facility] [address] [id number] [place] [address] Aug, [facility] [place] [facility] [address] [id number] [place] [address] Aug, [facility] [place] [facility] [address] [id number] [place] [address] Aug, [facility] [place] [facility] [address] [id number] [place] [address] 15 Jul, 2013 [facility] [place] [facility] [address] [id number] [place] [address] Jul, [facility] [place] [facility] [address] [id number] [place] [address] Jul, [facility] [place] [facility] [address] [id number] [place] [address] Jul, [facility] [place] [facility] [address] [id number] [place] [address] 08 Jul, 2013 [facility] [place] [facility] [address] [id number] [place] [address] Jul, [facility] [place] [facility] [address] [id number] [place] [address] 07 Jul, 2012 [facility] [place] [facility] [address] [id number] [place] [address] Jul, 2012 [facility] [place] [facility] [address] [id number] [place] [address] Jul, 2012 [facility] [place] [facility] [address] [id number] [place] [address] Jul, 2012 [facility] [place] [facility] [address] [id number] [place] [address] Jul, 2012 [facility] [place] [facility] [address] [id number] [place] [address] Jul, 2012 [facility] [place] [facility] [address] [id number] [place] [address] Jul, 2012 [facility] [place] [facility] [address] [id number] [place] [address] Jul, 2012 [facility] [place] [facility] [address] [id number] [place] [address] Jul, 2012 [facility] [place] [facility] [address] [id number] [place] [address] Jul, [facility] [place] [facility] [address] [id number] [place] [address] Jul, [facility] [place] [facility] [address] [id number] [place] [address] Jul, [facility] [place] [facility] [address] [id number] [place] [address] Jul, [facility] [place] [facility] [address] [id number] [place] [address] Jul, [facility] [place] [facility] [address] [id number] [place] [address] Jun, [facility] [place] [facility] [address] [id number] [place] [address] 30 May, 2013 [facility] [place] [facility] [address] [id number] [place] [address] May, [facility] [address] [id number] [place] [address] Apr, [facility] [place] [facility] [address] [id number] [place] [address] Apr, [facility] [place] [facility] [address] [id number] [place] [address] Apr, [facility] [place] [facility] [address] [id number] [place] [address] Mar, [facility] [place] [facility] [address] [facility] [id number] [place] [address] Mar, [facility] [place] [facility] [address] [id number] [place] [address] Mar, [facility] [place] [facility] [address] [id number] [place] [address] Mar, [facility] [place] [facility] [address] [id number] [place] [address] Mar, [facility] [place] [facility] [address] [id number] [place] [address] Mar, [facility] [address] [id number] [place] [address] Feb, [facility] [address] [id number] [place] [address] Feb, [facility] [address] [id number] [place] [address] Feb, [facility] [address] [id number] [place] [address] Feb, [facility] [address] [id number] [place] [address] January, [facility] [address] [id number] [place] [address] January, [facility] [address] [id number] [place] [address] Dec, [facility] [address] [id number] [place] [address] Nov, [facility] [address] [id number] [place] [address] Oct, [facility] [address] [id number] [place] [address] 15 Oct, 2012 [facility] [address] [id number] [place] [address] 14 Oct, 2012 [facility] [address] [id number] [place] [address] Oct, [facility] [address] [id number] [place] [address] Oct, [facility] [address] [id number] [place] [address] Oct, [facility] [address] [id number] [place] [address] Oct, [facility] [address] [id number] [place] [address] Sep, [facility] [address] [id number] [place] [address] Sep, [facility] [address] [id number] [place] [address] Aug, [facility] [address] [id number] [place] [address] Aug, [facility] [address] [id number] [place] [address] Jul, [facility] [address] [id number] [place] [address] Jul, [facility] [id number] [place] [address] Jun, [facility] [address] [id number] [place] [address] Jun, [facility] [address] [id number] [place] [address] Jun, [facility] [address] [facility] [id number] [place] [address] Jun, 2011 [facility] [address] [id number] [place] [address] Jun, [facility] [address] [id number] [place] [address] Jun, [facility] [address] [id number] [place] [address] Jun, [facility] [address] [id number] [place] [address] Jun, [facility] [address] [id number] [place] [address] Jun, [facility] [address] [id number] [place] [address] 30 May, 2011 [facility] [address] [id number] [place] [address] 25 May, 2011 [facility] [address] [id number] [place] [address] 20 May, 2011 [facility] [address] [id number] [place] [address] 18 May, 2012 [facility] [address] [id number] [place] [address] 06 May, 2011 [facility] [address] [id number] [place] [address] 05 May, 2011 [facility] [address] [id number] [place] [address] Apr, [facility] [address] [id number] [place] [address] Mar, [facility] [address] [id number] [place] [address] Mar, [facility] [address] [id number] [place] [address] Mar, [facility] [address] [id number] [place] [address] Mar, [facility] [address] [id number] [place] [address] Mar, [facility] [address] [id number] [place] [address] Mar, [facility] [address] [id number] [place] [address] Mar, [facility] [address] [id number] [place] [address] Mar, [facility] [address] [id number] [place] [address] Feb, [facility] [address] [id number] [place] [address] Feb, [facility] [address] [id number] [place] [address] Feb, [facility] [address] [id number] [place] [address] January, [facility] [address] [id number] [place] [address] January, [facility] [address] [id number] [place] [address] January, [facility] [address] [id number] [place] [address] Dec, [facility] [address] [id number] [place] [address] Nov, [facility] [address] [id number] [place] [address] Nov, [facility] [address] [id number] [place] [address] Nov, [facility] [address] [id number] [place] [address] Nov, [facility] [address] [id number] [place] [address] Oct, [facility] [address] [id number] [place] [address] 08 Oct, 2011 [facility] [address] [id number] [place] [address] Oct, [facility] [address] [id number] [place] [address] Oct, [facility] [address] [id number] [place] [address] Oct, [facility] [address] [id number] [place] [address] Oct, [facility] [address] [id number] [place] [address] Oct, [facility] [address] [id number] [place] [address] Sep, [facility] [address] [id number] [place] [address] Sep, [facility] [address] [id number] [place] [address] Sep, [facility] [address] [id number] [place] [address] Sep, [facility] [address] [id number] [place] [address] Sep, [facility] [address] [id number] [place] [address] Sep, [facility] [address] [id number] [place] [address] Sep, [facility] [address] [id number] [place] [address] Aug, [facility] [address] [id number] [place] [address] Aug, [facility] [address] [id number] [place] [address] Jul, [facility] [address] [id number] [place] [address] 07 Jul, 2011 [facility] [address] [id number] [place] [address] Jul, [facility] [address] [id number] [place] [address] 24 Jun, 2011 [facility] [address] [id number] [place] [address] 14 Nov, 2010 [facility] [address] [id number] [place] [address] Aug, [facility] [address] [id number] [place] [address] Aug, [facility] [address] [id number] [place] [address] Aug, [facility] [address] [id number] [place] [address] Jul, [facility] [address] [id number] [place] [address] Jul, [facility] [address] [id number] [place] [address] Jun, [facility] [address] [id number] [place] [address] Jun, [facility] [address] [id number] [place] [address] Aug, [facility] [address] [id number] [place] [address] Aug, [facility] [address] [id number] [place] [address] Aug, [facility] [address] [id number] [place] [address] 30 Jul, 2009 [facility] [address] [id number] [place] [address] Jul, [facility] [address] [id number] [place] [address] Jul, [facility] [address] [id number] [place] [address] 27 Jun, 2009 [facility] [address] [id number] [place] [address] Jun, [facility] [address] [id number] [place] [address] Jun, IMMUNIZATIONS No Known Immunizations SOCIAL HISTORY [...]
--- OUTSIDE RECORDS SUMMARY | 2019-12-22 20:33 | XMS REPORT ---
Author Author Madelyn TORRES [facility] Address [address] [place] [address] Care Team Providers Care Drilling Contractor Name Role Phone MELISSABRENNENA Unavailable PROBLEMS Type Condition ICD9-CM Code SIO20-ZQ Code Onset Dates Condition S tatus SNOMED Code Problem Cough R05 Active [id number] Problem Hypertension I10 Active 6473654 3 Problem PAD (peripheral artery disease) I73.9 Active 839707652 Problem Mixed hyperlipidemia E78.2 Active 878408732 Problem Atrial fibrillation, unspecified type I48.91 Active 41459972 Problem GERD (gastroesophageal reflux disease) K21.9 Active 569255928 Problem RLS (restless legs syndrome) G25.81 A ctive 25352165 Problem Venous insufficiency I87.2 Active 17117956 Problem Dorsalgia, unspecified M54.9 Active 645259742 Problem OAB (overactive bladder) N32.81 Activ e [id number] ALLERGIES No Information ENCOUNTERS Encounter Location Date Diagnosis Via [facility] [address] [place] [id number] Oct, Hypertension I10 ; Venous insufficiency I87.2 ; RLS (restless legs syndrome) G25.81 ; OAB (overactive bladder) N32.81 ; PAD (peripheral artery disease) I73.9 ; Chronic atrial fibrillation I48.20 and Weakness R53.1 [place] [id number] [place] [address] Aug, Hypertension I10 [place] [address] [address] Jul, [place] [address] [address] Jul, [place] [address] [address] May, [address] [place] [address] Apr, [place] [address] [address] Apr, RLS (restless legs syndrome) G25.81 and Urinary tract infection without hematuria, site unspecified N39.0 [place] [address] [address] Mar, Urinary tract infection without hematuri a, site unspecified N39.0 [facility] [address] [place] [id number] Mar, Dysuria R30.0 [address] [place] [address] Feb, [place] [address] [address] Feb, Venous insufficiency I87.2 [place] [address] [address] January, Left hip pain M25.552 [place] [address] [address] Dec, [place] [address] [address] Nov, [facility] [address] [place] [id number] Nov, Encounter for Medicare annual wellness e xam Z00.00 ; Hypertension I10 ; UTI (urinary tract infection) N39.0 ; Venous insufficiency I87.2 ; OAB (overactive bladder) N32.81 ; GERD (gastroesophageal reflux disease) K21.9 and Mixed hyperlipidemia E78.2 [place] [address] [address] Nov, Via [employer] [address] [place] [id number] Jul, Hypertension I10 ; Gastroesophageal refl ux disease without esophagitis K21.9 and PAD (peripheral artery disease) I73.9 [place] [id number] [place] [address] May, [facility] [address] [place] [id number] Mar, Hypertension I10 [place] [address] [address] Dec, [place] [address] [address] Dec, [facility] [address] [place] [id number] Dec, Bronchitis J40 [facility] [address] [place] [id number] Oct, Hypertension I10 [place] [id number] [place] [id number] Aug, [facility] [address] [place] [id number] Jul, Cough R05 [place] [address] [address] Jul, [place] [address] [address] Jul, Via [facility] [address] [place] [id number] Jun, Hypertension I10 ; Gastroesophageal refl ux disease without esophagitis K21.9 ; Venous insufficiency I87.2 and OAB (overactive bladder) N32.81 [facility] [address] [place] [id number] Apr, Hypertension I10 and Venous insufficienc y I87.2 [place] [address] [id number] [place] [id number] Apr, Encounter for other screening for malign ant neoplasm of breast Z12.39 [place] [address] [address] Mar, [place] [address] [place] [address] Feb, [facility] [id number] [place] [address] Feb, [facility] [id number] [place] [address] January, UTI (urinary tract infection) N39.0 [facility] [address] [address] January, UTI (urinary tract infection) N39.0 [facility] [id number] [place] [address] January, [facility] [address] [address] Dec, Bronchitis J40 [facility] [address] [place] [id number] Dec, [facility]chitis J40 [facility] [address] [id number] [place] [id number] Nov, [facility] [address] [id number] [facility] [place] [place] [id number] Nov, [facility] [employer] [facility] [address] [place] [id number] Nov, OAB (overactive bladder) N32.81 ; Dysuri a R30.0 ; Hypertension I10 and Mixed hyperlipidemia E78.2 [facility] [id number] [place] [address] Oct, [facility] [address] [address] Sep, [facility] [address] [address] Sep, [facility] [employer] [facility] [address] [place] [id number] Aug, Hypertension I10 ; Mixed hyperlipidemia E78.2 and OAB (overactive bladder) N32.81 [facility] [address] [address] Aug, [facility] [id number] [place] [address] Aug, [facility] [address] [address] Aug, [facility] [address] [address] Jun, [facility] [address] [address] Jun, [facility] [address] [address] Jun, [facility] [address] [address] Jun, [facility] [address] [address] May, [facility] [address] [address] Apr, Encounter for other screening for malign ant neoplasm of breast Z12.39 [facility] [address] [address] Apr, Encounter for other screening for malign ant neoplasm of breast Z12.39 [facility] [address] [address] Mar, Hypertension I10 ; Acute cystitis withou t hematuria N30.00 ; Venous insufficiency I87.2 ; RLS (restless legs syndrome) G25.81 ; Dorsalgia, unspecified M54.9 and Other chronic pain G89.29 [facility] [id number] [place] [address] Feb, [facility] [address] [address] January, [facility] [address] [address] January, [facility] [address] [address] Oct, [facility] [id number] [place] [address] Aug, Dysuria R30.0 [facility] [id number] [place] [address] Aug, [facility] [address] [address] Aug, [facility] [address] [address] Jul, Hypertension I10 ; UTI (urinary tract in fection) N39.0 ; GERD (gastroesophageal reflux disease) K21.9 and PAD (peripheral artery disease) I73.9 [facility] [address] [address] Jun, [facility] [address] [address] Jun, [facility] [address] [address] Jun, [facility] [address] [address] May, [facility] [address] [address] Apr, [facility] [address] [address] Apr, [facility] [address] [address] Apr, Breast cancer screening V76.10 [facility] [address] [address] Apr, [facility] [address] [address] Mar, [facility] [address] [address] Mar, [facility] [address] [address] Mar, [facility] [place] [facility] [address] [id number] [place] [address] Feb, [facility] [place] [facility] [address] [id number] [place] [address] Feb, [facility] [place] [facility] [address] [id number] [place] [address] January, [facility] [place] [facility] [address] [id number] [place] [address] January, [facility] [place] [facility] [address] [id number] [place] [address] January, [facility] [place] [facility] [address] [id number] [place] [address] January, [facility] [place] [facility] [address] [id number] [place] [address] Dec, [facility] [place] [facility] [address] [id number] [place] [address] Dec, [facility] [place] [facility] [address] [id number] [place] [address] Nov, [facility] [place] [facility] [address] [id number] [place] [address] Nov, [facility] [place] [facility] [address] [id number] [place] [address] Nov, [facility] [place] [facility] [address] [id number] [place] [address] Nov, [facility] [place] [facility] [address] [id number] [place] [address] Oct, [facility] [place] [facility] [address] [id number] [place] [address] Oct, [facility] [place] [facility] [address] [id number] [place] [address] Oct, [facility] [place] [facility] [address] [id number] [place] [address] Oct, [facility] [place] [facility] [address] [id number] [place] [address] Oct, [facility] [place] [facility] [address] [id number] [place] [address] Sep, [facility] [place] [facility] [address] [id number] [place] [address] Sep, [facility] [place] [facility] [id number] [place] [address] Sep, [facility] [place] [facility] [address] [id number] [place] [address] Sep, [facility] [place] [facility] [address] [id number] [place] [address] Aug, [facility] [place] [facility] [address] [id number] [place] [address] Aug, [facility] [place] [facility] [id number] [place] [address] Aug, [facility] [place] [facility] [address] [id number] [place] [address] Aug, [facility] [place] [facility] [address] [id number] [place] [address] Jul, [facility] [place] [facility] [id number] [place] [address] Jul, [facility] [place] [facility] [id number] [place] [address] Jul, [facility] [place] [facility] [address] [id number] [place] [address] Jul, [facility] [place] [facility] [address] [id number] [place] [address] Jul, [facility] [place] [facility] [id number] [place] [address] Jul, [facility] [place] [facility] [address] [id number] [place] [address] May, [facility] [place] [facility] [id number] [place] [address] May, [facility] [place] [facility] [address] [facility] [id number] [facility] [place] [address] May, [facility] [place] [facility] [address] [facility] [id number] [facility] [place] [address] May, [facility] [place] [facility] [address] [facility] [id number] [place] [address] Apr, [facility] [place] [facility] [address] [facility] [id number] [facility] [place] [address] Apr, [facility] [place] [facility] [address] [facility] [id number] [facility] [place] [address] Apr, [facility] [place] [facility] [address] [facility] [id number] [facility] [place] [address] Apr, [facility] [place] [facility] [address] [id number] [place] [address] Mar, [facility] [place] [facility] [address] [id number] [place] [address] Mar, [facility] [place] [facility] [address] [facility] [id number] [place] [address] Mar, [facility] [place] [facility] [address] [id number] [place] [address] Mar, [facility] [place] [facility] [address] [id number] [place] [address] Feb, [facility] [place] [facility] [address] [id number] [place] [address] Feb, [facility] [place] [facility] [address] [facility] [id number] [place] [address] Feb, [facility] [place] [facility] [address] [facility] [id number] [place] [address] Feb, [facility] [place] [facility] [address] [facility] [id number] [place] [address] Feb, [facility] [place] [facility] [address] [id number] [place] [address] Feb, [facility] [place] [facility] [address] [id number] [place] [address] January, [facility] [place] [facility] [address] [id number] [place] [address] January, [facility] [place] [facility] [address] [id number] [place] [address] January, [facility] [place] [facility] [address] [id number] [place] [address] January, [facility] [place] [facility] [address] [id number] [place] [address] January, [facility] [place] [facility] [address] [id number] [place] [address] January, [facility] [place] [facility] [address] [id number] [place] [address] January, [facility] [place] [facility] [address] [id number] [place] [address] January, [facility] [place] [facility] [address] [id number] [place] [address] Dec, [facility] [place] [facility] [address] [id number] [place] [address] Dec, [facility] [place] [facility] [address] [id number] [place] [address] Dec, [facility] [place] [facility] [address] [id number] [place] [address] Dec, [facility] [place] [facility] [address] [id number] [place] [address] Dec, [facility] [place] [facility] [address] [id number] [place] [address] Dec, [facility] [place] [facility] [address] [id number] [place] [address] Dec, [facility] [place] [facility] [address] [id number] [place] [address] Dec, [facility] [place] [facility] [address] [id number] [place] [address] Dec, [facility] [place] [facility] [address] [id number] [place] [address] Dec, [facility] [place] [facility] [address] [id number] [place] [address] Nov, [facility] [place] [facility] [address] [id number] [place] [address] Nov, [facility] [place] [facility] [address] [id number] [place] [address] Nov, [facility] [place] [facility] [address] [id number] [place] [address] Nov, [facility] [place] [facility] [address] [id number] [place] [address] Oct, [facility] [place] [facility] [address] [id number] [place] [address] Oct, [facility] [place] [facility] [address] [id number] [place] [address] Oct, [facility] [place] [facility] [address] [id number] [place] [address] Oct, [facility] [place] [facility] [address] [id number] [place] [address] Oct, [facility] [place] [facility] [address] [id number] [place] [address] Oct, [facility] [place] [facility] [address] [id number] [place] [address] Sep, [facility] [place] [facility] [address] [id number] [place] [address] Sep, [facility] [place] [facility] [address] [id number] [place] [address] Sep, [facility] [place] [facility] [address] [id number] [place] [address] Sep, [facility] [place] [facility] [address] [id number] [place] [address] Sep, [facility] [place] [facility] [address] [id number] [place] [address] Sep, [facility] [place] [facility] [address] [facility] [id number] [place] [address] Sep, [facility] [place] [facility] [address] [id number] [place] [address] Sep, [facility] [place] [facility] [address] [id number] [place] [address] Aug, [facility] [place] [facility] [address] [id number] [place] [address] Aug, [facility] [place] [facility] [address] [id number] [place] [address] Aug, [facility] [place] [facility] [address] [id number] [place] [address] Aug, [facility] [place] [facility] [address] [id number] [place] [address] Aug, [facility] [place] [facility] [address] [id number] [place] [address] Aug, [facility] [place] [facility] [address] [id number] [place] [address] Aug, [facility] [place] [facility] [address] [id number] [place] [address] Aug, [facility] [place] [facility] [address] [id number] [place] [address] 15 Jul, 2013 [facility] [place] [facility] [address] [id number] [place] [address] Jul, [facility] [place] [facility] [address] [id number] [place] [address] Jul, [facility] [place] [facility] [address] [id number] [place] [address] Jul, [facility] [place] [facility] [address] [id number] [place] [address] 08 Jul, 2013 [facility] [place] [facility] [address] [id number] [place] [address] Jul, [facility] [place] [facility] [address] [id number] [place] [address] 07 Jul, 2012 [facility] [place] [facility] [address] [id number] [place] [address] Jul, 2012 [facility] [place] [facility] [address] [id number] [place] [address] Jul, 2012 [facility] [place] [facility] [address] [id number] [place] [address] Jul, 2012 [facility] [place] [facility] [address] [id number] [place] [address] Jul, 2012 [facility] [place] [facility] [address] [id number] [place] [address] Jul, 2012 [facility] [place] [facility] [address] [id number] [place] [address] Jul, 2012 [facility] [place] [facility] [address] [id number] [place] [address] Jul, 2012 [facility] [place] [facility] [address] [id number] [place] [address] Jul, 2012 [facility] [place] [facility] [address] [id number] [place] [address] Jul, [facility] [place] [facility] [address] [id number] [place] [address] Jul, [facility] [place] [facility] [address] [id number] [place] [address] Jul, [facility] [place] [facility] [address] [id number] [place] [address] Jul, [facility] [place] [facility] [address] [id number] [place] [address] Jul, [facility] [place] [facility] [address] [id number] [place] [address] Jun, [facility] [place] [facility] [address] [id number] [place] [address] 30 May, 2013 [facility] [place] [facility] [address] [id number] [place] [address] May, [facility] [address] [id number] [place] [address] Apr, [facility] [place] [facility] [address] [id number] [place] [address] Apr, [facility] [place] [facility] [address] [id number] [place] [address] Apr, [facility] [place] [facility] [address] [id number] [place] [address] Mar, [facility] [place] [facility] [address] [facility] [id number] [place] [address] Mar, [facility] [place] [facility] [address] [id number] [place] [address] Mar, [facility] [place] [facility] [address] [id number] [place] [address] Mar, [facility] [place] [facility] [address] [id number] [place] [address] Mar, [facility] [address] [id number] [place] [address] Mar, [facility] [address] [id number] [place] [address] Feb, [facility] [address] [id number] [place] [address] Feb, [facility] [address] [id number] [place] [address] Feb, [facility] [address] [id number] [place] [address] Feb, [facility] [address] [id number] [place] [address] January, [facility] [address] [id number] [place] [address] January, [facility] [address] [id number] [place] [address] Dec, [facility] [address] [id number] [place] [address] Nov, [facility] [address] [id number] [place] [address] Oct, [facility] [address] [id number] [place] [address] 15 Oct, 2012 [facility] [address] [id number] [place] [address] 14 Oct, 2012 [facility] [address] [id number] [place] [address] Oct, [facility] [address] [id number] [place] [address] Oct, [facility] [address] [id number] [place] [address] Oct, [facility] [address] [id number] [place] [address] Oct, [facility] [address] [id number] [place] [address] Sep, [facility] [address] [id number] [place] [address] Sep, [facility] [address] [id number] [place] [address] Aug, [facility] [address] [id number] [place] [address] Aug, [facility] [address] [id number] [place] [address] Jul, [facility] [address] [id number] [place] [address] Jul, [facility] [id number] [place] [address] Jun, [facility] [address] [id number] [place] [address] Jun, [facility] [address] [id number] [place] [address] Jun, [facility] [address] [facility] [id number] [place] [address] Jun, 2011 [facility] [address] [id number] [place] [address] Jun, [facility] [address] [id number] [place] [address] Jun, [facility] [address] [id number] [place] [address] Jun, [facility] [address] [id number] [place] [address] Jun, [facility] [address] [id number] [place] [address] Jun, [facility] [address] [id number] [place] [address] 30 May, 2011 [facility] [address] [id number] [place] [address] 25 May, 2011 [facility] [address] [id number] [place] [address] 20 May, 2011 [facility] [address] [id number] [place] [address] 18 May, 2012 [facility] [address] [id number] [place] [address] 06 May, 2011 [facility] [address] [id number] [place] [address] 05 May, 2011 [facility] [address] [id number] [place] [address] Apr, [facility] [address] [id number] [place] [address] Mar, [facility] [address] [id number] [place] [address] Mar, [facility] [address] [id number] [place] [address] Mar, [facility] [address] [id number] [place] [address] Mar, [facility] [address] [id number] [place] [address] Mar, [facility] [address] [id number] [place] [address] Mar, [facility] [address] [id number] [place] [address] Mar, [facility] [address] [address] [id number] [place] [address] Mar[facility] [address] [id number] [place] [address] Feb, [facility] [address] [id number] [place] [address] Feb, [facility] [address] [id number] [place] [address] Feb, [facility] [address] [id number] [place] [address] January, [facility] [address] [id number] [place] [address] January, [facility] [address] [id number] [place] [address] January, [facility] [address] [id number] [place] [address] Dec, [facility] [address] [id number] [place] [address] Nov, [facility] [address] [id number] [place] [address] Nov, [facility] [address] [id number] [place] [address] Nov, [facility] [address] [id number] [place] [address] Nov, [facility] [address] [id number] [place] [address] Oct, [facility] [address] [id number] [place] [address] 08 Oct, 2011 [facility] [address] [id number] [place] [address] Oct, [facility] [address] [id number] [place] [address] Oct, [facility] [address] [id number] [place] [address] Oct, [facility] [address] [id number] [place] [address] Oct, [facility] [address] [id number] [place] [address] Oct, [facility] [address] [id number] [place] [address] Sep, [facility] [address] [id number] [place] [address] Sep, [facility] [address] [id number] [place] [address] Sep, [facility] [address] [id number] [place] [address] Sep, [facility] [address] [id number] [place] [address] Sep, [facility] [address] [id number] [place] [address] Sep, [facility] [address] [id number] [place] [address] Sep, [facility] [address] [id number] [place] [address] Aug, [facility] [address] [id number] [place] [address] Aug, [facility] [address] [id number] [place] [address] Jul, [facility] [address] [id number] [place] [address] 07 Jul, 2011 [facility] [address] [id number] [place] [address] Jul, [facility] [address] [id number] [place] [address] 24 Jun, 2011 [facility] [address] [id number] [place] [address] 14 Nov, 2010 [facility] [address] [id number] [place] [address] Aug, [facility] [address] [id number] [place] [address] Aug, [facility] [address] [id number] [place] [address] Aug, [facility] [address] [id number] [place] [address] Jul, [facility] [address] [id number] [place] [address] Jul, [facility] [address] [id number] [place] [address] Jun, [facility] [address] [id number] [place] [address] Jun, [facility] [address] [id number] [place] [address] Aug, [facility] [address] [id number] [place] [address] Aug, [facility] [address] [id number] [place] [address] Aug, [facility] [address] [id number] [place] [address] 30 Jul, 2009 [facility] [address] [id number] [place] [address] Jul, [facility] [address] [id number] [place] [address] Jul, [facility] [address] [id number] [place] [address] 27 Jun, 2009 [facility] [address] [id number] [place] [address] Jun, [facility] [address] [id number] [place] [address] Jun, IMMUNIZATIONS No Known Immunizations SOCIAL HISTORY [...]
--- OUTSIDE RECORDS SUMMARY | 2019-12-22 20:33 | XMS REPORT ---
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 Name Role Phone MELISSABRENNENA Unavailable PROBLEMS Type Condition ICD9-CM Code VLG64-OQ Code Onset Dates Condition S tatus SNOMED Code Problem Cough R05 Active 68446856 Problem Hypertension I10 Active 1092340 3 Problem PAD (peripheral artery disease) I73.9 Active 312783038 Problem Mixed hyperlipidemia E78.2 Active 764358394 Problem Atrial fibrillation, unspecified type I48.91 Active 01608019 Problem GERD (gastroesophageal reflux disease) K21.9 Active 974499121 Problem RLS (restless legs syndrome) G25.81 A ctive 10822011 Problem Venous insufficiency I87.2 Active 19065799 Problem Dorsalgia, unspecified M54.9 Active 729925513 Problem OAB (overactive bladder) N32.81 Activ e [id number] ALLERGIES No Information ENCOUNTERS Encounter Location Date Diagnosis Via [facility] [address] [place] [id number] Oct, Hypertension I10 ; Venous insufficiency I87.2 ; RLS (restless legs syndrome) G25.81 ; OAB (overactive bladder) N32.81 ; PAD (peripheral artery disease) I73.9 ; Chronic atrial fibrillation I48.20 and Weakness R53.1 [place] [id number] [place] [address] Aug, Hypertension I10 [place] [address] [address] Jul, [place] [address] [address] Jul, [place] [address] [address] May, [address] [place] [address] Apr, [place] [address] [address] Apr, RLS (restless legs syndrome) G25.81 and Urinary tract infection without hematuria, site unspecified N39.0 [place] [address] [address] Mar, Urinary tract infection without hematuri a, site unspecified N39.0 [facility] [employer] [facility] [address] [place] [id number] Mar, Dysuria R30.0 [address] [place] [address] Feb, [place] [address] [address] Feb, Venous insufficiency I87.2 [place] [address] [address] January, Left hip pain M25.552 [place] [address] [address] Dec, [place] [address] [address] Nov, [facility] [employer] [facility] [address] [place] [id number] Nov, Encounter for Medicare annual wellness e xam Z00.00 ; Hypertension I10 ; UTI (urinary tract infection) N39.0 ; Venous insufficiency I87.2 ; OAB (overactive bladder) N32.81 ; GERD (gastroesophageal reflux disease) K21.9 and Mixed hyperlipidemia E78.2 [place] [address] [address] Nov, Via [employer] [address] [place] [id number] Jul, Hypertension I10 ; Gastroesophageal refl ux disease without esophagitis K21.9 and PAD (peripheral artery disease) I73.9 [place] [id number] [place] [address] May, [facility] [employer] [facility] [address] [place] [id number] Mar, Hypertension I10 [place] [address] [address] Dec, [place] [address] [address] Dec, [facility] [email or web address] [address] [place] [id number] Dec, Bronchitis J40 Via [facility] [email or web address] [address] [place] [id number] Oct, Hypertension I10 [place] [id number] [place] [id number] Aug, [facility] [email or web address] [address] [place] [id number] Jul, Cough R05 [place] [address] [address] Jul, [place] [address] [address] Jul, Via [facility] [employer] [address] [place] [id number] Jun, Hypertension I10 ; Gastroesophageal refl ux disease without esophagitis K21.9 ; Venous insufficiency I87.2 and OAB (overactive bladder) N32.81 [facility] [employer] [address] [place] [id number] Apr, Hypertension I10 and Venous insufficienc y I87.2 [place] [address] [id number] [place] [id number] Apr, Encounter for other screening for malign ant neoplasm of breast Z12.39 [place] [address] [address] Mar, [place] [address] [place] [address] Feb, [facility] [id number] [place] [address] Feb, [facility] [id number] [place] [address] January, UTI (urinary tract infection) N39.0 [facility] [address] [address] January, UTI (urinary tract infection) N39.0 [facility] [id number] [place] [address] January, [facility] [address] [address] Dec, Bronchitis J40 [facility] [employer] [facility] [address] [place] [id number] Dec, Bronchitis J40 [facility] [address] [id number] [place] [id number] Nov, [facility] [address] [id number] [place] [facility] [place] [id number] Nov, [facility] [employer] [facility] [address] [place] [id number] Nov, OAB (overactive bladder) N32.81 ; Dysuri a R30.0 ; Hypertension I10 and Mixed hyperlipidemia E78.2 [facility] [id number] [place] [address] Oct, [facility] [address] [address] Sep, [facility] [address] [address] Sep, [facility] [employer] [address] [place] [id number] Aug, Hypertension I10 ; Mixed hyperlipidemia E78.2 and OAB (overactive bladder) N32.81 [facility] [address] [address] Aug, [facility] [id number] [place] [address] Aug, [facility] [address] [address] Aug, [facility] [address] [address] Jun, [facility] [address] [address] Jun, [facility] [address] [address] Jun, [facility] [address] [address] Jun, [facility] [address] [address] May, [facility] [address] [address] Apr, Encounter for other screening for malign ant neoplasm of breast Z12.39 [facility] [address] [address] Apr, Encounter for other screening for malign ant neoplasm of breast Z12.39 [facility] [address] [address] Mar, Hypertension I10 ; Acute cystitis withou t hematuria N30.00 ; Venous insufficiency I87.2 ; RLS (restless legs syndrome) G25.81 ; Dorsalgia, unspecified M54.9 and Other chronic pain G89.29 [facility] [id number] [place] [address] Feb, [facility] [address] [address] January, [facility] [address] [address] January, [facility] [address] [address] Oct, [facility] [id number] [place] [address] Aug, Dysuria R30.0 [facility] [id number] [place] [address] Aug, [facility] [address] [address] Aug, [facility] [address] [address] Jul, Hypertension I10 ; UTI (urinary tract in fection) N39.0 ; GERD (gastroesophageal reflux disease) K21.9 and PAD (peripheral artery disease) I73.9 [facility] [address] [address] Jun, [facility] [address] [address] Jun, [facility] [address] [address] Jun, [facility] [address] [address] May, [facility] [address] [address] Apr, [facility] [address] [address] Apr, [facility] [address] [address] Apr, Breast cancer screening V76.10 [facility] [address] [address] Apr, [facility] [address] [address] Mar, [facility] [address] [address] Mar, [facility] [address] [address] Mar, [facility] [place] [facility] [address] [id number] [place] [address] Feb, [facility] [place] [facility] [address] [id number] [place] [address] Feb, [facility] [place] [facility] [address] [id number] [place] [address] January, [facility] [place] [facility] [address] [id number] [place] [address] January, [facility] [place] [facility] [address] [id number] [place] [address] January, [facility] [place] [facility] [address] [id number] [place] [address] January, [facility] [place] [facility] [address] [id number] [place] [address] Dec, [facility] [place] [facility] [address] [id number] [place] [address] Dec, [facility] [place] [facility] [address] [id number] [place] [address] Nov, [facility] [place] [facility] [address] [id number] [place] [address] Nov, [facility] [place] [facility] [address] [id number] [place] [address] Nov, [facility] [place] [facility] [address] [id number] [place] [address] Nov, [facility] [place] [facility] [address] [id number] [place] [address] Oct, [facility] [place] [facility] [address] [id number] [place] [address] Oct, [facility] [place] [facility] [address] [id number] [place] [address] Oct, [facility] [place] [facility] [address] [id number] [place] [address] Oct, [facility] [place] [facility] [address] [id number] [place] [address] Oct, [facility] [place] [facility] [address] [id number] [place] [address] Sep, [facility] [place] [facility] [address] [id number] [place] [address] Sep, [facility] [place] [facility] [id number] [place] [address] Sep, [facility] [place] [facility] [address] [id number] [place] [address] Sep, [facility] [place] [facility] [address] [id number] [place] [address] Aug, [facility] [place] [facility] [address] [id number] [place] [address] Aug, [facility] [place] [facility] [id number] [place] [address] Aug, [facility] [place] [facility] [address] [id number] [place] [address] Aug, [facility] [place] [facility] [address] [id number] [place] [address] Jul, [facility] [place] [facility] [id number] [place] [address] Jul, [facility] [place] [facility] [id number] [place] [address] Jul, [facility] [place] [facility] [address] [id number] [place] [address] Jul, [facility] [place] [facility] [address] [id number] [place] [address] Jul, [facility] [place] [facility] [id number] [place] [address] Jul, [facility] [place] [facility] [address] [id number] [place] [address] May, [facility] [place] [facility] [id number] [place] [address] May, [facility] [place] [facility] [address] [facility] [id number] [place] [address] May, [facility] [place] [facility] [address] [facility] [id number] [place] [address] May, [facility] [place] [facility] [address] [facility] [id number] [place] [address] Apr, [facility] [place] [facility] [address] [facility] [id number] [place] [address] Apr, [facility] [place] [facility] [address] [facility] [id number] [place] [address] Apr, [facility] [place] [facility] [address] [facility] [id number] [place] [address] Apr, [facility] [place] [facility] [address] [id number] [place] [address] Mar, [facility] [place] [facility] [address] [id number] [place] [address] Mar, [facility] [place] [facility] [address] [facility] [id number] [place] [address] Mar, [facility] [place] [facility] [address] [id number] [place] [address] Mar, [facility] [place] [facility] [address] [id number] [place] [address] Feb, [facility] [place] [facility] [address] [id number] [place] [address] Feb, [facility] [place] [facility] [address] [facility] [id number] [place] [address] Feb, [facility] [place] [facility] [address] [facility] [id number] [place] [address] Feb, [facility] [place] [facility] [address] [facility] [id number] [place] [address] Feb, [facility] [place] [facility] [address] [id number] [place] [address] Feb, [facility] [place] [facility] [address] [id number] [place] [address] January, [facility] [place] [facility] [address] [id number] [place] [address] January, [facility] [place] [facility] [address] [id number] [place] [address] January, [facility] [place] [facility] [address] [id number] [place] [address] January, [facility] [place] [facility] [address] [id number] [place] [address] January, [facility] [place] [facility] [address] [id number] [place] [address] January, [facility] [place] [facility] [address] [id number] [place] [address] January, [facility] [place] [facility] [address] [id number] [place] [address] January, [facility] [place] [facility] [address] [id number] [place] [address] Dec, [facility] [place] [facility] [address] [id number] [place] [address] Dec, [facility] [place] [facility] [address] [id number] [place] [address] Dec, [facility] [place] [facility] [address] [id number] [place] [address] Dec, [facility] [place] [facility] [address] [id number] [place] [address] Dec, [facility] [place] [facility] [address] [id number] [place] [address] Dec, [facility] [place] [facility] [address] [id number] [place] [address] Dec, [facility] [place] [facility] [address] [id number] [place] [address] Dec, [facility] [place] [facility] [address] [id number] [place] [address] Dec, [facility] [place] [facility] [address] [id number] [place] [address] Dec, [facility] [place] [facility] [address] [id number] [place] [address] Nov, [facility] [place] [facility] [address] [id number] [place] [address] Nov, [facility] [place] [facility] [address] [id number] [place] [address] Nov, [facility] [place] [facility] [address] [id number] [place] [address] Nov, [facility] [place] [facility] [address] [id number] [place] [address] Oct, [facility] [place] [facility] [address] [id number] [place] [address] Oct, [facility] [place] [facility] [address] [id number] [place] [address] Oct, [facility] [place] [facility] [address] [id number] [place] [address] Oct, [facility] [place] [facility] [address] [id number] [place] [address] Oct, [facility] [place] [facility] [address] [id number] [place] [address] Oct, [facility] [place] [facility] [address] [id number] [place] [address] Sep, [facility] [place] [facility] [address] [id number] [place] [address] Sep, [facility] [place] [facility] [address] [id number] [place] [address] Sep, [facility] [place] [facility] [address] [id number] [place] [address] Sep, [facility] [place] [facility] [address] [id number] [place] [address] Sep, [facility] [place] [facility] [address] [id number] [place] [address] Sep, [facility] [place] [facility] [address] [facility] [id number] [place] [address] Sep, [facility] [place] [facility] [address] [id number] [place] [address] Sep, [facility] [place] [facility] [address] [id number] [place] [address] Aug, [facility] [place] [facility] [address] [id number] [place] [address] Aug, [facility] [place] [facility] [address] [id number] [place] [address] Aug, [facility] [place] [facility] [address] [id number] [place] [address] Aug, [facility] [place] [facility] [address] [id number] [place] [address] Aug, [facility] [place] [facility] [address] [id number] [place] [address] Aug, [facility] [place] [facility] [address] [id number] [place] [address] Aug, [facility] [place] [facility] [address] [id number] [place] [address] Aug, [facility] [place] [facility] [address] [id number] [place] [address] 15 Jul, 2013 [facility] [place] [facility] [address] [id number] [place] [address] Jul, [facility] [place] [facility] [address] [id number] [place] [address] Jul, [facility] [place] [facility] [address] [id number] [place] [address] Jul, [facility] [place] [facility] [address] [id number] [place] [address] 08 Jul, 2013 [facility] [place] [facility] [address] [id number] [place] [address] Jul, [facility] [place] [facility] [address] [id number] [place] [address] 07 Jul, 2012 [facility] [place] [facility] [address] [id number] [place] [address] Jul, 2012 [facility] [place] [facility] [address] [id number] [place] [address] Jul, 2012 [facility] [place] [facility] [address] [id number] [place] [address] Jul, 2012 [facility] [place] [facility] [address] [id number] [place] [address] Jul, 2012 [facility] [place] [facility] [address] [id number] [place] [address] Jul, 2012 [facility] [place] [facility] [address] [id number] [place] [address] Jul, 2012 [facility] [place] [facility] [address] [id number] [place] [address] Jul, 2012 [facility] [place] [facility] [address] [id number] [place] [address] Jul, 2012 [facility] [place] [facility] [address] [id number] [place] [address] Jul, [facility] [place] [facility] [address] [id number] [place] [address] Jul, [facility] [place] [facility] [address] [id number] [place] [address] Jul, [facility] [address] [id number] [place] [address] Jul, [facility] [address] [id number] [place] [address] Jul, [facility] [address] [id number] [place] [address] Jun, [facility] [address] [id number] [place] [address] 30 May, 2013 [facility] [address] [id number] [place] [address] May, [facility] [address] [id number] [place] [address] Apr, [facility] [address] [id number] [place] [address] Apr, [facility] [address] [id number] [place] [address] Apr, [facility] [address] [id number] [place] [address] Mar, [facility] [address] [facility] [id number] [place] [address] Mar, [facility] [address] [id number] [place] [address] Mar, [facility] [address] [id number] [place] [address] Mar, [facility] [address] [id number] [place] [address] Mar, [facility] [address] [id number] [place] [address] Mar, [facility] [address] [id number] [place] [address] Feb, [facility] [address] [id number] [place] [address] Feb, [facility] [address] [id number] [place] [address] Feb, [facility] [address] [id number] [place] [address] Feb, [facility] [address] [id number] [place] [address] January, [facility] [address] [id number] [place] [address] January, [facility] [address] [id number] [place] [address] Dec, [facility] [address] [id number] [place] [address] Nov, [facility] [address] [id number] [place] [address] Oct, [facility] [address] [id number] [place] [address] 15 Oct, 2012 [facility] [address] [id number] [place] [address] 14 Oct, 2012 [facility] [address] [id number] [place] [address] Oct, [facility] [address] [id number] [place] [address] Oct, [facility] [address] [id number] [place] [address] Oct, [facility] [address] [id number] [place] [address] Oct, [facility] [address] [id number] [place] [address] Sep, [facility] [address] [id number] [place] [address] Sep, [facility] [address] [id number] [place] [address] Aug, [facility] [address] [id number] [place] [address] Aug, [facility] [address] [id number] [place] [address] Jul, [facility] [address] [id number] [place] [address] Jul, [facility] [id number] [place] [address] Jun, [facility] [address] [id number] [place] [address] Jun, [facility] [address] [id number] [place] [address] Jun, [facility] [address] [facility] [id number] [place] [address] Jun, 2011 [facility] [address] [id number] [place] [address] Jun, [facility] [address] [id number] [place] [address] Jun, [facility] [address] [id number] [place] [address] Jun, [facility] [address] [facility] [id number] [place] [address] Jun, [facility] [address] [id number] [place] [address] Jun, [facility] [address] [id number] [place] [address] 30 May, 2011 [facility] [address] [id number] [place] [address] 25 May, 2011 [facility] [address] [id number] [place] [address] 20 May, 2011 [facility] [address] [id number] [place] [address] 18 May, 2012 [facility] [address] [id number] [place] [address] 06 May, 2011 [facility] [address] [id number] [place] [address] 05 May, 2011 [facility] [address] [id number] [place] [address] Apr, [facility] [address] [id number] [place] [address] Mar, [facility] [address] [id number] [place] [address] Mar, [facility] [address] [id number] [place] [address] Mar, [facility] [address] [id number] [place] [address] Mar, [facility] [address] [id number] [place] [address] Mar, [facility] [address] [id number] [place] [address] Mar, [facility] [address] [id number] [place] [address] Mar, [facility] [address] [id number] [place] [address] Mar, [facility] [address] [id number] [place] [address] Feb, [facility] [address] [id number] [place] [address] Feb, [facility] [address] [id number] [place] [address] Feb, [facility] [address] [id number] [place] [address] January, [facility] [address] [id number] [place] [address] January, [facility] [address] [id number] [place] [address] January, [facility] [address] [id number] [place] [address] Dec, [facility] [address] [id number] [place] [address] Nov, [facility] [address] [id number] [place] [address] Nov, [facility] [address] [id number] [place] [address] Nov, [facility] [address] [id number] [place] [address] Nov, [facility] [address] [id number] [place] [address] Oct, [facility] [address] [id number] [place] [address] 08 Oct, 2011 [facility] [address] [id number] [place] [address] Oct, [facility] [address] [id number] [place] [address] Oct, [facility] [address] [id number] [place] [address] Oct, [facility] [address] [id number] [place] [address] Oct, [facility] [address] [id number] [place] [address] Oct, [facility] [address] [id number] [place] [address] Sep, [facility] [address] [id number] [place] [address] Sep, [facility] [address] [id number] [place] [address] Sep, [facility] [address] [id number] [place] [address] Sep, [facility] [address] [id number] [place] [address] Sep, [facility] [address] [id number] [place] [address] Sep, [facility] [address] [id number] [place] [address] Sep, [facility] [address] [id number] [place] [address] Aug, [facility] [address] [id number] [place] [address] Aug, [facility] [address] [id number] [place] [address] Jul, [facility] [address] [id number] [place] [address] 07 Jul, 2011 [facility] [address] [id number] [place] [address] Jul, [facility] [address] [id number] [place] [address] 24 Jun, 2011 [facility] [address] [id number] [place] [address] 14 Nov, 2010 [facility] [address] [id number] [place] [address] Aug, [facility] [address] [id number] [place] [address] Aug, [facility] [address] [id number] [place] [address] Aug, [facility] [address] [id number] [place] [address] Jul, [facility] [address] [id number] [place] [address] Jul, [facility] [address] [id number] [place] [address] Jun, [facility] [address] [id number] [place] [address] Jun, [facility] [address] [id number] [place] [address] Aug, [facility] [address] [id number] [place] [address] Aug, [facility] [address] [id number] [place] [address] Aug, [facility] [address] [id number] [place] [address] 30 Jul, 2009 [facility] [address] [id number] [place] [address] Jul, [facility] [address] [id number] [place] [address] Jul, [facility] [address] [id number] [place] [address] 27 Jun, 2009 [facility] [address] [id number] [place] [address] Jun, [facility] [address] [id number] [place] [address] Jun, IMMUNIZATIONS No Known Immunizations SOCIAL HISTORY [...]
--- OUTSIDE RECORDS SUMMARY | 2019-12-22 20:34 | XMS REPORT ---
Author Author Madelyn TORRES [facility] Address [address] [place] [address] Care Team Providers Care Install Technician Name Role Phone LAKSHMI TORRES Unavailable PROBLEMS Type Condition ICD9-CM Code LVI37-UQ Code Onset Dates Condition S tatus SNOMED Code Problem Cough R05 Active 14384345 Problem Hypertension I10 Active 1564719 3 Problem PAD (peripheral artery disease) I73.9 Active 437239563 Problem Mixed hyperlipidemia E78.2 Active 073830661 Problem GERD (gastroesophageal reflux disease) K21.9 Active 277849105 Problem RLS (restless legs syndrome) G25.81 A ctive 13338718 Problem Venous insufficiency I87.2 Active 41254252 Problem Dorsalgia, unspecified M54.9 Active 782781364 Problem OAB (overactive bladder) N32.81 Activ e [id number] ALLERGIES No Information ENCOUNTERS Encounter Location Date Diagnosis [place] [address] [address] Aug, Hypertension I10 [place] [address] [address] Jul, [place] [address] [address] Jul, [facility] [address] [address] May, [place] [address] [place] [address] Apr, [facility] [address] [address] Apr, RLS (restless legs syndrome) G25.81 and Urinary tract infection without hematuria, site unspecified N39.0 [place] [address] [address] Mar, Urinary tract infection without hematuri a, site unspecified N39.0 Via [facility] [address] [place] [id number] Mar, Dysuria R30.[address] [place] [address] Feb, [place] [address] [address] Feb, Venous insufficiency I87.2 [place] [address] [address] January, Left hip pain M25.552 [place] [address] [address] Dec, [place] [address] [address] Nov, Via [facility] [address] [place] [id number] Nov, Encounter for Medicare annual wellness e xam Z00.00 ; Hypertension I10 ; UTI (urinary tract infection) N39.0 ; Venous insufficiency I87.2 ; OAB (overactive bladder) N32.81 ; GERD (gastroesophageal reflux disease) K21.9 and Mixed hyperlipidemia E78.[address] [address] Nov, Via [facility] [address] [place] [id number] Jul, Hypertension I10 ; Gastroesophageal refl ux disease without esophagitis K21.9 and PAD (peripheral artery disease) I73.9 [place] [address] [address] May, Via [email or web address] [address] [place] [id number] Mar, Hypertension I10 [place] [address] [address] Dec, [place] [address] [id number] [place] [address] Dec, [facility] [address] [place] [id number] Dec, Bronchitis J40 Via [facility] [address] [place] [id number] Oct, Hypertension I10 [place] [address] [id number] [place] [id number] Aug, [facility] [address] [place] [id number] Jul, Cough R05 [place] [address] [address] Jul, [place] [address] [address] Jul, Via [facility] [address] [place] [id number] Jun, Hypertension I10 ; Gastroesophageal refl ux disease without esophagitis K21.9 ; Venous insufficiency I87.2 and OAB (overactive bladder) N32.81 [facility] [address] [place] [id number] Apr, Hypertension I10 and Venous insufficienc y I87.2 [place] [address] [id number] [place] [id number] Apr, Encounter for other screening for malign ant neoplasm of breast Z12.39 [place] [address] [place] [id number] [place] [address] Mar, [place] [address] [address] Feb, [place] [address] [address] Feb, [place] [address] [address] January, UTI (urinary tract infection) N39.0 [place] [address] [address] January, UTI (urinary tract infection) N39.0 [facility] [address] [place] [id number] [place] [address] January, [facility] [address] [address] Dec, Bronchitis J40 Via [facility] [address] [place] [id number] Dec, Bronchitis J40 [facility] [address] [id number] [id number] Nov, [facility] [address] [id number] [place] [id number] Nov, Via [facility] [address] [place] [id number] Nov, OAB (overactive bladder) N32.81 ; Dysuri a R30.0 ; Hypertension I10 and Mixed hyperlipidemia E78.2 [facility] [address] [place] [id number] [place] [address] Oct, [facility] [address] [address] Sep, [facility] [address] [address] Sep, Via [facility] [facility] [address] [place] [id number] Aug, Hypertension I10 ; Mixed hyperlipidemia E78.2 and OAB (overactive bladder) N32.81 [facility] [address] [place] [id number] [place] [address] Aug, [facility] [address] [address] Aug, [facility] [address] [address] Aug, [facility] [address] [address] Jun, [facility] [address] [address] Jun, [facility] [address] [address] Jun, [facility] [address] [address] Jun, [facility] [address] [address] May, [facility] [address] [address] Apr, Encounter for other screening for malign ant neoplasm of breast Z12.39 [facility] [address] [address] Apr, Encounter for other screening for malign ant neoplasm of breast Z12.39 [facility] [address] [address] Mar, Hypertension I10 ; Acute cystitis withou t hematuria N30.00 ; Venous insufficiency I87.2 ; RLS (restless legs syndrome) G25.81 ; Dorsalgia, unspecified M54.9 and Other chronic pain G89.29 [facility] [address] [address] Feb, [facility] [address] [address] January, [facility] [address] [address] January, [facility] [address] [address] Oct, [facility] [address] [address] Aug, Dysuria R30.0 [facility] [address] [address] Aug, [facility] [address] [address] Aug, [facility] [address] [id number] [place] [address] Jul, Hypertension I10 ; UTI (urinary tract in fection) N39.0 ; GERD (gastroesophageal reflux disease) K21.9 and PAD (peripheral artery disease) I73.9 [facility] [address] [place] [id number] [place] [address] Jun, [facility] [address] [place] [id number] [place] [address] Jun, [facility] [address] [place] [id number] [place] [address] Jun, [facility] [address] [place] [id number] [place] [address] May, [facility] [address] [place] [id number] [place] [address] Apr, [facility] [address] [place] [id number] [place] [address] Apr, [facility] [address] [place] [id number] [place] [address] Apr, Breast cancer screening V76.10 [facility] [address] [place] [id number] [place] [address] Apr, [facility] [address] [place] [id number] [place] [address] Mar, [facility] [address] [place] [id number] [place] [address] Mar, [facility] [address] [place] [id number] [place] [address] Mar, [facility] [address] [place] [id number] [place] [address] Feb, [facility] [address] [place] [id number] [place] [address] Feb, [facility] [address] [place] [id number] [place] [address] January, [facility] [address] [id number] [place] [address] January, [facility] [address] [id number] [place] [address] January, [facility] [address] [id number] [place] [address] January, [facility] [address] [id number] [place] [address] Dec, [facility] [address] [id number] [place] [address] Dec, [facility] [address] [id number] [place] [address] Nov, [facility] [address] [id number] [place] [address] Nov, [facility] [address] [id number] [place] [address] Nov, [facility] [address] [id number] [place] [address] Nov, [facility] [address] [id number] [place] [address] Oct, [facility] [address] [id number] [place] [address] Oct, [facility] [address] [id number] [place] [address] Oct, [facility] [address] [id number] [place] [address] Oct, [facility] [address] [id number] [place] [address] Oct, [facility] [address] [id number] [place] [address] Sep, [facility] [address] [id number] [place] [address] Sep, [facility] [address] [id number] [place] [address] Sep, [facility] [address] [id number] [place] [address] Sep, [facility] [address] [id number] [place] [address] Aug, [facility] [address] [id number] [place] [address] Aug, [facility] [address] [id number] [place] [address] Aug, [facility] [address] [id number] [place] [address] Aug, [facility] [address] [id number] [place] [address] Jul, [facility] [address] [id number] [place] [address] Jul, [facility] [address] [id number] [place] [address] Jul, [facility] [address] [id number] [place] [address] Jul, [facility] [address] [id number] [place] [address] Jul, [facility] [address] [id number] [place] [address] Jul, [facility] [address] [id number] [place] [address] May, [facility] [address] [id number] [place] [address] May, [facility] [address] [place] [id number] [place] [address] May, [facility] [address] [id number] [place] [address] May, [facility] [address] [id number] [place] [address] Apr, [facility] [address] [facility] [id number] [place] [address] Apr, [facility] [address] [facility] [id number] [place] [address] Apr, [facility] [address] [facility] [id number] [place] [address] Apr, [facility] [address] [id number] [place] [address] Mar, [facility] [address] [facility] [id number] [place] [address] Mar, [facility] [address] [facility] [id number] [place] [address] Mar, [facility] [address] [id number] [place] [address] Mar, [facility] [address] [id number] [place] [address] Feb, [facility] [address] [id number] [place] [address] Feb, [facility] [address] [id number] [place] [address] Feb, [facility] [address] [id number] [place] [address] Feb, [facility] [address] [id number] [place] [address] Feb, [facility] [address] [id number] [place] [address] Feb, [facility] [address] [facility] [id number] [place] [address] January, [facility] [address] [id number] [place] [address] January, [facility] [address] [id number] [place] [address] January, [facility] [address] [id number] [place] [address] January, [facility] [address] [facility] [id number] [place] [address] January, [facility] [address] [facility] [id number] [facility] [place] [address] January, [facility] [address] [id number] [place] [address] January, [facility] [address] [id number] [place] [address] January, [facility] [address] [facility] [id number] [place] [address] Dec, [facility] [address] [id number] [place] [address] Dec, [facility] [address] [id number] [place] [address] Dec, [facility] [address] [id number] [place] [address] Dec, [facility] [address] [id number] [place] [address] Dec, [facility] [address] [id number] [place] [address] Dec, [facility] [address] [id number] [place] [address] Dec, [facility] [address] [id number] [place] [address] Dec, [facility] [address] [id number] [place] [address] Dec, [facility] [address] [id number] [place] [address] Dec, [facility] [address] [id number] [place] [address] Nov, [facility] [address] [id number] [place] [address] Nov, [facility] [address] [id number] [place] [address] Nov, [facility] [address] [facility] [id number] [place] [address] Nov, [facility] [address] [facility] [id number] [place] [address] Oct, [facility] [address] [id number] [place] [address] Oct, [facility] [address] [id number] [place] [address] Oct, [facility] [address] [facility] [id number] [place] [address] Oct, [facility] [address] [id number] [place] [address] Oct, [facility] [address] [id number] [place] [address] Oct, [facility] [address] [id number] [place] [address] Sep, [facility] [address] [id number] [place] [address] Sep, [facility] [address] [id number] [place] [address] Sep, [facility] [address] [id number] [place] [address] Sep, [facility] [address] [id number] [place] [address] Sep, [facility] [address] [facility] [id number] [place] [address] Sep, [facility] [address] [id number] [place] [address] Sep, [facility] [address] [id number] [place] [address] Sep, [facility] [address] [id number] [place] [address] Aug, [facility] [address] [id number] [place] [address] Aug, 2012 [facility] [address] [id number] [place] [address] Aug, [facility] [address] [id number] [place] [address] Aug, [facility] [address] [id number] [place] [address] Aug, [facility] [address] [id number] [place] [address] Aug, [facility] [address] [id number] [place] [address] Aug, [facility] [address] [id number] [place] [address] Aug, [facility] [address] [id number] [place] [address] 15 Jul, 2013 [facility] [address] [id number] [place] [address] 15 Jul, 2013 [facility] [address] [id number] [place] [address] Jul, [facility] [address] [id number] [place] [address] Jul, [facility] [address] [id number] [place] [address] 08 Jul, 2013 [facility] [address] [id number] [place] [address] 08 Jul, 2013 [facility] [address] [id number] [place] [address] Jul, [facility] [address] [id number] [place] [address] 07 Jul, 2013 [facility] [address] [id number] [place] [address] 07 Jul, 2013 [facility] [address] [id number] [place] [address] Jul, [facility] [address] [id number] [place] [address] Jul, [facility] [address] [id number] [place] [address] Jul, [facility] [address] [id number] [place] [address] Jul, [facility] [address] [id number] [place] [address] Jul, 2012 [facility] [address] [id number] [place] [address] Jul, [facility] [address] [id number] [place] [address] Jul, [facility] [address] [id number] [place] [address] Jul, [facility] [address] [id number] [place] [address] Jul, [facility] [address] [id number] [place] [address] Jul, [facility] [address] [id number] [place] [address] Jul, [facility] [address] [id number] [place] [address] Jun, [facility] [address] [id number] [place] [address] 30 May, 2013 [facility] [address] [id number] [place] [address] May, [facility] [address] [id number] [place] [address] Apr, [facility] [address] [id number] [place] [address] Apr, [facility] [address] [id number] [place] [address] Apr, [facility] [address] [id number] [facility] [place] [address] Mar, [facility] [address] [id number] [place] [address] Mar, [facility] [address] [id number] [place] [address] Mar, [facility] [address] [id number] [place] [address] Mar, [facility] [address] [id number] [place] [address] Mar, [facility] [address] [id number] [place] [address] Mar, [facility] [address] [id number] [place] [address] Feb, [facility] [address] [id number] [place] [address] Feb, [facility] [address] [id number] [place] [address] Feb, [facility] [address] [id number] [place] [address] Feb, [facility] [address] [id number] [place] [address] 24 Jan, 2013 [facility] [address] [id number] [place] [address] January, [facility] [address] [id number] [place] [address] Dec, [facility] [address] [id number] [place] [address] Nov, [facility] [address] [id number] [place] [address] 20 Oct, 2012 [facility] [address] [id number] [place] [address] 15 Oct, 2012 [facility] [address] [id number] [place] [address] 14 Oct, 2012 [facility] [address] [id number] [place] [address] Oct, [facility] [address] [id number] [place] [address] Oct, [facility] [address] [id number] [place] [address] Oct, [facility] [address] [id number] [place] [address] Oct, [facility] [address] [id number] [place] [address] Sep, [facility] [address] [id number] [place] [address] Sep, [facility] [address] [id number] [place] [address] Aug, [facility] [address] [id number] [place] [address] Aug, [facility] [address] [id number] [place] [address] Jul, [facility] [address] [id number] [place] [address] Jul, [facility] [address] [id number] [place] [address] Jun, [facility] [address] [id number] [place] [address] Jun, [facility] [address] [id number] [place] [address] Jun, [facility] [address] [id number] [place] [address] Jun, [facility] [address] [id number] [place] [address] Jun, [facility] [address] [id number] [place] [address] Jun, [facility] [address] [id number] [place] [address] Jun, [facility] [address] [id number] [place] [address] Jun, [facility] [address] [id number] [place] [address] Jun, [facility] [address] [id number] [place] [address] 30 May, 2011 [facility] [address] [id number] [place] [address] 25 May, 2011 [facility] [address] [id number] [place] [address] May, [facility] [address] [id number] [place] [address] May, [facility] [address] [id number] [place] [address] May, [facility] [address] [id number] [place] [address] 05 May, 2012 [facility] [address] [facility] [id number] [place] [address] Apr, [facility] [address] [id number] [place] [address] Mar, [facility] [address] [id number] [place] [address] Mar, [facility] [address] [id number] [place] [address] Mar, [facility] [address] [id number] [place] [address] Mar, [facility] [address] [id number] [place] [address] Mar, [facility] [address] [id number] [place] [address] Mar, [facility] [address] [id number] [place] [address] Mar, [facility] [address] [id number] [place] [address] Mar, [facility] [address] [id number] [place] [address] Feb, [facility] [address] [id number] [place] [address] Feb, [facility] [address] [id number] [place] [address] Feb, [facility] [address] [id number] [place] [address] January, [facility] [address] [id number] [place] [address] January, [facility] [address] [id number] [place] [address] January, [facility] [address] [id number] [place] [address] Dec, [facility] [address] [id number] [place] [address] Nov, [facility] [address] [id number] [place] [address] Nov, [facility] [address] [id number] [place] [address] Nov, [facility] [address] [id number] [place] [address] Nov, [facility] [address] [id number] [place] [address] Oct, [facility] [address] [id number] [place] [address] Oct, [facility] [address] [id number] [place] [address] Oct, [facility] [address] [id number] [place] [address] Oct, [facility] [address] [id number] [place] [address] Oct, [facility] [address] [id number] [place] [address] Oct, [facility] [address] [id number] [place] [address] Oct, [facility] [address] [id number] [place] [address] Sep, [facility] [address] [id number] [place] [address] Sep, [facility] [address] [id number] [place] [address] Sep, [facility] [id number] [place] [address] Sep, [facility] [id number] [place] [address] Sep, [facility] [id number] [place] [address] Sep, [facility] [address] [id number] [place] [address] Sep, [facility] [id number] [place] [address] Aug, [facility] [address] [id number] [place] [address] Aug, [facility] [id number] [place] [address] Jul, [facility] [address] [id number] [place] [address] Jul, [facility] [id number] [place] [address] Jul, [facility] [address] [id number] [place] [address] 24 Jun, 2011 [facility] [address] [id number] [place] [address] Nov, [facility] [id number] [place] [address] Aug, [facility] [id number] [place] [address] Aug, [facility] [address] [id number] [place] [address] Aug, [facility] [id number] [place] [address] Jul, [facility] [id number] [place] [address] Jul, [facility] [id number] [place] [address] Jun, [facility] [id number] [place] [address] Jun, [facility] [id number] [place] [address] Aug, [facility] [id number] [place] [address] Aug, [facility] [id number] [place] [address] Aug, [facility] [id number] [place] [address] Jul, [facility] [id number] [place] [address] Jul, [facility] [id number] [place] [address] Jul, [facility] [id number] [place] [address] Jun, [facility] [id number] [place] [address] Jun, [facility] [id number] [place] [address] Jun, IMMUNIZATIONS No Known Immunizations SOCIAL HISTORY Never Assessed REASON FOR VISIT PLAN OF CARE VITAL SIGNS MEDICATIONS Unknown Medications RESULTS No Results PROCEDURES No Known procedures INSTRUCTIONS MEDICATIONS ADMINISTERED No Known Medications MEDICAL (GENERAL) HISTORY Type Description Date Surgical History Left hip replacement 2005 Surgical History right leg fx Surgical History right ankle fx Surgical History right knee arthroscopy
--- OUTSIDE RECORDS SUMMARY | 2019-12-22 20:34 | XMS REPORT ---
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 Name Role Phone LAKSHMI TORRES Unavailable PROBLEMS Type Condition ICD9-CM Code IPR61-[place] Code Onset Dates Condition S tatus SNOMED Code Problem Cough R05 Active 06074329 Problem Hypertension I10 Active 8421834 3 Problem PAD (peripheral artery disease) I73.9 Active 606052641 Problem Mixed hyperlipidemia E78.2 Active 685301587 Problem GERD (gastroesophageal reflux disease) K21.9 Active 611038885 Problem RLS (restless legs syndrome) G25.81 A ctive 81300937 Problem Venous insufficiency I87.2 Active 40236636 Problem Dorsalgia, unspecified M54.9 Active 428790538 Problem OAB (overactive bladder) N32.81 Activ e [id number] ALLERGIES No Information ENCOUNTERS Encounter Location Date Diagnosis [place] [address] [address] Aug, Hypertension I10 [place] [address] [address] Jul, [place] [address] [address] Jul, [facility] [address] [address] May, [place] [address] [place] [address] Apr, [facility] [address] [address] Apr, RLS (restless legs syndrome) G25.81 and Urinary tract infection without hematuria, site unspecified N39.0 [place] [address] [address] Mar, Urinary tract infection without hematuri a, site unspecified N39.0 [facility] [employer] [address] [place] [id number] Mar, Dysuria R30.[address] [place] [address] Feb, [place] [address] [address] Feb, Venous insufficiency I87.2 [place] [address] [address] January, Left hip pain M25.552 [place] [address] [address] Dec, [place] [address] [address] Nov, [facility] [employer] [facility] [employer] [address] [place] [id number] Nov, Encounter for Medicare annual wellness e xam Z00.00 ; Hypertension I10 ; UTI (urinary tract infection) N39.0 ; Venous insufficiency I87.2 ; OAB (overactive bladder) N32.81 ; GERD (gastroesophageal reflux disease) K21.9 and Mixed hyperlipidemia E78.[address] [address] Nov, [facility] [employer] [facility] [employer] [address] [place] [id number] Jul, Hypertension I10 ; Gastroesophageal refl ux disease without esophagitis K21.9 and PAD (peripheral artery disease) I73.9 [place] [address] [address] May, [facility] [employer] [facility] [employer] [address] [place] [id number] Mar, Hypertension I10 [place] [address] [address] Dec, [place] [address] [id number] [place] [address] Dec, [facility] [employer] [address] [place] [id number] Dec, Bronchitis J40 [facility] [employer] [facility] [employer] [address] [place] [id number] Oct, Hypertension I10 [place] [address] [place] [id number] [place] [id number] Aug, [facility] [employer] [address] [place] [id number] Jul, Cough R05 [place] [address] [address] Jul, [place] [address] [address] Jul, [facility] [employer] [address] [place] [id number] Jun, Hypertension I10 ; Gastroesophageal refl ux disease without esophagitis K21.9 ; Venous insufficiency I87.2 and OAB (overactive bladder) N32.81 [facility] [employer] [address] [place] [id number] Apr, Hypertension I10 and Venous insufficienc y I87.2 [place] [address] [place] [id number] [place] [id number] Apr, Encounter for other screening for malign ant neoplasm of breast Z12.39 [place] [address] [place] [id number] [place] [address] Mar, [place] [address] [address] Feb, [place] [address] [address] Feb, [place] [address] [address] January, UTI (urinary tract infection) N39.0 [place] [address] [address] January, UTI (urinary tract infection) N39.0 [facility] [address] [place] [id number] [place] [address] January, [facility] [address] [address] Dec, Bronchitis J40 [facility] [address] [place] [id number] Dec, Bronchitis J40 [facility] [address] [place] [id number] [place] [id number] Nov, [facility] [address] [place] [id number] [place] [id number] Nov, [facility] [address] [place] [id number] Nov, OAB (overactive bladder) N32.81 ; Dysuri a R30.0 ; Hypertension I10 and Mixed hyperlipidemia E78.2 [facility] [address] [place] [address] [id number] [place] [address] Oct, [facility] [address] [address] Sep, [facility] [address] [address] Sep, [facility] [address] [place] [id number] Aug, Hypertension I10 ; Mixed hyperlipidemia E78.2 and OAB (overactive bladder) N32.81 [facility] [address] [place] [address] [id number] [place] [address] Aug, [facility] [address] [address] Aug, [facility] [address] [address] Aug, [facility] [address] [address] Jun, [facility] [address] [address] Jun, [facility] [address] [address] Jun, [facility] [address] [address] Jun, [facility] [address] [address] May, [facility] [address] [address] Apr, Encounter for other screening for malign ant neoplasm of breast Z12.39 [facility] [address] [address] Apr, Encounter for other screening for malign ant neoplasm of breast Z12.39 [facility] [address] [address] Mar, Hypertension I10 ; Acute cystitis withou t hematuria N30.00 ; Venous insufficiency I87.2 ; RLS (restless legs syndrome) G25.81 ; Dorsalgia, unspecified M54.9 and Other chronic pain G89.29 [facility] [address] [address] Feb, [facility] [address] [address] January, [facility] [address] [address] January, [facility] [address] [address] Oct, [facility] [address] [address] Aug, Dysuria R30.0 [facility] [address] [address] Aug, [facility] [address] [address] Aug, [facility] [address] [id number] [place] [address] Jul, Hypertension I10 ; UTI (urinary tract in fection) N39.0 ; GERD (gastroesophageal reflux disease) K21.9 and PAD (peripheral artery disease) I73.9 [facility] [address] [place] [address] [id number] [place] [address] Jun, [facility] [address] [place] [address] [id number] [place] [address] Jun, [facility] [address] [place] [address] [id number] [place] [address] Jun, [facility] [address] [place] [address] [id number] [place] [address] May, [facility] [address] [place] [id number] [place] [address] Apr, [facility] [address] [place] [address] [id number] [place] [address] Apr, [facility] [address] [place] [address] [id number] [place] [address] Apr, Breast cancer screening V76.10 [facility] [address] [place] [address] [id number] [place] [address] Apr, [facility] [address] [place] [address] [id number] [place] [address] Mar, [facility] [address] [place] [address] [id number] [place] [address] Mar, [facility] [address] [place] [address] [id number] [place] [address] Mar, [facility] [address] [place] [address] [id number] [place] [address] Feb, [facility] [address] [place] [id number] [place] [address] Feb, [facility] [address] [place] [id number] [place] [address] January, [facility] [address] [id number] [place] [address] January, [facility] [address] [id number] [place] [address] January, [facility] [address] [id number] [place] [address] January, [facility] [address] [id number] [place] [address] Dec, [facility] [address] [id number] [place] [address] Dec, [facility] [address] [id number] [place] [address] Nov, [facility] [address] [id number] [place] [address] Nov, [facility] [address] [id number] [place] [address] Nov, [facility] [address] [id number] [place] [address] Nov, [facility] [address] [id number] [place] [address] Oct, [facility] [address] [id number] [place] [address] Oct, [facility] [address] [id number] [place] [address] Oct, [facility] [address] [id number] [place] [address] Oct, [facility] [address] [id number] [place] [address] Oct, [facility] [address] [id number] [place] [address] Sep, [facility] [address] [id number] [place] [address] Sep, [facility] [address] [id number] [place] [address] Sep, [facility] [address] [id number] [place] [address] Sep, [facility] [address] [id number] [place] [address] Aug, [facility] [address] [id number] [place] [address] Aug, [facility] [address] [id number] [place] [address] Aug, [facility] [address] [id number] [place] [address] Aug, [facility] [address] [id number] [place] [address] Jul, [facility] [address] [id number] [place] [address] Jul, [facility] [address] [id number] [place] [address] Jul, [facility] [address] [id number] [place] [address] Jul, [facility] [address] [id number] [place] [address] Jul, [facility] [address] [id number] [place] [address] Jul, [facility] [address] [id number] [place] [address] May, [facility] [address] [id number] [place] [address] May, [facility] [address] [place] [id number] [place] [address] May, [facility] [address] [id number] [place] [address] May, [facility] [address] [id number] [place] [address] Apr, [facility] [address] [facility] [id number] [place] [address] Apr, [facility] [address] [facility] [id number] [place] [address] Apr, [facility] [address] [facility] [id number] [place] [address] Apr, [facility] [address] [id number] [place] [address] Mar, [facility] [address] [facility] [id number] [place] [address] Mar, [facility] [address] [facility] [id number] [place] [address] Mar, [facility] [address] [id number] [place] [address] Mar, [facility] [address] [id number] [place] [address] Feb, [facility] [address] [id number] [place] [address] Feb, [facility] [address] [id number] [place] [address] Feb, [facility] [address] [id number] [place] [address] Feb, [facility] [address] [id number] [place] [address] Feb, [facility] [address] [id number] [place] [address] Feb, [facility] [address] [facility] [id number] [place] [address] January, [facility] [address] [id number] [place] [address] January, [facility] [address] [id number] [place] [address] January, [facility] [address] [id number] [place] [address] January, [facility] [address] [facility] [id number] [place] [address] January, [facility] [address] [facility] [id number] [place] [address] January, [facility] [address] [id number] [place] [address] January, [facility] [address] [id number] [place] [address] January, [facility] [address] [facility] [id number] [place] [address] Dec, [facility] [address] [id number] [place] [address] Dec, [facility] [address] [id number] [place] [address] Dec, [facility] [address] [id number] [place] [address] Dec, [facility] [address] [id number] [place] [address] Dec, [facility] [address] [id number] [place] [address] Dec, [facility] [address] [id number] [place] [address] Dec, [facility] [address] [id number] [place] [address] Dec, [facility] [address] [id number] [place] [address] Dec, [facility] [address] [id number] [place] [address] Dec, [facility] [address] [id number] [place] [address] Nov, [facility] [address] [id number] [place] [address] Nov, [facility] [address] [id number] [place] [address] Nov, [facility] [address] [facility] [id number] [place] [address] Nov, [facility] [address] [facility] [id number] [place] [address] Oct, [facility] [address] [id number] [place] [address] Oct, [facility] [address] [id number] [place] [address] Oct, [facility] [address] [facility] [id number] [place] [address] Oct, [facility] [address] [id number] [place] [address] Oct, [facility] [address] [id number] [place] [address] Oct, [facility] [address] [id number] [place] [address] Sep, [facility] [address] [id number] [place] [address] Sep, [facility] [address] [id number] [place] [address] Sep, [facility] [address] [id number] [place] [address] Sep, [facility] [address] [id number] [place] [address] Sep, [facility] [address] [facility] [id number] [place] [address] Sep, [facility] [address] [id number] [place] [address] Sep, [facility] [address] [id number] [place] [address] Sep, [facility] [address] [id number] [place] [address] Aug, [facility] [address] [id number] [place] [address] Aug, 2012 [facility] [address] [id number] [place] [address] Aug, [facility] [address] [id number] [place] [address] Aug, [facility] [address] [id number] [place] [address] Aug, [facility] [address] [id number] [place] [address] Aug, [facility] [address] [id number] [place] [address] Aug, [facility] [address] [id number] [place] [address] Aug, [facility] [address] [id number] [place] [address] 15 Jul, 2013 [facility] [address] [id number] [place] [address] 15 Jul, 2013 [facility] [address] [id number] [place] [address] Jul, [facility] [address] [id number] [place] [address] Jul, [facility] [address] [id number] [place] [address] 08 Jul, 2013 [facility] [address] [id number] [place] [address] 08 Jul, 2013 [facility] [address] [id number] [place] [address] Jul, [facility] [address] [id number] [place] [address] 07 Jul, 2013 [facility] [address] [id number] [place] [address] 07 Jul, 2013 [facility] [address] [id number] [place] [address] Jul, [facility] [address] [id number] [place] [address] Jul, [facility] [address] [id number] [place] [address] Jul, [facility] [address] [id number] [place] [address] Jul, [facility] [address] [id number] [place] [address] Jul, 2012 [facility] [address] [id number] [place] [address] Jul, [facility] [address] [id number] [place] [address] Jul, [facility] [address] [id number] [place] [address] Jul, [facility] [address] [id number] [place] [address] Jul, [facility] [address] [id number] [place] [address] Jul, [facility] [address] [id number] [place] [address] Jul, [facility] [address] [id number] [place] [address] Jun, [facility] [address] [id number] [place] [address] 30 May, 2013 [facility] [address] [id number] [place] [address] May, [facility] [address] [id number] [place] [address] Apr, [facility] [address] [id number] [place] [address] Apr, [facility] [address] [id number] [place] [address] Apr, [facility] [address] [id number] [place] [address] Mar, [facility] [address] [id number] [place] [address] Mar, [facility] [address] [id number] [place] [address] Mar, [facility] [address] [id number] [place] [address] Mar, [facility] [address] [id number] [place] [address] Mar, [facility] [address] [id number] [place] [address] Mar, [facility] [address] [id number] [place] [address] Feb, [facility] [address] [id number] [place] [address] Feb, [facility] [address] [id number] [place] [address] Feb, [facility] [address] [id number] [place] [address] Feb, [facility] [address] [id number] [place] [address] 24 Jan, 2013 [facility] [address] [facility] [id number] [place] [address] January, [facility] [address] [id number] [place] [address] Dec, [facility] [address] [id number] [place] [address] Nov, [facility] [address] [facility] [id number] [place] [address] 20 Oct, 2012 [facility] [address] [id number] [place] [address] 15 Oct, 2012 [facility] [address] [id number] [place] [address] 14 Oct, 2012 [facility] [address] [facility] [id number] [place] [address] Oct, [facility] [address] [id number] [place] [address] Oct, [facility] [address] [id number] [place] [address] Oct, [facility] [address] [id number] [place] [address] Oct, [facility] [address] [facility] [id number] [place] [address] Sep, [facility] [address] [facility] [id number] [place] [address] Sep, [facility] [address] [facility] [id number] [place] [address] Aug, [facility] [address] [facility] [id number] [place] [address] Aug, [facility] [address] [facility] [id number] [place] [address] Jul, [facility] [address] [facility] [id number] [place] [address] Jul, [facility] [address] [facility] [id number] [place] [address] Jun, [facility] [address] [facility] [id number] [place] [address] Jun, [facility] [address] [facility] [id number] [place] [address] Jun, [facility] [address] [id number] [place] [address] Jun, [facility] [address] [id number] [place] [address] Jun, [facility] [address] [facility] [id number] [place] [address] Jun, [facility] [address] [id number] [place] [address] Jun, [facility] [id number] [place] [address] Jun, [facility] [address] [id number] [place] [address] Jun, [facility] [address] [id number] [place] [address] 30 May, 2011 [facility] [id number] [place] [address] 25 May, 2011 [facility] [address] [id number] [place] [address] May, [facility] [address] [id number] [place] [address] May, [facility] [address] [facility] [id number] [place] [address] May, [facility] [address] [id number] [place] [address] 05 May, 2012 [facility] [address] [facility] [id number] [place] [address] Apr, [facility] [address] [facility] [id number] [place] [address] Mar, [facility] [address] [id number] [place] [address] Mar, [facility] [address] [facility] [id number] [place] [address] Mar, [facility] [address] [facility] [id number] [place] [address] Mar, [facility] [address] [id number] [place] [address] Mar, [facility] [address] [facility] [id number] [place] [address] Mar, [facility] [address] [id number] [place] [address] Mar, [facility] [address] [id number] [place] [address] Mar, [facility] [address] [facility] [id number] [place] [address] Feb, [facility] [address] [id number] [place] [address] Feb, [facility] [address] [id number] [place] [address] Feb, [facility] [address] [id number] [place] [address] January, [facility] [address] [id number] [place] [address] January, [facility] [address] [id number] [place] [address] January, [facility] [address] [id number] [place] [address] Dec, [facility] [address] [facility] [id number] [place] [address] Nov, [facility] [address] [id number] [place] [address] Nov, [facility] [address] [facility] [id number] [place] [address] Nov, [facility] [address] [id number] [place] [address] Nov, [facility] [address] [id number] [place] [address] Oct, [facility] [address] [facility] [id number] [place] [address] Oct, [facility] [address] [id number] [place] [address] Oct, [facility] [address] [facility] [id number] [place] [address] Oct, [facility] [address] [facility] [id number] [place] [address] Oct, [facility] [address] [facility] [id number] [place] [address] Oct, [facility] [address] [facility] [id number] [place] [address] Oct, [facility] [address] [facility] [id number] [place] [address] Sep, [facility] [address] [facility] [id number] [place] [address] Sep, [facility] [address] [facility] [id number] [place] [address] Sep, [facility] [id number] [place] [address] Sep, [facility] [id number] [place] [address] Sep, [facility] [id number] [place] [address] Sep, [facility] [address] [facility] [id number] [place] [address] Sep, [facility] [address] [id number] [place] [address] Aug, [facility] [address] [id number] [place] [address] Aug, [facility] [address] [id number] [place] [address] Jul, [facility] [address] [id number] [place] [address] Jul, [facility] [address] [id number] [place] [address] Jul, [facility] [address] [id number] [place] [address] 24 Jun, 2011 [facility] [address] [id number] [place] [address] Nov, [facility] [address] [id number] [place] [address] Aug, [facility] [address] [id number] [place] [address] Aug, [facility] [address] [id number] [place] [address] Aug, [facility] [address] [id number] [place] [address] Jul, [facility] [address] [id number] [place] [address] Jul, [facility] [address] [id number] [place] [address] Jun, [facility] [address] [id number] [place] [address] Jun, [facility] [address] [id number] [place] [address] Aug, [facility] [address] [id number] [place] [address] Aug, [facility] [address] [id number] [place] [address] Aug, [facility] [address] [id number] [place] [address] Jul, [facility] [address] [id number] [place] [address] Jul, [facility] [address] [id number] [place] [address] Jul, [facility] [address] [id number] [place] [address] Jun, [facility] [id number] [place] [address] Jun, [facility] [address] [id number] [place] [address] Jun, IMMUNIZATIONS No Known Immunizations SOCIAL HISTORY [...]
--- OUTSIDE RECORDS SUMMARY | 2019-12-22 20:34 | XMS REPORT ---
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 Head Name Role Phone LAKSHMI TORRES Unavailable PROBLEMS Type Condition ICD9-CM Code [id number] Code Onset Dates Condition S tatus SNOMED Code Problem Cough R05 Active 52579362 Problem Hypertension I10 Active 1873610 3 Problem PAD (peripheral artery disease) I73.9 Active 551474324 Problem Mixed hyperlipidemia E78.2 Active 709426131 Problem GERD (gastroesophageal reflux disease) K21.9 Active 317631706 Problem RLS (restless legs syndrome) G25.81 A ctive 27777467 Problem Venous insufficiency I87.2 Active 07447102 Problem Dorsalgia, unspecified M54.9 Active 301108434 Problem OAB (overactive bladder) N32.81 Activ e [id number] ALLERGIES No Information ENCOUNTERS Encounter Location Date Diagnosis [place] [address] [address] Aug, Hypertension I10 [place] [address] [address] Jul, [place] [address] [address] Jul, [facility] [address] [address] May, [place] [address] [address] [place] [address] Apr, [facility] [address] [address] Apr, RLS (restless legs syndrome) G25.81 and Urinary tract infection without hematuria, site unspecified N39.0 [place] [address] [address] Mar, Urinary tract infection without hematuri a, site unspecified N39.0 Via [email or web address] [address] [place] [id number] Mar, Dysuria R30.[address] [place] [address] Feb, [place] [address] [address] Feb, Venous insufficiency I87.2 [place] [address] [address] January, Left hip pain M25.552 [place] [address] [address] Dec, [place] [address] [address] Nov, Via [email or web address] [address] [place] [id number] Nov, Encounter for Medicare annual wellness e xam Z00.00 ; Hypertension I10 ; UTI (urinary tract infection) N39.0 ; Venous insufficiency I87.2 ; OAB (overactive bladder) N32.81 ; GERD (gastroesophageal reflux disease) K21.9 and Mixed hyperlipidemia E78.[address] [address] Nov, Via [email or web address] [address] [place] [id number] Jul, Hypertension I10 ; Gastroesophageal refl ux disease without esophagitis K21.9 and PAD (peripheral artery disease) I73.9 [place] [address] [address] May, Via [employer] [facility] [address] [place] [id number] Mar, Hypertension I10 [place] [address] [address] Dec, [place] [address] [id number] [place] [address] Dec, [facility] [email or web address] [address] [place] [id number] Dec, Bronchitis J40 Via [employer] [facility] [address] [place] [id number] Oct, Hypertension I10 [place] [address] [id number] [place] [id number] Aug, Via [email or web address] [address] [place] [id number] Jul, Cough R05 [place] [address] [address] Jul, [place] [address] [address] Jul, Via [employer] [address] [place] [id number] Jun, Hypertension I10 ; Gastroesophageal refl ux disease without esophagitis K21.9 ; Venous insufficiency I87.2 and OAB (overactive bladder) N32.81 [facility] [address] [place] [id number] Apr, Hypertension I10 and Venous insufficienc y I87.2 [place] [address] [id number] [place] [id number] Apr, Encounter for other screening for malign ant neoplasm of breast Z12.39 [place] [address] [place] [id number] [place] [address] Mar, [place] [address] [address] Feb, [place] [address] [address] Feb, [place] [address] [address] January, UTI (urinary tract infection) N39.0 [place] [address] [address] January, UTI (urinary tract infection) N39.0 [facility] [address] [place] [id number] [place] [address] January, [facility] [address] [address] Dec, Bronchitis J40 Via [facility] [address] [place] [id number] Dec, Bronchitis J40 [facility] [address] [id number] [id number] Nov, [facility] [address] [id number] [place] [id number] Nov, Via [facility] [address] [place] [address] Nov, OAB (overactive bladder) N32.81 ; Dysuri a R30.0 ; Hypertension I10 and Mixed hyperlipidemia E78.2 [facility] [address] [place] [id number] [place] [address] Oct, [facility] [address] [address] Sep, [facility] [address] [address] Sep, Via [facility] [employer] [address] [place] [id number] Aug, Hypertension I10 ; Mixed hyperlipidemia E78.2 and OAB (overactive bladder) N32.81 [facility] [address] [place] [id number] [place] [address] Aug, [facility] [address] [address] Aug, [facility] [address] [address] Aug, [facility] [address] [address] Jun, [facility] [address] [address] Jun, [facility] [address] [address] Jun, [facility] [address] [address] Jun, [facility] [address] [address] May, [facility] [address] [address] Apr, Encounter for other screening for malign ant neoplasm of breast Z12.39 [facility] [address] [address] Apr, Encounter for other screening for malign ant neoplasm of breast Z12.39 [facility] [address] [address] Mar, Hypertension I10 ; Acute cystitis withou t hematuria N30.00 ; Venous insufficiency I87.2 ; RLS (restless legs syndrome) G25.81 ; Dorsalgia, unspecified M54.9 and Other chronic pain G89.29 [facility] [address] [address] Feb, [facility] [address] [address] January, [facility] [address] [address] January, [facility] [address] [address] Oct, [facility] [address] [address] Aug, Dysuria R30.0 [facility] [address] [address] Aug, [facility] [address] [address] Aug, [facility] [address] [id number] [place] [address] Jul, Hypertension I10 ; UTI (urinary tract in fection) N39.0 ; GERD (gastroesophageal reflux disease) K21.9 and PAD (peripheral artery disease) I73.9 [facility] [address] [place] [id number] [place] [address] Jun, [facility] [address] [place] [id number] [place] [address] Jun, [facility] [address] [place] [id number] [place] [address] Jun, [facility] [address] [place] [id number] [place] [address] May, [facility] [address] [place] [id number] [place] [address] Apr, [facility] [address] [place] [id number] [place] [address] Apr, [facility] [address] [place] [id number] [place] [address] Apr, Breast cancer screening V76.10 [facility] [address] [place] [id number] [place] [address] Apr, [facility] [address] [place] [id number] [place] [address] Mar, [facility] [address] [place] [id number] [place] [address] Mar, [facility] [address] [place] [id number] [place] [address] Mar, [facility] [address] [place] [id number] [place] [address] Feb, [facility] [address] [place] [id number] [place] [address] Feb, [facility] [address] [place] [id number] [place] [address] January, [facility] [address] [id number] [place] [address] January, [facility] [address] [id number] [place] [address] January, [facility] [address] [id number] [place] [address] January, [facility] [address] [id number] [place] [address] Dec, [facility] [address] [id number] [place] [address] Dec, [facility] [address] [id number] [place] [address] Nov, [facility] [address] [id number] [place] [address] Nov, [facility] [address] [id number] [place] [address] Nov, [facility] [address] [id number] [place] [address] Nov, [facility] [address] [id number] [place] [address] Oct, [facility] [address] [id number] [place] [address] Oct, [facility] [address] [id number] [place] [address] Oct, [facility] [address] [id number] [place] [address] Oct, [facility] [address] [id number] [place] [address] Oct, [facility] [address] [id number] [place] [address] Sep, [facility] [address] [id number] [place] [address] Sep, [facility] [address] [id number] [place] [address] Sep, [facility] [address] [id number] [place] [address] Sep, [facility] [address] [id number] [place] [address] Aug, [facility] [address] [id number] [place] [address] Aug, [facility] [address] [id number] [place] [address] Aug, [facility] [address] [id number] [place] [address] Aug, [facility] [address] [id number] [place] [address] Jul, [facility] [address] [id number] [place] [address] Jul, [facility] [address] [id number] [place] [address] Jul, [facility] [address] [id number] [place] [address] Jul, [facility] [address] [id number] [place] [address] Jul, [facility] [address] [id number] [place] [address] Jul, [facility] [address] [id number] [place] [address] May, [facility] [address] [id number] [place] [address] May, [facility] [address] [place] [id number] [place] [address] May, [facility] [address] [id number] [place] [address] May, [facility] [address] [id number] [place] [address] Apr, [facility] [address] [facility] [id number] [place] [address] Apr, [facility] [address] [facility] [id number] [place] [address] Apr, [facility] [address] [facility] [id number] [place] [address] Apr, [facility] [address] [id number] [place] [address] Mar, [facility] [address] [facility] [id number] [place] [address] Mar, [facility] [address] [facility] [id number] [place] [address] Mar, [facility] [address] [id number] [place] [address] Mar, [facility] [address] [id number] [place] [address] Feb, [facility] [address] [id number] [place] [address] Feb, [facility] [address] [id number] [place] [address] Feb, [facility] [address] [id number] [place] [address] Feb, [facility] [address] [id number] [place] [address] Feb, [facility] [address] [id number] [place] [address] Feb, [facility] [address] [facility] [id number] [place] [address] January, [facility] [address] [id number] [place] [address] January, [facility] [address] [id number] [place] [address] January, [facility] [address] [id number] [place] [address] January, [facility] [address] [facility] [id number] [place] [address] January, [facility] [address] [facility] [id number] [facility] [place] [address] January, [facility] [address] [id number] [place] [address] January, [facility] [address] [id number] [place] [address] January, [facility] [address] [facility] [id number] [place] [address] Dec, [facility] [address] [id number] [place] [address] Dec, [facility] [address] [id number] [place] [address] Dec, [facility] [address] [id number] [place] [address] Dec, [facility] [address] [id number] [place] [address] Dec, [facility] [address] [id number] [place] [address] Dec, [facility] [address] [id number] [place] [address] Dec, [facility] [address] [id number] [place] [address] Dec, [facility] [address] [id number] [place] [address] Dec, [facility] [address] [id number] [place] [address] Dec, [facility] [address] [id number] [place] [address] Nov, [facility] [address] [id number] [place] [address] Nov, [facility] [address] [id number] [place] [address] Nov, [facility] [address] [facility] [id number] [place] [address] Nov, [facility] [address] [facility] [id number] [place] [address] Oct, [facility] [address] [id number] [place] [address] Oct, [facility] [address] [id number] [place] [address] Oct, [facility] [address] [facility] [id number] [place] [address] Oct, [facility] [address] [id number] [place] [address] Oct, [facility] [address] [id number] [place] [address] Oct, [facility] [address] [id number] [place] [address] Sep, [facility] [address] [id number] [place] [address] Sep, [facility] [address] [id number] [place] [address] Sep, [facility] [address] [id number] [place] [address] Sep, [facility] [address] [id number] [place] [address] Sep, [facility] [address] [facility] [id number] [place] [address] Sep, [facility] [address] [id number] [place] [address] Sep, [facility] [address] [id number] [place] [address] Sep, [facility] [address] [id number] [place] [address] Aug, [facility] [address] [id number] [place] [address] Aug, 2012 [facility] [address] [id number] [place] [address] Aug, [facility] [address] [id number] [place] [address] Aug, [facility] [address] [id number] [place] [address] Aug, [facility] [address] [id number] [place] [address] Aug, [facility] [address] [id number] [place] [address] Aug, [facility] [address] [id number] [place] [address] Aug, [facility] [address] [id number] [place] [address] 15 Jul, 2013 [facility] [address] [id number] [place] [address] 15 Jul, 2013 [facility] [address] [id number] [place] [address] Jul, [facility] [address] [id number] [place] [address] Jul, [facility] [address] [id number] [place] [address] 08 Jul, 2013 [facility] [address] [id number] [place] [address] 08 Jul, 2013 [facility] [address] [id number] [place] [address] Jul, [facility] [address] [id number] [place] [address] 07 Jul, 2013 [facility] [address] [id number] [place] [address] 07 Jul, 2013 [facility] [address] [id number] [place] [address] Jul, [facility] [address] [id number] [place] [address] Jul, [facility] [address] [id number] [place] [address] Jul, [facility] [address] [id number] [place] [address] Jul, [facility] [address] [id number] [place] [address] Jul, 2012 [facility] [address] [id number] [place] [address] Jul, [facility] [address] [id number] [place] [address] Jul, [facility] [address] [id number] [place] [address] Jul, [facility] [address] [id number] [place] [address] Jul, [facility] [address] [id number] [place] [address] Jul, [facility] [address] [id number] [place] [address] Jul, [facility] [address] [id number] [place] [address] Jun, [facility] [address] [id number] [place] [address] 30 May, 2013 [facility] [address] [id number] [place] [address] May, [facility] [address] [id number] [place] [address] Apr, [facility] [address] [id number] [place] [address] Apr, [facility] [address] [id number] [place] [address] Apr, [facility] [address] [id number] [facility] [place] [address] Mar, [facility] [id number] [place] [address] Mar, [facility] [address] [id number] [place] [address] Mar, [facility] [address] [id number] [place] [address] Mar, [facility] [address] [id number] [place] [address] Mar, [facility] [address] [id number] [place] [address] Mar, [facility] [address] [id number] [place] [address] Feb, [facility] [address] [id number] [place] [address] Feb, [facility] [address] [id number] [place] [address] Feb, [facility] [address] [id number] [place] [address] Feb, [facility] [address] [id number] [place] [address] 24 Jan, 2013 [facility] [address] [id number] [place] [address] January, [facility] [address] [id number] [place] [address] Dec, [facility] [address] [id number] [place] [address] Nov, [facility] [address] [id number] [place] [address] 20 Oct, 2012 [facility] [address] [id number] [place] [address] 15 Oct, 2012 [facility] [address] [id number] [place] [address] 14 Oct, 2012 [facility] [address] [id number] [place] [address] Oct, [facility] [address] [id number] [place] [address] Oct, [facility] [address] [id number] [place] [address] Oct, [facility] [address] [id number] [place] [address] Oct, [facility] [address] [id number] [place] [address] Sep, [facility] [address] [id number] [place] [address] Sep, [facility] [address] [id number] [place] [address] Aug, [facility] [address] [id number] [place] [address] Aug, [facility] [address] [id number] [place] [address] Jul, [facility] [address] [id number] [place] [address] Jul, [facility] [address] [id number] [place] [address] Jun, [facility] [address] [id number] [place] [address] Jun, [facility] [address] [id number] [place] [address] Jun, [facility] [address] [id number] [place] [address] Jun, [facility] [address] [id number] [place] [address] Jun, [facility] [address] [id number] [place] [address] Jun, [facility] [address] [id number] [place] [address] Jun, [facility] [address] [id number] [place] [address] Jun, [facility] [address] [id number] [place] [address] Jun, [facility] [address] [id number] [place] [address] 30 May, 2011 [facility] [address] [id number] [place] [address] 25 May, 2011 [facility] [address] [id number] [place] [address] May, [facility] [address] [id number] [place] [address] May, [facility] [address] [id number] [place] [address] May, [facility] [address] [id number] [place] [address] 05 May, 2012 [facility] [address] [id number] [place] [address] Apr, [facility] [address] [id number] [place] [address] Mar, [facility] [address] [id number] [place] [address] Mar, [facility] [address] [id number] [place] [address] Mar, [facility] [address] [id number] [place] [address] Mar, [facility] [address] [id number] [place] [address] Mar, [facility] [address] [id number] [place] [address] Mar, [facility] [address] [id number] [place] [address] Mar, [facility] [address] [id number] [place] [address] Mar, [facility] [address] [id number] [place] [address] Feb, [facility] [address] [id number] [place] [address] Feb, [facility] [address] [id number] [place] [address] Feb, [facility] [address] [id number] [place] [address] January, [facility] [address] [id number] [place] [address] January, [facility] [address] [id number] [place] [address] January, [facility] [address] [id number] [place] [address] Dec, [facility] [address] [id number] [place] [address] Nov, [facility] [address] [id number] [place] [address] Nov, [facility] [address] [id number] [place] [address] Nov, [facility] [address] [id number] [place] [address] Nov, [facility] [address] [id number] [place] [address] Oct, [facility] [address] [id number] [place] [address] Oct, [facility] [address] [id number] [place] [address] Oct, [facility] [address] [id number] [place] [address] Oct, [facility] [address] [id number] [place] [address] Oct, [facility] [address] [id number] [place] [address] Oct, [facility] [address] [id number] [place] [address] Oct, [facility] [address] [id number] [place] [address] Sep, [facility] [address] [id number] [place] [address] Sep, [facility] [address] [id number] [place] [address] Sep, [facility] [id number] [place] [address] Sep, [facility] [id number] [place] [address] Sep, [facility] [id number] [place] [address] Sep, [facility] [address] [id number] [place] [address] Sep, [facility] [id number] [place] [address] Aug, [facility] [address] [id number] [place] [address] Aug, [facility] [id number] [place] [address] Jul, [facility] [address] [id number] [place] [address] Jul, [facility] [id number] [place] [address] Jul, [facility] [address] [id number] [place] [address] 24 Jun, 2011 [facility] [address] [id number] [place] [address] Nov, [facility] [id number] [place] [address] Aug, [facility] [id number] [place] [address] Aug, [facility] [address] [id number] [place] [address] Aug, [facility] [id number] [place] [address] Jul, [facility] [id number] [place] [address] Jul, [facility] [id number] [place] [address] Jun, [facility] [id number] [place] [address] Jun, [facility] [id number] [place] [address] Aug, [facility] [id number] [place] [address] Aug, [facility] [id number] [place] [address] Aug, [facility] [id number] [place] [address] Jul, [facility] [id number] [place] [address] Jul, [facility] [id number] [place] [address] Jul, [facility] [id number] [place] [address] Jun, [facility] [id number] [place] [address] Jun, [facility] [id number] [place] [address] Jun, IMMUNIZATIONS No Known Immunizations SOCIAL HISTORY [...]
--- OUTSIDE RECORDS SUMMARY | 2019-12-22 20:35 | XMS REPORT ---
Author Author Madelyn TORRES [facility] Address [address] [place] [address] Care Team Providers Care Electrical Wirer Name Role Phone LAKSHMI TORRES Unavailable PROBLEMS Type Condition ICD9-CM Code PUW55-PB Code Onset Dates Condition S tatus SNOMED Code Problem Cough R05 Active 84416082 Problem Hypertension I10 Active 7313582 3 Problem PAD (peripheral artery disease) I73.9 Active 604539134 Problem Mixed hyperlipidemia E78.2 Active 681062770 Problem GERD (gastroesophageal reflux disease) K21.9 Active 932003177 Problem RLS (restless legs syndrome) G25.81 A ctive 68104529 Problem Venous insufficiency I87.2 Active 83557143 Problem Dorsalgia, unspecified M54.9 Active 080163823 Problem OAB (overactive bladder) N32.81 Activ e [id number] ALLERGIES No Information ENCOUNTERS Encounter Location Date Diagnosis [place] [address] [address] Aug, Hypertension I10 [place] [address] [address] Jul, [place] [address] [address] Jul, [facility] [address] [address] May, [place] [address] [address] [place] [address] Apr, [facility] [address] [address] Apr, RLS (restless legs syndrome) G25.81 and Urinary tract infection without hematuria, site unspecified N39.0 [place] [address] [address] Mar, Urinary tract infection without hematuri a, site unspecified N39.0 Via [employer] [address] [place] [id number] Mar, Dysuria R30.[address] [place] [address] Feb, [place] [address] [address] Feb, Venous insufficiency I87.2 [place] [address] [address] January, Left hip pain M25.552 [place] [address] [address] Dec, [place] [address] [address] Nov, Via [employer] [address] [place] [id number] Nov, Encounter for Medicare annual wellness e xam Z00.00 ; Hypertension I10 ; UTI (urinary tract infection) N39.0 ; Venous insufficiency I87.2 ; OAB (overactive bladder) N32.81 ; GERD (gastroesophageal reflux disease) K21.9 and Mixed hyperlipidemia E78.[address] [address] Nov, Via [employer] [address] [place] [id number] Jul, Hypertension I10 ; Gastroesophageal refl ux disease without esophagitis K21.9 and PAD (peripheral artery disease) I73.9 [place] [address] [address] May, Via [facility] [employer] [address] [place] [id number] Mar, Hypertension I10 [place] [address] [address] Dec, [place] [address] [id number] [place] [address] Dec, Via [employer] [address] [place] [id number] Dec, Bronchitis J40 Via [facility] [employer] [facility] [address] [place] [id number] Oct, Hypertension I10 [place] [address] [place] [id number] [place] [id number] Aug, Via [employer] [address] [place] [id number] Jul, Cough R05 [place] [address] [address] Jul, [place] [address] [address] Jul, Via [employer] [address] [place] [id number] Jun, Hypertension I10 ; Gastroesophageal refl ux disease without esophagitis K21.9 ; Venous insufficiency I87.2 and OAB (overactive bladder) N32.81 Via [employer] [address] [place] [id number] Apr, Hypertension I10 and Venous insufficienc y I87.2 [place] [address] [place] [id number] [place] [id number] Apr, Encounter for other screening for malign ant neoplasm of breast Z12.39 [place] [address] [place] [id number] [place] [address] Mar, [place] [address] [address] Feb, [place] [address] [address] Feb, [place] [address] [address] January, UTI (urinary tract infection) N39.0 [place] [address] [address] January, UTI (urinary tract infection) N39.0 [facility] [address] [place] [id number] [place] [address] January, [facility] [address] [address] Dec, Bronchitis J40 Via [facility] [address] [place] [id number] Dec, Bronchitis J40 [facility] [address] [id number] [id number] Nov, [facility] [address] [place] [id number] [place] [id number] Nov, Via [facility] [address] [place] [id number] Nov, OAB (overactive bladder) N32.81 ; Dysuri a R30.0 ; Hypertension I10 and Mixed hyperlipidemia E78.2 [facility] [address] [place] [id number] [place] [address] Oct, [facility] [address] [address] Sep, [facility] [address] [address] Sep, Via [facility] [employer] [address] [place] [id number] Aug, Hypertension I10 ; Mixed hyperlipidemia E78.2 and OAB (overactive bladder) N32.81 [facility] [address] [place] [id number] [place] [address] Aug, [facility] [address] [address] Aug, [facility] [address] [address] Aug, [facility] [address] [address] Jun, [facility] [address] [address] Jun, [facility] [address] [address] Jun, [facility] [address] [address] Jun, [facility] [address] [address] May, [facility] [address] [address] Apr, Encounter for other screening for malign ant neoplasm of breast Z12.39 [facility] [address] [address] Apr, Encounter for other screening for malign ant neoplasm of breast Z12.39 [facility] [address] [address] Mar, Hypertension I10 ; Acute cystitis withou t hematuria N30.00 ; Venous insufficiency I87.2 ; RLS (restless legs syndrome) G25.81 ; Dorsalgia, unspecified M54.9 and Other chronic pain G89.29 [facility] [address] [address] Feb, [facility] [address] [address] January, [facility] [address] [address] January, [facility] [address] [address] Oct, [facility] [address] [address] Aug, Dysuria R30.0 [facility] [address] [address] Aug, [facility] [address] [address] Aug, [facility] [address] [id number] [place] [address] Jul, Hypertension I10 ; UTI (urinary tract in fection) N39.0 ; GERD (gastroesophageal reflux disease) K21.9 and PAD (peripheral artery disease) I73.9 [facility] [address] [place] [id number] [place] [address] Jun, [facility] [address] [place] [id number] [place] [address] Jun, [facility] [address] [place] [id number] [place] [address] Jun, [facility] [address] [place] [id number] [place] [address] May, [facility] [address] [place] [id number] [place] [address] Apr, [facility] [address] [place] [id number] [place] [address] Apr, [facility] [address] [place] [id number] [place] [address] Apr, Breast cancer screening V76.10 [facility] [address] [place] [id number] [place] [address] Apr, [facility] [address] [place] [id number] [place] [address] Mar, [facility] [address] [place] [id number] [place] [address] Mar, [facility] [address] [place] [id number] [place] [address] Mar, [facility] [address] [place] [id number] [place] [address] Feb, [facility] [address] [place] [id number] [place] [address] Feb, [facility] [address] [place] [id number] [place] [address] January, [facility] [address] [id number] [place] [address] January, [facility] [address] [id number] [place] [address] January, [facility] [address] [id number] [place] [address] January, [facility] [address] [id number] [place] [address] Dec, [facility] [address] [id number] [place] [address] Dec, [facility] [address] [id number] [place] [address] Nov, [facility] [address] [id number] [place] [address] Nov, [facility] [address] [id number] [place] [address] Nov, [facility] [address] [id number] [place] [address] Nov, [facility] [address] [id number] [place] [address] Oct, [facility] [address] [id number] [place] [address] Oct, [facility] [address] [id number] [place] [address] Oct, [facility] [address] [id number] [place] [address] Oct, [facility] [address] [id number] [place] [address] Oct, [facility] [address] [id number] [place] [address] Sep, [facility] [address] [id number] [place] [address] Sep, [facility] [address] [id number] [place] [address] Sep, [facility] [address] [id number] [place] [address] Sep, [facility] [address] [id number] [place] [address] Aug, [facility] [address] [id number] [place] [address] Aug, [facility] [address] [id number] [place] [address] Aug, [facility] [address] [id number] [place] [address] Aug, [facility] [address] [id number] [place] [address] Jul, [facility] [address] [id number] [place] [address] Jul, [facility] [address] [id number] [place] [address] Jul, [facility] [address] [id number] [place] [address] Jul, [facility] [address] [id number] [place] [address] Jul, [facility] [address] [id number] [place] [address] Jul, [facility] [address] [id number] [place] [address] May, [facility] [address] [id number] [place] [address] May, [facility] [address] [place] [id number] [place] [address] May, [facility] [address] [id number] [place] [address] May, [facility] [address] [id number] [place] [address] Apr, [facility] [address] [facility] [id number] [place] [address] Apr, [facility] [address] [facility] [id number] [place] [address] Apr, [facility] [address] [facility] [id number] [place] [address] Apr, [facility] [address] [id number] [place] [address] Mar, [facility] [address] [facility] [id number] [place] [address] Mar, [facility] [address] [facility] [id number] [place] [address] Mar, [facility] [address] [id number] [place] [address] Mar, [facility] [address] [id number] [place] [address] Feb, [facility] [address] [id number] [place] [address] Feb, [facility] [address] [id number] [place] [address] Feb, [facility] [address] [id number] [place] [address] Feb, [facility] [address] [id number] [place] [address] Feb, [facility] [address] [id number] [place] [address] Feb, [facility] [address] [facility] [id number] [place] [address] January, [facility] [address] [id number] [place] [address] January, [facility] [address] [id number] [place] [address] January, [facility] [address] [id number] [place] [address] January, [facility] [address] [facility] [id number] [place] [address] January, [facility] [address] [facility] [id number] [facility] [place] [address] January, [facility] [address] [id number] [place] [address] January, [facility] [address] [id number] [place] [address] January, [facility] [address] [facility] [id number] [place] [address] Dec, [facility] [address] [id number] [place] [address] Dec, [facility] [address] [id number] [place] [address] Dec, [facility] [address] [id number] [place] [address] Dec, [facility] [address] [id number] [place] [address] Dec, [facility] [address] [id number] [place] [address] Dec, [facility] [address] [id number] [place] [address] Dec, [facility] [address] [id number] [place] [address] Dec, [facility] [address] [id number] [place] [address] Dec, [facility] [address] [id number] [place] [address] Dec, [facility] [address] [id number] [place] [address] Nov, [facility] [address] [id number] [place] [address] Nov, [facility] [address] [id number] [place] [address] Nov, [facility] [address] [facility] [id number] [place] [address] Nov, [facility] [address] [facility] [id number] [place] [address] Oct, [facility] [address] [id number] [place] [address] Oct, [facility] [address] [id number] [place] [address] Oct, [facility] [address] [facility] [id number] [place] [address] Oct, [facility] [address] [id number] [place] [address] Oct, [facility] [address] [id number] [place] [address] Oct, [facility] [address] [id number] [place] [address] Sep, [facility] [address] [id number] [place] [address] Sep, [facility] [address] [id number] [place] [address] Sep, [facility] [address] [id number] [place] [address] Sep, [facility] [address] [id number] [place] [address] Sep, [facility] [address] [facility] [id number] [place] [address] Sep, [facility] [address] [id number] [place] [address] Sep, [facility] [address] [id number] [place] [address] Sep, [facility] [address] [id number] [place] [address] Aug, [facility] [address] [id number] [place] [address] Aug, 2012 [facility] [address] [id number] [place] [address] Aug, [facility] [address] [id number] [place] [address] Aug, [facility] [address] [id number] [place] [address] Aug, [facility] [address] [id number] [place] [address] Aug, [facility] [address] [id number] [place] [address] Aug, [facility] [address] [id number] [place] [address] Aug, [facility] [address] [id number] [place] [address] 15 Jul, 2013 [facility] [address] [id number] [place] [address] 15 Jul, 2013 [facility] [address] [id number] [place] [address] Jul, [facility] [address] [id number] [place] [address] Jul, [facility] [address] [id number] [place] [address] 08 Jul, 2013 [facility] [address] [id number] [place] [address] 08 Jul, 2013 [facility] [address] [id number] [place] [address] Jul, [facility] [address] [id number] [place] [address] 07 Jul, 2013 [facility] [address] [id number] [place] [address] 07 Jul, 2013 [facility] [address] [id number] [place] [address] Jul, [facility] [address] [id number] [place] [address] Jul, [facility] [address] [id number] [place] [address] Jul, [facility] [address] [id number] [place] [address] Jul, [facility] [address] [id number] [place] [address] Jul, 2012 [facility] [address] [id number] [place] [address] Jul, [facility] [address] [id number] [place] [address] Jul, [facility] [address] [id number] [place] [address] Jul, [facility] [address] [id number] [place] [address] Jul, [facility] [address] [id number] [place] [address] Jul, [facility] [address] [id number] [place] [address] Jul, [facility] [address] [id number] [place] [address] Jun, [facility] [address] [id number] [place] [address] 30 May, 2013 [facility] [address] [id number] [place] [address] May, [facility] [address] [id number] [place] [address] Apr, [facility] [address] [id number] [place] [address] Apr, [facility] [address] [id number] [place] [address] Apr, [facility] [address] [id number] [facility] [place] [address] Mar, [facility] [address] [id number] [place] [address] Mar, [facility] [address] [id number] [place] [address] Mar, [facility] [address] [id number] [place] [address] Mar, [facility] [address] [id number] [place] [address] Mar, [facility] [address] [id number] [place] [address] Mar, [facility] [address] [id number] [place] [address] Feb, [facility] [address] [id number] [place] [address] Feb, [facility] [address] [id number] [place] [address] Feb, [facility] [address] [id number] [place] [address] Feb, [facility] [address] [id number] [place] [address] 24 Jan, 2013 [facility] [address] [id number] [place] [address] January, [facility] [address] [id number] [place] [address] Dec, [facility] [address] [id number] [place] [address] Nov, [facility] [address] [id number] [place] [address] 20 Oct, 2012 [facility] [address] [id number] [place] [address] 15 Oct, 2012 [facility] [address] [id number] [place] [address] 14 Oct, 2012 [facility] [address] [id number] [place] [address] Oct, [facility] [address] [id number] [place] [address] Oct, [facility] [address] [id number] [place] [address] Oct, [facility] [address] [id number] [place] [address] Oct, [facility] [address] [id number] [place] [address] Sep, [facility] [address] [id number] [place] [address] Sep, [facility] [address] [id number] [place] [address] Aug, [facility] [address] [id number] [place] [address] Aug, [facility] [address] [id number] [place] [address] Jul, [facility] [address] [id number] [place] [address] Jul, [facility] [address] [id number] [place] [address] Jun, [facility] [address] [id number] [place] [address] Jun, [facility] [address] [id number] [place] [address] Jun, [facility] [address] [id number] [place] [address] Jun, [facility] [address] [id number] [place] [address] Jun, [facility] [address] [id number] [place] [address] Jun, [facility] [address] [id number] [place] [address] Jun, [facility] [address] [id number] [place] [address] Jun, [facility] [address] [id number] [place] [address] Jun, [facility] [address] [id number] [place] [address] 30 May, 2011 [facility] [address] [id number] [place] [address] 25 May, 2011 [facility] [address] [id number] [place] [address] May, [facility] [address] [id number] [place] [address] May, [facility] [address] [id number] [place] [address] May, [facility] [address] [id number] [place] [address] 05 May, 2012 [facility] [address] [id number] [place] [address] Apr, [facility] [address] [id number] [place] [address] Mar, [facility] [address] [id number] [place] [address] Mar, [facility] [address] [id number] [place] [address] Mar, [facility] [address] [id number] [place] [address] Mar, [facility] [address] [id number] [place] [address] Mar, [facility] [address] [id number] [place] [address] Mar, [facility] [address] [id number] [place] [address] Mar, [facility] [address] [id number] [place] [address] Mar, [facility] [address] [id number] [place] [address] Feb, [facility] [address] [id number] [place] [address] Feb, [facility] [address] [id number] [place] [address] Feb, [facility] [address] [id number] [place] [address] January, [facility] [address] [id number] [place] [address] January, [facility] [address] [id number] [place] [address] January, [facility] [address] [id number] [place] [address] Dec, [facility] [address] [id number] [place] [address] Nov, [facility] [address] [id number] [place] [address] Nov, [facility] [address] [id number] [place] [address] Nov, [facility] [address] [id number] [place] [address] Nov, [facility] [address] [id number] [place] [address] Oct, [facility] [address] [id number] [place] [address] Oct, [facility] [address] [id number] [place] [address] Oct, [facility] [address] [id number] [place] [address] Oct, [facility] [address] [id number] [place] [address] Oct, [facility] [address] [id number] [place] [address] Oct, [facility] [address] [id number] [place] [address] Oct, [facility] [address] [id number] [place] [address] Sep, [facility] [address] [id number] [place] [address] Sep, [facility] [address] [id number] [place] [address] Sep, [facility] [id number] [place] [address] Sep, [facility] [id number] [place] [address] Sep, [facility] [id number] [place] [address] Sep, [facility] [address] [id number] [place] [address] Sep, [facility] [id number] [place] [address] Aug, [facility] [address] [id number] [place] [address] Aug, [facility] [id number] [place] [address] Jul, [facility] [address] [id number] [place] [address] Jul, [facility] [id number] [place] [address] Jul, [facility] [address] [id number] [place] [address] 24 Jun, 2011 [facility] [address] [id number] [place] [address] Nov, [facility] [id number] [place] [address] Aug, [facility] [id number] [place] [address] Aug, [facility] [address] [id number] [place] [address] Aug, [facility] [id number] [place] [address] Jul, [facility] [id number] [place] [address] Jul, [facility] [id number] [place] [address] Jun, [facility] [id number] [place] [address] Jun, [facility] [id number] [place] [address] Aug, [facility] [id number] [place] [address] Aug, [facility] [id number] [place] [address] Aug, [facility] [id number] [place] [address] Jul, [facility] [id number] [place] [address] Jul, [facility] [id number] [place] [address] Jul, [facility] [id number] [place] [address] Jun, [facility] [id number] [place] [address] Jun, [facility] [id number] [place] [address] Jun, IMMUNIZATIONS No Known Immunizations SOCIAL HISTORY [...]
--- OUTSIDE RECORDS SUMMARY | 2019-12-22 20:35 | XMS REPORT ---
Author Author Madelyn HAYNES Organization [facility] Address [address] [place] [address] Care Team Providers Care Shear Tender Name Role Phone KIMO HAYNES Unavailable PROBLEMS Type Condition ICD9-CM Code DIW50-UA Code Onset Dates Condition S tatus SNOMED Code Problem Cough R05 Active 81166901 Problem Hypertension I10 Active 4351717 3 Problem PAD (peripheral artery disease) I73.9 Active 840838310 Problem Mixed hyperlipidemia E78.2 Active 311047491 Problem GERD (gastroesophageal reflux disease) K21.9 Active 923356879 Problem RLS (restless legs syndrome) G25.81 A ctive 38973057 Problem Venous insufficiency I87.2 Active 77897444 Problem Dorsalgia, unspecified M54.9 Active 043857407 Problem OAB (overactive bladder) N32.81 Activ e [id number] ALLERGIES No Information ENCOUNTERS Encounter Location Date Diagnosis [place] [address] [address] Aug, Hypertension I10 [place] [address] [place] [address] [id number] [place] [address] Jul, [place] [address] [address] Jul, [facility] [address] [address] May, [place] [address] [place] [address] Apr, [facility] [address] [address] Apr, RLS (restless legs syndrome) G25.81 and Urinary tract infection without hematuria, site unspecified N39.0 [facility] [address] [address] Mar, Urinary tract infection without hematuri a, site unspecified N39.0 [facility] [address] [place] [id number] Mar, Dysuria R30.[address] [place] [address] Feb, [place] [address] [address] Feb, Venous insufficiency I87.2 [place] [address] [address] January, Left hip pain M25.552 [place] [address] [address] Dec, [place] [address] [address] Nov, [facility] [address] [place] [id number] Nov, Encounter for Medicare annual wellness e xam Z00.00 ; Hypertension I10 ; UTI (urinary tract infection) N39.0 ; Venous insufficiency I87.2 ; OAB (overactive bladder) N32.81 ; GERD (gastroesophageal reflux disease) K21.9 and Mixed hyperlipidemia E78.[address] [address] Nov, [facility] [address] [place] [id number] Jul, Hypertension I10 ; Gastroesophageal refl ux disease without esophagitis K21.9 and PAD (peripheral artery disease) I73.9 [place] [address] [address] May, [facility] [employer] [facility] [address] [place] [id number] Mar, Hypertension I10 [place] [address] [address] Dec, [place] [address] [id number] [place] [address] Dec, [facility] [address] [place] [id number] Dec, Bronchitis J40 [address] [facility] [facility] [address] [place] [id number] Oct, Hypertension I10 [place] [address] [id number] [place] [id number] Aug, [facility] [address] [place] [id number] Jul, Cough R05 [place] [address] [address] Jul, [place] [address] [address] Jul, [facility] [address] [place] [id number] Jun, Hypertension I10 ; Gastroesophageal refl ux disease without esophagitis K21.9 ; Venous insufficiency I87.2 and OAB (overactive bladder) N32.81 [facility] [address] [place] [id number] Apr, Hypertension I10 and Venous insufficienc y I87.2 [place] [address] [id number] [place] [id number] Apr, Encounter for other screening for malign ant neoplasm of breast Z12.39 [place] [address] [address] [id number] [place] [address] Mar, [place] [address] [address] Feb, [place] [address] [address] Feb, [place] [address] [address] January, UTI (urinary tract infection) N39.0 [place] [address] [address] January, UTI (urinary tract infection) N39.0 [facility] [id number] [place] [address] January, [facility] [address] [address] Dec, Bronchitis J40 Via [facility] [address] [place] [id number] Dec, [facility] [address] [id number] [id number] Nov, [facility] [address] [id number] [place] [id number] Nov, [facility] [address] [place] [id number] Nov, OAB (overactive bladder) N32.81 ; Dysuri a R30.0 ; Hypertension I10 and Mixed hyperlipidemia E78.2 [facility] [id number] [place] [address] Oct, [facility] [address] [address] Sep, [facility] [address] [address] Sep, Via [facility] [address] [place] [id number] Aug, Hypertension I10 ; Mixed hyperlipidemia E78.2 and OAB (overactive bladder) N32.81 [facility] [id number] [place] [address] Aug, [facility] [address] [address] Aug, [facility] [address] [address] Aug, [facility] [address] [address] Jun, [facility] [address] [address] Jun, [facility] [address] [address] Jun, [facility] [address] [address] Jun, [facility] [address] [address] May, [facility] [address] [address] Apr, Encounter for other screening for malign ant neoplasm of breast Z12.39 [facility] [address] [address] Apr, Encounter for other screening for malign ant neoplasm of breast Z12.39 [facility] [address] [address] Mar, Hypertension I10 ; Acute cystitis withou t hematuria N30.00 ; Venous insufficiency I87.2 ; RLS (restless legs syndrome) G25.81 ; Dorsalgia, unspecified M54.9 and Other chronic pain G89.29 [facility] [address] [address] Feb, [facility] [address] [address] January, [facility] [address] [address] January, [facility] [address] [address] Oct, [facility] [address] [address] Aug, Dysuria R30.0 [facility] [address] [address] Aug, [facility] [address] [address] Aug, [facility] [address] [id number] [place] [address] Jul, Hypertension I10 ; UTI (urinary tract in fection) N39.0 ; GERD (gastroesophageal reflux disease) K21.9 and PAD (peripheral artery disease) I73.9 [facility] [id number] [place] [address] Jun, [facility] [id number] [place] [address] Jun, [facility] [id number] [place] [address] Jun, [facility] [id number] [place] [address] May, [facility] [id number] [place] [address] Apr, [facility] [id number] [place] [address] Apr, [facility] [id number] [place] [address] Apr, Breast cancer screening V76.10 [facility] [id number] [place] [address] Apr, [facility] [id number] [place] [address] Mar, [facility] [id number] [place] [address] Mar, [facility] [id number] [place] [address] Mar, [facility] [id number] [place] [address] Feb, [facility] [id number] [place] [address] Feb, [facility] [id number] [place] [address] January, [facility] [address] [id number] [place] [address] January, [facility] [address] [id number] [place] [address] January, [facility] [address] [id number] [place] [address] January, [facility] [address] [id number] [place] [address] Dec, [facility] [address] [id number] [place] [address] Dec, [facility] [address] [id number] [place] [address] Nov, [facility] [address] [id number] [place] [address] Nov, [facility] [address] [id number] [place] [address] Nov, [facility] [address] [id number] [place] [address] Nov, [facility] [address] [id number] [place] [address] Oct, [facility] [address] [id number] [place] [address] Oct, [facility] [address] [id number] [place] [address] Oct, [facility] [address] [id number] [place] [address] Oct, [facility] [address] [id number] [place] [address] Oct, [facility] [address] [id number] [place] [address] Sep, [facility] [address] [id number] [place] [address] Sep, [facility] [address] [id number] [place] [address] Sep, [facility] [address] [id number] [place] [address] Sep, [facility] [address] [id number] [place] [address] Aug, [facility] [address] [id number] [place] [address] Aug, [facility] [address] [id number] [place] [address] Aug, [facility] [address] [id number] [place] [address] Aug, [facility] [address] [id number] [place] [address] Jul, [facility] [address] [id number] [place] [address] Jul, [facility] [address] [id number] [place] [address] Jul, [facility] [address] [id number] [place] [address] Jul, [facility] [address] [id number] [place] [address] Jul, [facility] [address] [id number] [place] [address] Jul, [facility] [address] [id number] [place] [address] May, [facility] [address] [id number] [place] [address] May, [facility] [address] [id number] [place] [address] May, [facility] [address] [id number] [place] [address] May, [facility] [address] [id number] [place] [address] Apr, [facility] [address] [facility] [id number] [place] [address] Apr, [facility] [address] [facility] [id number] [place] [address] Apr, [facility] [address] [facility] [id number] [place] [address] Apr, [facility] [address] [id number] [place] [address] Mar, [facility] [address] [facility] [id number] [place] [address] Mar, [facility] [address] [facility] [id number] [place] [address] Mar, [facility] [address] [id number] [place] [address] Mar, [facility] [address] [id number] [place] [address] Feb, [facility] [address] [id number] [place] [address] Feb, [facility] [address] [id number] [place] [address] Feb, [facility] [address] [id number] [place] [address] Feb, [facility] [address] [id number] [place] [address] Feb, [facility] [address] [id number] [place] [address] Feb, [facility] [address] [facility] [id number] [place] [address] January, [facility] [address] [id number] [place] [address] January, [facility] [address] [id number] [place] [address] January, [facility] [address] [id number] [place] [address] January, [facility] [address] [facility] [id number] [place] [address] January, [facility] [address] [facility] [id number] [facility] [place] [address] January, [facility] [address] [id number] [place] [address] January, [facility] [address] [id number] [place] [address] January, [facility] [address] [facility] [id number] [place] [address] Dec, [facility] [address] [id number] [place] [address] Dec, [facility] [address] [id number] [place] [address] Dec, [facility] [address] [id number] [place] [address] Dec, [facility] [address] [id number] [place] [address] Dec, [facility] [address] [id number] [place] [address] Dec, [facility] [address] [id number] [place] [address] Dec, [facility] [address] [id number] [place] [address] Dec, [facility] [address] [id number] [place] [address] Dec, [facility] [address] [id number] [place] [address] Dec, [facility] [address] [id number] [place] [address] Nov, [facility] [address] [id number] [place] [address] Nov, [facility] [address] [id number] [place] [address] Nov, [facility] [address] [facility] [id number] [place] [address] Nov, [facility] [address] [facility] [id number] [place] [address] Oct, [facility] [address] [id number] [place] [address] Oct, [facility] [address] [id number] [place] [address] Oct, [facility] [address] [facility] [id number] [place] [address] Oct, [facility] [address] [id number] [place] [address] Oct, [facility] [address] [id number] [place] [address] Oct, [facility] [address] [id number] [place] [address] Sep, [facility] [address] [id number] [place] [address] Sep, [facility] [address] [id number] [place] [address] Sep, [facility] [address] [id number] [place] [address] Sep, [facility] [address] [id number] [place] [address] Sep, [facility] [address] [facility] [id number] [place] [address] Sep, [facility] [address] [id number] [place] [address] Sep, [facility] [address] [id number] [place] [address] Sep, [facility] [address] [id number] [place] [address] Aug, [facility] [address] [id number] [place] [address] Aug, 2012 [facility] [address] [id number] [place] [address] Aug, [facility] [address] [id number] [place] [address] Aug, [facility] [address] [id number] [place] [address] Aug, [facility] [address] [id number] [place] [address] Aug, [facility] [address] [id number] [place] [address] Aug, [facility] [address] [id number] [place] [address] Aug, [facility] [address] [id number] [place] [address] 15 Jul, 2013 [facility] [address] [id number] [place] [address] 15 Jul, 2013 [facility] [address] [id number] [place] [address] Jul, [facility] [address] [id number] [place] [address] Jul, [facility] [address] [id number] [place] [address] 08 Jul, 2013 [facility] [address] [id number] [place] [address] 08 Jul, 2013 [facility] [address] [id number] [place] [address] Jul, [facility] [address] [id number] [place] [address] 07 Jul, 2013 [facility] [address] [id number] [place] [address] 07 Jul, 2013 [facility] [address] [id number] [place] [address] Jul, [facility] [address] [id number] [place] [address] Jul, [facility] [address] [id number] [place] [address] Jul, [facility] [address] [id number] [place] [address] Jul, [facility] [address] [id number] [place] [address] Jul, 2012 [facility] [address] [id number] [place] [address] Jul, [facility] [address] [id number] [place] [address] Jul, [facility] [address] [id number] [place] [address] Jul, [facility] [address] [id number] [place] [address] Jul, [facility] [address] [id number] [place] [address] Jul, [facility] [address] [id number] [place] [address] Jul, [facility] [address] [id number] [place] [address] Jun, [facility] [address] [id number] [place] [address] 30 May, 2013 [facility] [address] [id number] [place] [address] May, [facility] [address] [id number] [place] [address] Apr, [facility] [address] [id number] [place] [address] Apr, [facility] [address] [id number] [place] [address] Apr, [facility] [address] [id number] [facility] [place] [address] Mar, [facility] [id number] [place] [address] Mar, [facility] [address] [id number] [place] [address] Mar, [facility] [address] [id number] [place] [address] Mar, [facility] [address] [id number] [place] [address] Mar, [facility] [address] [id number] [place] [address] Mar, [facility] [address] [id number] [place] [address] Feb, [facility] [address] [id number] [place] [address] Feb, [facility] [address] [id number] [place] [address] Feb, [facility] [address] [id number] [place] [address] Feb, [facility] [address] [id number] [place] [address] 24 Jan, 2013 [facility] [address] [id number] [place] [address] January, [facility] [address] [id number] [place] [address] Dec, [facility] [address] [id number] [place] [address] Nov, [facility] [address] [id number] [place] [address] 20 Oct, 2012 [facility] [address] [id number] [place] [address] 15 Oct, 2012 [facility] [address] [id number] [place] [address] 14 Oct, 2012 [facility] [address] [id number] [place] [address] Oct, [facility] [address] [id number] [place] [address] Oct, [facility] [address] [id number] [place] [address] Oct, [facility] [address] [id number] [place] [address] Oct, [facility] [address] [id number] [place] [address] Sep, [facility] [address] [id number] [place] [address] Sep, [facility] [address] [id number] [place] [address] Aug, [facility] [address] [id number] [place] [address] Aug, [facility] [address] [id number] [place] [address] Jul, [facility] [address] [id number] [place] [address] Jul, [facility] [address] [id number] [place] [address] Jun, [facility] [address] [id number] [place] [address] Jun, [facility] [address] [id number] [place] [address] Jun, [facility] [address] [id number] [place] [address] Jun, [facility] [address] [id number] [place] [address] Jun, [facility] [address] [id number] [place] [address] Jun, [facility] [address] [id number] [place] [address] Jun, [facility] [address] [id number] [place] [address] Jun, [facility] [address] [id number] [place] [address] Jun, [facility] [address] [id number] [place] [address] 30 May, 2011 [facility] [address] [id number] [place] [address] 25 May, 2011 [facility] [address] [id number] [place] [address] May, [facility] [address] [id number] [place] [address] May, [facility] [address] [id number] [place] [address] May, [facility] [address] [id number] [place] [address] 05 May, 2012 [facility] [address] [id number] [place] [address] Apr, [facility] [address] [id number] [place] [address] Mar, [facility] [address] [id number] [place] [address] Mar, [facility] [address] [facility] [id number] [place] [address] Mar, [facility] [address] [id number] [place] [address] Mar, [facility] [address] [id number] [place] [address] Mar, [facility] [address] [id number] [place] [address] Mar, [facility] [address] [id number] [place] [address] Mar, [facility] [address] [id number] [place] [address] Mar, [facility] [address] [id number] [place] [address] Feb, [facility] [address] [id number] [place] [address] Feb, [facility] [address] [id number] [place] [address] Feb, [facility] [address] [id number] [place] [address] January, [facility] [address] [id number] [place] [address] January, [facility] [address] [id number] [place] [address] January, [facility] [address] [id number] [place] [address] Dec, [facility] [address] [id number] [place] [address] Nov, [facility] [address] [id number] [place] [address] Nov, [facility] [address] [id number] [place] [address] Nov, [facility] [address] [id number] [place] [address] Nov, [facility] [address] [id number] [place] [address] Oct, [facility] [address] [id number] [place] [address] Oct, [facility] [address] [id number] [place] [address] Oct, [facility] [address] [id number] [place] [address] Oct, [facility] [address] [id number] [place] [address] Oct, [facility] [address] [id number] [place] [address] Oct, [facility] [address] [id number] [place] [address] Oct, [facility] [address] [id number] [place] [address] Sep, [facility] [address] [id number] [place] [address] Sep, [facility] [address] [id number] [place] [address] Sep, [facility] [id number] [place] [address] Sep, [facility] [id number] [place] [address] Sep, [facility] [id number] [place] [address] Sep, [facility] [address] [id number] [place] [address] Sep, [facility] [id number] [place] [address] Aug, [facility] [address] [id number] [place] [address] Aug, [facility] [id number] [place] [address] Jul, [facility] [address] [id number] [place] [address] Jul, [facility] [id number] [place] [address] Jul, [facility] [address] [id number] [place] [address] 24 Jun, 2011 [facility] [address] [id number] [place] [address] Nov, [facility] [id number] [place] [address] Aug, [facility] [id number] [place] [address] Aug, [facility] [address] [id number] [place] [address] Aug, [facility] [id number] [place] [address] Jul, [facility] [id number] [place] [address] Jul, [facility] [id number] [place] [address] Jun, [facility] [id number] [place] [address] Jun, [facility] [id number] [place] [address] Aug, [facility] [id number] [place] [address] Aug, [facility] [id number] [place] [address] Aug, [facility] [id number] [place] [address] Jul, [facility] [id number] [place] [address] Jul, [facility] [id number] [place] [address] Jul, [facility] [id number] [place] [address] Jun, [facility] [id number] [place] [address] Jun, [facility] [id number] [place] [address] Jun, IMMUNIZATIONS No Known Immunizations SOCIAL HISTORY [...]
--- OUTSIDE RECORDS SUMMARY | 2019-12-22 20:35 | XMS REPORT ---
Author Author Madelyn TORRES [facility] Address [address] [place] [address] Care Team Providers Care Melter Caster Name Role Phone LAKSHMI TORRES Unavailable PROBLEMS Type Condition ICD9-CM Code AMA53-WM Code Onset Dates Condition S tatus SNOMED Code Problem Cough R05 Active 26607502 Problem Hypertension I10 Active 7253228 3 Problem PAD (peripheral artery disease) I73.9 Active 721979551 Problem Mixed hyperlipidemia E78.2 Active 129296371 Problem GERD (gastroesophageal reflux disease) K21.9 Active 225383648 Problem RLS (restless legs syndrome) G25.81 A ctive 80866564 Problem Venous insufficiency I87.2 Active 98421331 Problem Dorsalgia, unspecified M54.9 Active 480497579 Problem OAB (overactive bladder) N32.81 Activ e [id number] ALLERGIES No Information ENCOUNTERS Encounter Location Date Diagnosis [place] [address] [address] Aug, Hypertension I10 [place] [address] [address] Jul, [place] [address] [address] Jul, [facility] [address] [address] May, [place] [address] [address] [place] [address] Apr, [facility] [address] [address] Apr, RLS (restless legs syndrome) G25.81 and Urinary tract infection without hematuria, site unspecified N39.0 [place] [address] [address] Mar, Urinary tract infection without hematuri a, site unspecified N39.0 [facility] [address] [place] [id number] Mar, Dysuria R30.[address] [place] [address] Feb, [place] [address] [address] Feb, Venous insufficiency I87.2 [place] [address] [address] January, Left hip pain M25.552 [place] [address] [address] Dec, [place] [address] [address] Nov, [facility] [address] [place] [id number] Nov, Encounter for Medicare annual wellness e xam Z00.00 ; Hypertension I10 ; UTI (urinary tract infection) N39.0 ; Venous insufficiency I87.2 ; OAB (overactive bladder) N32.81 ; GERD (gastroesophageal reflux disease) K21.9 and Mixed hyperlipidemia E78.[address] [address] Nov, [facility] [address] [place] [id number] Jul, Hypertension I10 ; Gastroesophageal refl ux disease without esophagitis K21.9 and PAD (peripheral artery disease) I73.9 [place] [address] [address] May, [email or web address] [address] [place] [id number] Mar, Hypertension I10 [place] [address] [address] Dec, [place] [address] [id number] [place] [address] Dec, [facility] [address] [place] [id number] Dec, Bronchitis J40 Via [facility] [email or web address] [address] [place] [id number] Oct, Hypertension I10 [place] [id number] [place] [id number] Aug, [facility] [address] [place] [id number] Jul, Cough R05 [place] [address] [address] Jul, [place] [address] [address] Jul, [facility] [address] [place] [id number] Jun, Hypertension I10 ; Gastroesophageal refl ux disease without esophagitis K21.9 ; Venous insufficiency I87.2 and OAB (overactive bladder) N32.81 [facility] [address] [place] [id number] Apr, Hypertension I10 and Venous insufficienc y I87.2 [place] [id number] [place] [id number] Apr, Encounter for other screening for malign ant neoplasm of breast Z12.39 [place] [address] [place] [id number] [place] [address] Mar, [place] [address] [address] Feb, [place] [address] [address] Feb, [place] [address] [address] January, UTI (urinary tract infection) N39.0 [place] [address] [address] January, UTI (urinary tract infection) N39.0 [facility] [address] [place] [id number] [place] [address] January, [facility] [address] [address] Dec, Bronchitis J40 Via [facility] [address] [place] [id number] Dec, Bronchitis J40 [facility] [address] [id number] [id number] Nov, [facility] [address] [id number] [place] [id number] Nov, Via [facility] [address] [place] [id number] Nov, OAB (overactive bladder) N32.81 ; Dysuri a R30.0 ; Hypertension I10 and Mixed hyperlipidemia E78.2 [facility] [address] [place] [id number] [place] [address] Oct, [facility] [address] [address] Sep, [facility] [address] [address] Sep, Via [facility] [address] [place] [id number] Aug, Hypertension I10 ; Mixed hyperlipidemia E78.2 and OAB (overactive bladder) N32.81 [facility] [address] [place] [address] [address] [place] [address] Aug, [facility] [address] [address] Aug, [facility] [address] [address] Aug, [facility] [address] [address] Jun, [facility] [address] [address] Jun, [facility] [address] [address] Jun, [facility] [address] [address] Jun, [facility] [address] [address] May, [facility] [address] [address] Apr, Encounter for other screening for malign ant neoplasm of breast Z12.39 [facility] [address] [address] Apr, Encounter for other screening for malign ant neoplasm of breast Z12.39 [facility] [address] [address] Mar, Hypertension I10 ; Acute cystitis withou t hematuria N30.00 ; Venous insufficiency I87.2 ; RLS (restless legs syndrome) G25.81 ; Dorsalgia, unspecified M54.9 and Other chronic pain G89.29 [facility] [address] [address] Feb, [facility] [address] [address] January, [facility] [address] [address] January, [facility] [address] [address] Oct, [facility] [address] [address] Aug, Dysuria R30.0 [facility] [address] [address] Aug, [facility] [address] [address] Aug, [facility] [address] [id number] [place] [address] Jul, Hypertension I10 ; UTI (urinary tract in fection) N39.0 ; GERD (gastroesophageal reflux disease) K21.9 and PAD (peripheral artery disease) I73.9 [facility] [address] [place] [id number] [place] [address] Jun, [facility] [address] [place] [id number] [place] [address] Jun, [facility] [address] [place] [id number] [place] [address] Jun, [facility] [address] [place] [id number] [place] [address] May, [facility] [address] [place] [address] [id number] [place] [address] Apr, [facility] [address] [place] [address] [id number] [place] [address] Apr, [facility] [address] [place] [id number] [place] [address] Apr, Breast cancer screening V76.10 [facility] [address] [place] [address] [id number] [place] [address] Apr, [facility] [address] [place] [address] [id number] [place] [address] Mar, [facility] [address] [place] [id number] [place] [address] Mar, [facility] [address] [place] [address] [id number] [place] [address] Mar, [facility] [address] [place] [address] [id number] [place] [address] Feb, [facility] [address] [place] [id number] [place] [address] Feb, [facility] [address] [place] [id number] [place] [address] January, [facility] [address] [id number] [place] [address] January, [facility] [address] [id number] [place] [address] January, [facility] [address] [id number] [place] [address] January, [facility] [address] [id number] [place] [address] Dec, [facility] [address] [id number] [place] [address] Dec, [facility] [address] [id number] [place] [address] Nov, [facility] [address] [id number] [place] [address] Nov, [facility] [address] [id number] [place] [address] Nov, [facility] [address] [id number] [place] [address] Nov, [facility] [address] [id number] [place] [address] Oct, [facility] [address] [id number] [place] [address] Oct, [facility] [address] [id number] [place] [address] Oct, [facility] [address] [id number] [place] [address] Oct, [facility] [address] [id number] [place] [address] Oct, [facility] [address] [id number] [place] [address] Sep, [facility] [address] [id number] [place] [address] Sep, [facility] [address] [id number] [place] [address] Sep, [facility] [address] [id number] [place] [address] Sep, [facility] [address] [id number] [place] [address] Aug, [facility] [address] [id number] [place] [address] Aug, [facility] [address] [id number] [place] [address] Aug, [facility] [address] [id number] [place] [address] Aug, [facility] [address] [id number] [place] [address] Jul, [facility] [address] [id number] [place] [address] Jul, [facility] [address] [id number] [place] [address] Jul, [facility] [address] [id number] [place] [address] Jul, [facility] [address] [id number] [place] [address] Jul, [facility] [address] [id number] [place] [address] Jul, [facility] [address] [id number] [place] [address] May, [facility] [address] [id number] [place] [address] May, [facility] [address] [place] [id number] [place] [address] May, [facility] [address] [id number] [place] [address] May, [facility] [address] [id number] [place] [address] Apr, [facility] [address] [facility] [id number] [place] [address] Apr, [facility] [address] [facility] [id number] [place] [address] Apr, [facility] [address] [facility] [id number] [place] [address] Apr, [facility] [address] [id number] [place] [address] Mar, [facility] [address] [facility] [id number] [place] [address] Mar, [facility] [address] [facility] [id number] [place] [address] Mar, [facility] [address] [id number] [place] [address] Mar, [facility] [address] [id number] [place] [address] Feb, [facility] [address] [id number] [place] [address] Feb, [facility] [address] [id number] [place] [address] Feb, [facility] [address] [id number] [place] [address] Feb, [facility] [address] [id number] [place] [address] Feb, [facility] [address] [id number] [place] [address] Feb, [facility] [address] [facility] [id number] [place] [address] January, [facility] [address] [id number] [place] [address] January, [facility] [address] [id number] [place] [address] January, [facility] [address] [id number] [place] [address] January, [facility] [address] [facility] [id number] [place] [address] January, [facility] [address] [facility] [id number] [facility] [place] [address] January, [facility] [address] [id number] [place] [address] January, [facility] [address] [id number] [place] [address] January, [facility] [address] [facility] [id number] [place] [address] Dec, [facility] [address] [id number] [place] [address] Dec, [facility] [address] [id number] [place] [address] Dec, [facility] [address] [id number] [place] [address] Dec, [facility] [address] [id number] [place] [address] Dec, [facility] [address] [id number] [place] [address] Dec, [facility] [address] [id number] [place] [address] Dec, [facility] [address] [id number] [place] [address] Dec, [facility] [address] [id number] [place] [address] Dec, [facility] [address] [id number] [place] [address] Dec, [facility] [address] [id number] [place] [address] Nov, [facility] [address] [id number] [place] [address] Nov, [facility] [address] [id number] [place] [address] Nov, [facility] [address] [facility] [id number] [place] [address] Nov, [facility] [address] [facility] [id number] [place] [address] Oct, [facility] [address] [id number] [place] [address] Oct, [facility] [address] [id number] [place] [address] Oct, [facility] [address] [facility] [id number] [place] [address] Oct, [facility] [address] [id number] [place] [address] Oct, [facility] [address] [id number] [place] [address] Oct, [facility] [address] [id number] [place] [address] Sep, [facility] [address] [id number] [place] [address] Sep, [facility] [address] [id number] [place] [address] Sep, [facility] [address] [id number] [place] [address] Sep, [facility] [address] [id number] [place] [address] Sep, [facility] [address] [facility] [id number] [place] [address] Sep, [facility] [address] [id number] [place] [address] Sep, [facility] [address] [id number] [place] [address] Sep, [facility] [address] [id number] [place] [address] Aug, [facility] [address] [id number] [place] [address] Aug, 2012 [facility] [address] [id number] [place] [address] Aug, [facility] [address] [id number] [place] [address] Aug, [facility] [address] [id number] [place] [address] Aug, [facility] [address] [id number] [place] [address] Aug, [facility] [address] [id number] [place] [address] Aug, [facility] [address] [id number] [place] [address] Aug, [facility] [address] [id number] [place] [address] 15 Jul, 2013 [facility] [address] [id number] [place] [address] 15 Jul, 2013 [facility] [address] [id number] [place] [address] Jul, [facility] [address] [id number] [place] [address] Jul, [facility] [address] [id number] [place] [address] 08 Jul, 2013 [facility] [address] [id number] [place] [address] 08 Jul, 2013 [facility] [address] [id number] [place] [address] Jul, [facility] [address] [id number] [place] [address] 07 Jul, 2013 [facility] [address] [id number] [place] [address] 07 Jul, 2013 [facility] [address] [id number] [place] [address] Jul, [facility] [address] [id number] [place] [address] Jul, [facility] [address] [id number] [place] [address] Jul, [facility] [address] [id number] [place] [address] Jul, [facility] [address] [id number] [place] [address] Jul, 2012 [facility] [address] [id number] [place] [address] Jul, [facility] [address] [id number] [place] [address] Jul, [facility] [address] [id number] [place] [address] Jul, [facility] [address] [id number] [place] [address] Jul, [facility] [address] [id number] [place] [address] Jul, [facility] [address] [id number] [place] [address] Jul, [facility] [address] [id number] [place] [address] Jun, [facility] [address] [id number] [place] [address] 30 May, 2013 [facility] [address] [id number] [place] [address] May, [facility] [address] [id number] [place] [address] Apr, [facility] [address] [id number] [place] [address] Apr, [facility] [address] [id number] [place] [address] Apr, [facility] [address] [id number] [facility] [place] [address] Mar, [facility] [address] [id number] [place] [address] Mar, [facility] [address] [id number] [place] [address] Mar, [facility] [address] [id number] [place] [address] Mar, [facility] [address] [id number] [place] [address] Mar, [facility] [address] [id number] [place] [address] Mar, [facility] [address] [id number] [place] [address] Feb, [facility] [address] [id number] [place] [address] Feb, [facility] [address] [id number] [place] [address] Feb, [facility] [address] [id number] [place] [address] Feb, [facility] [address] [id number] [place] [address] 24 Jan, 2013 [facility] [address] [id number] [place] [address] January, [facility] [address] [id number] [place] [address] Dec, [facility] [address] [id number] [place] [address] Nov, [facility] [address] [id number] [place] [address] 20 Oct, 2012 [facility] [address] [id number] [place] [address] 15 Oct, 2012 [facility] [address] [id number] [place] [address] 14 Oct, 2012 [facility] [address] [id number] [place] [address] Oct, [facility] [address] [id number] [place] [address] Oct, [facility] [address] [id number] [place] [address] Oct, [facility] [address] [id number] [place] [address] Oct, [facility] [address] [id number] [place] [address] Sep, [facility] [address] [id number] [place] [address] Sep, [facility] [address] [id number] [place] [address] Aug, [facility] [address] [id number] [place] [address] Aug, [facility] [address] [id number] [place] [address] Jul, [facility] [address] [id number] [place] [address] Jul, [facility] [address] [id number] [place] [address] Jun, [facility] [address] [id number] [place] [address] Jun, [facility] [address] [id number] [place] [address] Jun, [facility] [address] [id number] [place] [address] Jun, [facility] [address] [id number] [place] [address] Jun, [facility] [address] [id number] [place] [address] Jun, [facility] [address] [id number] [place] [address] Jun, [facility] [address] [id number] [place] [address] Jun, [facility] [address] [id number] [place] [address] Jun, [facility] [address] [id number] [place] [address] 30 May, 2011 [facility] [address] [id number] [place] [address] 25 May, 2011 [facility] [address] [id number] [place] [address] May, [facility] [address] [id number] [place] [address] May, [facility] [address] [id number] [place] [address] May, [facility] [address] [id number] [place] [address] 05 May, 2012 [facility] [address] [id number] [place] [address] Apr, [facility] [address] [id number] [place] [address] Mar, [facility] [address] [id number] [place] [address] Mar, [facility] [address] [id number] [place] [address] Mar, [facility] [address] [id number] [place] [address] Mar, [facility] [address] [id number] [place] [address] Mar, [facility] [address] [id number] [place] [address] Mar, [facility] [address] [id number] [place] [address] Mar, [facility] [address] [id number] [place] [address] Mar, [facility] [address] [id number] [place] [address] Feb, [facility] [address] [id number] [place] [address] Feb, [facility] [address] [id number] [place] [address] Feb, [facility] [address] [id number] [place] [address] January, [facility] [address] [id number] [place] [address] January, [facility] [address] [id number] [place] [address] January, [facility] [address] [id number] [place] [address] Dec, [facility] [address] [id number] [place] [address] Nov, [facility] [address] [id number] [place] [address] Nov, [facility] [address] [id number] [place] [address] Nov, [facility] [address] [id number] [place] [address] Nov, [facility] [address] [id number] [place] [address] Oct, [facility] [address] [id number] [place] [address] Oct, [facility] [address] [id number] [place] [address] Oct, [facility] [address] [id number] [place] [address] Oct, [facility] [address] [id number] [place] [address] Oct, [facility] [address] [id number] [place] [address] Oct, [facility] [address] [id number] [place] [address] Oct, [facility] [address] [id number] [place] [address] Sep, [facility] [address] [id number] [place] [address] Sep, [facility] [address] [id number] [place] [address] Sep, [facility] [id number] [place] [address] Sep, [facility] [id number] [place] [address] Sep, [facility] [id number] [place] [address] Sep, [facility] [address] [id number] [place] [address] Sep, [facility] [id number] [place] [address] Aug, [facility] [address] [id number] [place] [address] Aug, [facility] [id number] [place] [address] Jul, [facility] [address] [id number] [place] [address] Jul, [facility] [id number] [place] [address] Jul, [facility] [address] [id number] [place] [address] 24 Jun, 2011 [facility] [address] [id number] [place] [address] Nov, [facility] [id number] [place] [address] Aug, [facility] [id number] [place] [address] Aug, [facility] [address] [id number] [place] [address] Aug, [facility] [id number] [place] [address] Jul, [facility] [id number] [place] [address] Jul, [facility] [id number] [place] [address] Jun, [facility] [id number] [place] [address] Jun, [facility] [id number] [place] [address] Aug, [facility] [id number] [place] [address] Aug, [facility] [id number] [place] [address] Aug, [facility] [id number] [place] [address] Jul, [facility] [id number] [place] [address] Jul, [facility] [id number] [place] [address] Jul, [facility] [id number] [place] [address] Jun, [facility] [id number] [place] [address] Jun, [facility] [id number] [place] [address] Jun, IMMUNIZATIONS No Known Immunizations SOCIAL HISTORY [...]
--- OUTSIDE RECORDS SUMMARY | 2019-12-22 20:35 | XMS REPORT ---
Author Author Madelyn TORRES [facility] Address [address] [place] [address] Care Team Providers Care Hospice Consultant Name Role Phone LAKSHMI TORRES Unavailable PROBLEMS Type Condition ICD9-CM Code VJS97-MC Code Onset Dates Condition S tatus SNOMED Code Problem Cough R05 Active 12667011 Problem Hypertension I10 Active 0787621 3 Problem PAD (peripheral artery disease) I73.9 Active 680219394 Problem Mixed hyperlipidemia E78.2 Active 557314408 Problem GERD (gastroesophageal reflux disease) K21.9 Active 655549063 Problem RLS (restless legs syndrome) G25.81 A ctive 46758454 Problem Venous insufficiency I87.2 Active 68805812 Problem Dorsalgia, unspecified M54.9 Active 590425099 Problem OAB (overactive bladder) N32.81 Activ e [id number] ALLERGIES No Information ENCOUNTERS Encounter Location Date Diagnosis [place] [address] [address] Aug, Hypertension I10 [place] [address] [address] Jul, [place] [address] [address] Jul, [facility] [place] [address] [address] May, [place] [address] [place] [address] Apr, [facility] [place] [address] [address] Apr, RLS (restless legs syndrome) G25.81 and Urinary tract infection without hematuria, site unspecified N39.0 [place] [address] [address] Mar, Urinary tract infection without hematuri a, site unspecified N39.0 [facility] [address] [place] [id number] Mar, Dysuria R30.[address] [place] [address] Feb, [place] [address] [address] Feb, Venous insufficiency I87.2 [place] [address] [address] January, Left hip pain M25.552 [place] [address] [address] Dec, [place] [address] [address] Nov, [facility] [address] [place] [id number] Nov, Encounter for Medicare annual wellness e xam Z00.00 ; Hypertension I10 ; UTI (urinary tract infection) N39.0 ; Venous insufficiency I87.2 ; OAB (overactive bladder) N32.81 ; GERD (gastroesophageal reflux disease) K21.9 and Mixed hyperlipidemia E78.[address] [address] Nov, [facility] [address] [place] [id number] Jul, Hypertension I10 ; Gastroesophageal refl ux disease without esophagitis K21.9 and PAD (peripheral artery disease) I73.9 [place] [address] [address] May, [facility] [employer] [address] [place] [id number] Mar, Hypertension I10 [place] [address] [address] Dec, [place] [address] [id number] [place] [address] Dec, [facility] [address] [place] [id number] Dec, Bronchitis J40 [facility] [address] [place] [id number] Oct, Hypertension I10 [place] [address] [id number] [place] [id number] Aug, [facility] [address] [place] [id number] Jul, Cough R05 [place] [address] [address] Jul, [place] [address] [address] Jul, [facility] [employer] [address] [place] [id number] Jun, Hypertension I10 ; Gastroesophageal refl ux disease without esophagitis K21.9 ; Venous insufficiency I87.2 and OAB (overactive bladder) N32.81 [facility] [address] [place] [id number] Apr, Hypertension I10 and Venous insufficienc y I87.2 [place] [address] [id number] [place] [id number] Apr, Encounter for other screening for malign ant neoplasm of breast Z12.39 [place] [address] [place] [id number] [place] [address] Mar, [place] [address] [address] Feb, [place] [address] [address] Feb, [place] [address] [address] January, UTI (urinary tract infection) N39.0 [place] [address] [address] January, UTI (urinary tract infection) N39.0 [facility] [place] [address] [place] [id number] [place] [address] January, [facility] [place] [address] [address] Dec, Bronchitis J40 Via [facility] [address] [place] [id number] Dec, Bronchitis J40 [facility] [address] [id number] [id number] Nov, [facility] [address] [id number] [place] [id number] Nov, Via [facility] [address] [place] [id number] Nov, OAB (overactive bladder) N32.81 ; Dysuri a R30.0 ; Hypertension I10 and Mixed hyperlipidemia E78.2 [facility] [place] [address] [place] [address] [id number] [place] [address] Oct, [facility] [place] [address] [address] Sep, [facility] [place] [address] [address] Sep, Via [facility] [employer] [address] [place] [id number] Aug, Hypertension I10 ; Mixed hyperlipidemia E78.2 and OAB (overactive bladder) N32.81 [facility] [place] [address] [place] [id number] [place] [address] Aug, [facility] [place] [address] [address] Aug, [facility] [place] [address] [address] Aug, [facility] [place] [address] [address] Jun, [facility] [place] [address] [address] Jun, [facility] [place] [address] [address] Jun, [facility] [place] [address] [address] Jun, [facility] [place] [address] [address] May, [facility] [place] [address] [address] Apr, Encounter for other screening for malign ant neoplasm of breast Z12.39 [facility] [place] [address] [address] Apr, Encounter for other screening for malign ant neoplasm of breast Z12.39 [facility] [place] [address] [address] Mar, Hypertension I10 ; Acute cystitis withou t hematuria N30.00 ; Venous insufficiency I87.2 ; RLS (restless legs syndrome) G25.81 ; Dorsalgia, unspecified M54.9 and Other chronic pain G89.29 [facility] [place] [address] [address] Feb, [facility] [place] [address] [address] January, [facility] [place] [address] [address] January, [facility] [place] [address] [address] Oct, [facility] [place] [address] [address] Aug, Dysuria R30.0 [facility] [place] [address] [address] Aug, [facility] [place] [address] [address] Aug, [facility] [place] [address] [id number] [place] [address] Jul, Hypertension I10 ; UTI (urinary tract in fection) N39.0 ; GERD (gastroesophageal reflux disease) K21.9 and PAD (peripheral artery disease) I73.9 [facility] [place] [address] [place] [id number] [place] [address] Jun, [facility] [place] [address] [place] [id number] [place] [address] Jun, [facility] [place] [address] [place] [id number] [place] [address] Jun, [facility] [place] [address] [place] [id number] [place] [address] May, [facility] [place] [address] [place] [id number] [place] [address] Apr, [facility] [place] [address] [place] [address] [id number] [place] [address] Apr, [facility] [place] [address] [place] [address] [id number] [place] [address] Apr, Breast cancer screening V76.10 [facility] [place] [address] [place] [address] [id number] [place] [address] Apr, [facility] [place] [address] [place] [address] [id number] [place] [address] Mar, [facility] [place] [address] [place] [id number] [place] [address] Mar, [facility] [place] [address] [place] [id number] [place] [address] Mar, [facility] [place] [address] [place] [address] [id number] [place] [address] Feb, [facility] [place] [address] [place] [address] [id number] [place] [address] Feb, [facility] [place] [address] [place] [id number] [place] [address] January, [facility] [address] [id number] [place] [address] January, [facility] [address] [id number] [place] [address] January, [facility] [address] [id number] [place] [address] January, [facility] [address] [id number] [place] [address] Dec, [facility] [address] [id number] [place] [address] Dec, [facility] [address] [id number] [place] [address] Nov, [facility] [address] [id number] [place] [address] Nov, [facility] [address] [id number] [place] [address] Nov, [facility] [address] [id number] [place] [address] Nov, [facility] [address] [id number] [place] [address] Oct, [facility] [address] [id number] [place] [address] Oct, [facility] [address] [id number] [place] [address] Oct, [facility] [address] [id number] [place] [address] Oct, [facility] [address] [id number] [place] [address] Oct, [facility] [address] [id number] [place] [address] Sep, [facility] [address] [id number] [place] [address] Sep, [facility] [address] [id number] [place] [address] Sep, [facility] [address] [id number] [place] [address] Sep, [facility] [address] [id number] [place] [address] Aug, [facility] [address] [id number] [place] [address] Aug, [facility] [address] [id number] [place] [address] Aug, [facility] [address] [id number] [place] [address] Aug, [facility] [address] [id number] [place] [address] Jul, [facility] [address] [id number] [place] [address] Jul, [facility] [address] [id number] [place] [address] Jul, [facility] [address] [id number] [place] [address] Jul, [facility] [address] [id number] [place] [address] Jul, [facility] [address] [id number] [place] [address] Jul, [facility] [address] [id number] [place] [address] May, [facility] [address] [id number] [place] [address] May, [facility] [address] [place] [id number] [place] [address] May, [facility] [address] [id number] [place] [address] May, [facility] [address] [id number] [place] [address] Apr, [facility] [address] [facility] [id number] [place] [address] Apr, [facility] [address] [facility] [id number] [place] [address] Apr, [facility] [address] [facility] [id number] [place] [address] Apr, [facility] [address] [id number] [place] [address] Mar, [facility] [address] [facility] [id number] [place] [address] Mar, [facility] [address] [facility] [id number] [place] [address] Mar, [facility] [address] [id number] [place] [address] Mar, [facility] [address] [id number] [place] [address] Feb, [facility] [address] [id number] [place] [address] Feb, [facility] [address] [id number] [place] [address] Feb, [facility] [address] [id number] [place] [address] Feb, [facility] [address] [id number] [place] [address] Feb, [facility] [address] [id number] [place] [address] Feb, [facility] [address] [facility] [id number] [place] [address] January, [facility] [address] [id number] [place] [address] January, [facility] [address] [id number] [place] [address] January, [facility] [address] [id number] [place] [address] January, [facility] [address] [facility] [id number] [place] [address] January, [facility] [address] [facility] [id number] [place] [address] January, [facility] [address] [id number] [place] [address] January, [facility] [address] [id number] [place] [address] January, [facility] [address] [facility] [id number] [place] [address] Dec, [facility] [address] [id number] [place] [address] Dec, [facility] [address] [id number] [place] [address] Dec, [facility] [address] [id number] [place] [address] Dec, [facility] [address] [id number] [place] [address] Dec, [facility] [address] [id number] [place] [address] Dec, [facility] [address] [id number] [place] [address] Dec, [facility] [address] [id number] [place] [address] Dec, [facility] [address] [id number] [place] [address] Dec, [facility] [address] [id number] [place] [address] Dec, [facility] [address] [id number] [place] [address] Nov, [facility] [address] [id number] [place] [address] Nov, [facility] [address] [id number] [place] [address] Nov, [facility] [address] [facility] [id number] [place] [address] Nov, [facility] [address] [facility] [id number] [place] [address] Oct, [facility] [address] [id number] [place] [address] Oct, [facility] [address] [id number] [place] [address] Oct, [facility] [address] [facility] [id number] [place] [address] Oct, [facility] [address] [id number] [place] [address] Oct, [facility] [address] [id number] [place] [address] Oct, [facility] [address] [id number] [place] [address] Sep, [facility] [address] [id number] [place] [address] Sep, [facility] [address] [id number] [place] [address] Sep, [facility] [address] [id number] [place] [address] Sep, [facility] [address] [id number] [place] [address] Sep, [facility] [address] [facility] [id number] [place] [address] Sep, [facility] [address] [id number] [place] [address] Sep, [facility] [address] [id number] [place] [address] Sep, [facility] [address] [id number] [place] [address] Aug, [facility] [address] [id number] [place] [address] Aug, 2012 [facility] [address] [id number] [place] [address] Aug, [facility] [address] [id number] [place] [address] Aug, [facility] [address] [id number] [place] [address] Aug, [facility] [address] [id number] [place] [address] Aug, [facility] [address] [id number] [place] [address] Aug, [facility] [address] [id number] [place] [address] Aug, [facility] [address] [id number] [place] [address] 15 Jul, 2013 [facility] [address] [id number] [place] [address] 15 Jul, 2013 [facility] [address] [id number] [place] [address] Jul, [facility] [address] [id number] [place] [address] Jul, [facility] [address] [id number] [place] [address] 08 Jul, 2013 [facility] [address] [id number] [place] [address] 08 Jul, 2013 [facility] [address] [id number] [place] [address] Jul, [facility] [address] [id number] [place] [address] 07 Jul, 2013 [facility] [address] [id number] [place] [address] 07 Jul, 2013 [facility] [address] [id number] [place] [address] Jul, [facility] [address] [id number] [place] [address] Jul, [facility] [address] [id number] [place] [address] Jul, [facility] [address] [id number] [place] [address] Jul, [facility] [address] [id number] [place] [address] Jul, 2012 [facility] [address] [id number] [place] [address] Jul, [facility] [address] [id number] [place] [address] Jul, [facility] [address] [id number] [place] [address] Jul, [facility] [address] [id number] [place] [address] Jul, [facility] [address] [id number] [place] [address] Jul, [facility] [address] [id number] [place] [address] Jul, [facility] [address] [id number] [place] [address] Jun, [facility] [address] [id number] [place] [address] 30 May, 2013 [facility] [address] [id number] [place] [address] May, [facility] [address] [id number] [place] [address] Apr, [facility] [address] [id number] [place] [address] Apr, [facility] [address] [id number] [place] [address] Apr, [facility] [address] [id number] [place] [address] Mar, [facility] [id number] [place] [address] Mar, [facility] [address] [id number] [place] [address] Mar, [facility] [address] [id number] [place] [address] Mar, [facility] [address] [id number] [place] [address] Mar, [facility] [address] [id number] [place] [address] Mar, [facility] [address] [id number] [place] [address] Feb, [facility] [address] [id number] [place] [address] Feb, [facility] [address] [id number] [place] [address] Feb, [facility] [address] [id number] [place] [address] Feb, [facility] [address] [id number] [place] [address] 24 Jan, 2013 [facility] [address] [id number] [place] [address] January, [facility] [address] [id number] [place] [address] Dec, [facility] [address] [id number] [place] [address] Nov, [facility] [address] [id number] [place] [address] 20 Oct, 2012 [facility] [address] [id number] [place] [address] 15 Oct, 2012 [facility] [address] [id number] [place] [address] 14 Oct, 2012 [facility] [address] [id number] [place] [address] Oct, [facility] [address] [id number] [place] [address] Oct, [facility] [address] [id number] [place] [address] Oct, [facility] [address] [id number] [place] [address] Oct, [facility] [address] [id number] [place] [address] Sep, [facility] [address] [id number] [place] [address] Sep, [facility] [address] [id number] [place] [address] Aug, [facility] [address] [id number] [place] [address] Aug, [facility] [address] [id number] [place] [address] Jul, [facility] [address] [id number] [place] [address] Jul, [facility] [address] [id number] [place] [address] Jun, [facility] [address] [id number] [place] [address] Jun, [facility] [address] [id number] [place] [address] Jun, [facility] [address] [id number] [place] [address] Jun, [facility] [address] [id number] [place] [address] Jun, [facility] [address] [id number] [place] [address] Jun, [facility] [address] [id number] [place] [address] Jun, [facility] [address] [id number] [place] [address] Jun, [facility] [address] [id number] [place] [address] Jun, [facility] [address] [id number] [place] [address] 30 May, 2011 [facility] [address] [id number] [place] [address] 25 May, 2011 [facility] [address] [id number] [place] [address] May, [facility] [address] [id number] [place] [address] May, [facility] [address] [id number] [place] [address] May, [facility] [address] [id number] [place] [address] 05 May, 2012 [facility] [address] [id number] [place] [address] Apr, [facility] [address] [id number] [place] [address] Mar, [facility] [address] [id number] [place] [address] Mar, [facility] [address] [id number] [place] [address] Mar, [facility] [address] [id number] [place] [address] Mar, [facility] [address] [id number] [place] [address] Mar, [facility] [address] [id number] [place] [address] Mar, [facility] [address] [id number] [place] [address] Mar, [facility] [address] [id number] [place] [address] Mar, [facility] [address] [id number] [place] [address] Feb, [facility] [address] [id number] [place] [address] Feb, [facility] [address] [id number] [place] [address] Feb, [facility] [address] [id number] [place] [address] January, [facility] [address] [id number] [place] [address] January, [facility] [address] [id number] [place] [address] January, [facility] [address] [id number] [place] [address] Dec, [facility] [address] [id number] [place] [address] Nov, [facility] [address] [id number] [place] [address] Nov, [facility] [address] [id number] [place] [address] Nov, [facility] [address] [id number] [place] [address] Nov, [facility] [address] [id number] [place] [address] Oct, [facility] [address] [id number] [place] [address] Oct, [facility] [address] [id number] [place] [address] Oct, [facility] [address] [id number] [place] [address] Oct, [facility] [address] [id number] [place] [address] Oct, [facility] [address] [id number] [place] [address] Oct, [facility] [address] [id number] [place] [address] Oct, [facility] [address] [id number] [place] [address] Sep, [facility] [address] [id number] [place] [address] Sep, [facility] [address] [id number] [place] [address] Sep, [facility] [id number] [place] [address] Sep, [facility] [id number] [place] [address] Sep, [facility] [id number] [place] [address] Sep, [facility] [address] [id number] [place] [address] Sep, [facility] [id number] [place] [address] Aug, [facility] [address] [id number] [place] [address] Aug, [facility] [id number] [place] [address] Jul, [facility] [address] [id number] [place] [address] Jul, [facility] [id number] [place] [address] Jul, [facility] [address] [id number] [place] [address] 24 Jun, 2011 [facility] [address] [id number] [place] [address] Nov, [facility] [id number] [place] [address] Aug, [facility] [place] [id number] [place] [address] Aug, [facility] [place] [address] [id number] [place] [address] Aug, [facility] [place] [id number] [place] [address] Jul, [facility] [place] [id number] [place] [address] Jul, [facility] [place] [id number] [place] [address] Jun, [facility] [place] [id number] [place] [address] Jun, [facility] [place] [id number] [place] [address] Aug, [facility] [place] [id number] [place] [address] Aug, [facility] [place] [id number] [place] [address] Aug, [facility] [place] [id number] [place] [address] Jul, [facility] [place] [id number] [place] [address] Jul, [facility] [place] [id number] [place] [address] Jul, [facility] [place] [id number] [place] [address] Jun, [facility] [place] [id number] [place] [address] Jun, [facility] [place] [id number] [place] [address] Jun, IMMUNIZATIONS No Known Immunizations SOCIAL HISTORY [...]
--- OUTSIDE RECORDS SUMMARY | 2019-12-22 20:36 | XMS REPORT ---
Author Author Madelyn TORRES [facility] Address [address] [place] [address] Care Team Providers Care Emr Trainer Name Role Phone LAKSHMI TORRES Unavailable PROBLEMS Type Condition ICD9-CM Code REJ45-CX Code Onset Dates Condition S tatus SNOMED Code Problem Cough R05 Active 97554472 Problem Hypertension I10 Active 2041942 3 Problem PAD (peripheral artery disease) I73.9 Active 084474562 Problem Mixed hyperlipidemia E78.2 Active 451278504 Problem GERD (gastroesophageal reflux disease) K21.9 Active 545560302 Problem RLS (restless legs syndrome) G25.81 A ctive 33153601 Problem Venous insufficiency I87.2 Active 70729543 Problem Dorsalgia, unspecified M54.9 Active 073487878 Problem OAB (overactive bladder) N32.81 Activ e [id number] ALLERGIES No Information ENCOUNTERS Encounter Location Date Diagnosis [place] [address] [address] Aug, Hypertension I10 [place] [address] [address] Jul, [place] [address] [address] Jul, [facility] [address] [address] May, [place] [address] [address] [place] [address] Apr, [facility] [address] [address] Apr, RLS (restless legs syndrome) G25.81 and Urinary tract infection without hematuria, site unspecified N39.0 [place] [address] [address] Mar, Urinary tract infection without hematuri a, site unspecified N39.0 Via [facility] [address] [place] [id number] Mar, Dysuria R30.[address] [place] [address] Feb, [place] [address] [address] Feb, Venous insufficiency I87.2 [place] [address] [address] January, Left hip pain M25.552 [place] [address] [address] Dec, [place] [address] [address] Nov, Via [employer] [address] [place] [id number] Nov, Encounter for Medicare annual wellness e xam Z00.00 ; Hypertension I10 ; UTI (urinary tract infection) N39.0 ; Venous insufficiency I87.2 ; OAB (overactive bladder) N32.81 ; GERD (gastroesophageal reflux disease) K21.9 and Mixed hyperlipidemia E78.[address] [address] Nov, Via [facility] [address] [place] [id number] Jul, Hypertension I10 ; Gastroesophageal refl ux disease without esophagitis K21.9 and PAD (peripheral artery disease) I73.9 [place] [address] [address] May, Via [facility] [address] [place] [id number] Mar, Hypertension I10 [place] [address] [address] Dec, [place] [address] [id number] [place] [address] Dec, Via [facility] [address] [place] [id number] Dec, Bronchitis J40 Via [facility] [address] [place] [address] Oct, Hypertension I10 [place] [address] [id number] [id number] Aug, Via [facility] [address] [place] [id number] Jul, Cough R05 [place] [address] [address] Jul, [place] [address] [address] Jul, Via [facility] [address] [place] [id number] Jun, Hypertension I10 ; Gastroesophageal refl ux disease without esophagitis K21.9 ; Venous insufficiency I87.2 and OAB (overactive bladder) N32.81 Via [facility] [address] [place] [address] Apr, Hypertension I10 and Venous insufficienc y I87.2 [place] [address] [id number] [place] [address] Apr, Encounter for other screening for malign ant neoplasm of breast Z12.39 [place] [address] [address] [place] [address] [place] [address] Mar, [place] [address] [address] Feb, [place] [address] [address] Feb, [place] [address] [address] January, UTI (urinary tract infection) N39.0 [place] [address] [address] January, UTI (urinary tract infection) N39.0 [facility] [address] [place] [id number] [place] [address] January, [facility] [address] [address] Dec, Bronchitis J40 Via [facility] [address] [place] [id number] Dec, Bronchitis J40 [facility] [address] [id number] [address] Nov, [facility] [address] [id number] [place] [address] Nov, [facility] [address] [place] [address] Nov, OAB (overactive bladder) N32.81 ; Dysuri a R30.0 ; Hypertension I10 and Mixed hyperlipidemia E78.2 [facility] [address] [place] [address] [place] [address] Oct, [facility] [address] [address] Sep, [facility] [address] [address] Sep, Via [facility] [address] [place] [address] Aug, Hypertension I10 ; Mixed hyperlipidemia E78.2 and OAB (overactive bladder) N32.81 [facility] [address] [place] [address] [place] [address] Aug, [facility] [address] [address] Aug, [facility] [address] [address] Aug, [facility] [address] [address] Jun, [facility] [address] [address] Jun, [facility] [address] [address] Jun, [facility] [address] [address] Jun, [facility] [address] [address] May, [facility] [address] [address] Apr, Encounter for other screening for malign ant neoplasm of breast Z12.39 [facility] [address] [address] Apr, Encounter for other screening for malign ant neoplasm of breast Z12.39 [facility] [address] [address] Mar, Hypertension I10 ; Acute cystitis withou t hematuria N30.00 ; Venous insufficiency I87.2 ; RLS (restless legs syndrome) G25.81 ; Dorsalgia, unspecified M54.9 and Other chronic pain G89.29 [facility] [address] [address] Feb, [facility] [address] [address] January, [facility] [address] [address] January, [facility] [address] [address] Oct, [facility] [address] [address] Aug, Dysuria R30.0 [facility] [address] [address] Aug, [facility] [address] [address] Aug, [facility] [address] [id number] [place] [address] Jul, Hypertension I10 ; UTI (urinary tract in fection) N39.0 ; GERD (gastroesophageal reflux disease) K21.9 and PAD (peripheral artery disease) I73.9 [facility] [address] [place] [id number] [place] [address] Jun, [facility] [address] [place] [id number] [place] [address] Jun, [facility] [address] [place] [id number] [place] [address] Jun, [facility] [address] [place] [id number] [place] [address] May, [facility] [address] [place] [id number] [place] [address] Apr, [facility] [address] [place] [id number] [place] [address] Apr, [facility] [address] [place] [id number] [place] [address] Apr, Breast cancer screening V76.10 [facility] [address] [place] [id number] [place] [address] Apr, [facility] [address] [place] [id number] [place] [address] Mar, [facility] [address] [place] [id number] [place] [address] Mar, [facility] [address] [place] [id number] [place] [address] Mar, [facility] [address] [place] [id number] [place] [address] Feb, [facility] [address] [place] [id number] [place] [address] Feb, [facility] [address] [place] [id number] [place] [address] January, [facility] [address] [id number] [place] [address] January, [facility] [address] [id number] [place] [address] January, [facility] [address] [id number] [place] [address] January, [facility] [address] [id number] [place] [address] Dec, [facility] [address] [id number] [place] [address] Dec, [facility] [address] [id number] [place] [address] Nov, [facility] [address] [id number] [place] [address] Nov, [facility] [address] [id number] [place] [address] Nov, [facility] [address] [id number] [place] [address] Nov, [facility] [address] [id number] [place] [address] Oct, [facility] [address] [id number] [place] [address] Oct, [facility] [address] [id number] [place] [address] Oct, [facility] [address] [id number] [place] [address] Oct, [facility] [address] [id number] [place] [address] Oct, [facility] [address] [id number] [place] [address] Sep, [facility] [address] [id number] [place] [address] Sep, [facility] [address] [id number] [place] [address] Sep, [facility] [address] [id number] [place] [address] Sep, [facility] [address] [id number] [place] [address] Aug, [facility] [address] [id number] [place] [address] Aug, [facility] [address] [id number] [place] [address] Aug, [facility] [address] [id number] [place] [address] Aug, [facility] [address] [id number] [place] [address] Jul, [facility] [address] [id number] [place] [address] Jul, [facility] [address] [id number] [place] [address] Jul, [facility] [address] [id number] [place] [address] Jul, [facility] [address] [id number] [place] [address] Jul, [facility] [address] [id number] [place] [address] Jul, [facility] [address] [id number] [place] [address] May, [facility] [address] [id number] [place] [address] May, [facility] [address] [place] [id number] [place] [address] May, [facility] [address] [id number] [place] [address] May, [facility] [address] [id number] [place] [address] Apr, [facility] [address] [facility] [id number] [place] [address] Apr, [facility] [address] [facility] [id number] [place] [address] Apr, [facility] [address] [facility] [id number] [place] [address] Apr, [facility] [address] [id number] [place] [address] Mar, [facility] [address] [facility] [id number] [place] [address] Mar, [facility] [address] [facility] [id number] [place] [address] Mar, [facility] [address] [id number] [place] [address] Mar, [facility] [address] [id number] [place] [address] Feb, [facility] [address] [id number] [place] [address] Feb, [facility] [address] [id number] [place] [address] Feb, [facility] [address] [id number] [place] [address] Feb, [facility] [address] [id number] [place] [address] Feb, [facility] [address] [id number] [place] [address] Feb, [facility] [address] [facility] [id number] [place] [address] January, [facility] [address] [id number] [place] [address] January, [facility] [address] [id number] [place] [address] January, [facility] [address] [id number] [place] [address] January, [facility] [address] [facility] [id number] [place] [address] January, [facility] [address] [facility] [id number] [facility] [place] [address] January, [facility] [address] [id number] [place] [address] January, [facility] [address] [id number] [place] [address] January, [facility] [address] [facility] [id number] [place] [address] Dec, [facility] [address] [id number] [place] [address] Dec, [facility] [address] [id number] [place] [address] Dec, [facility] [address] [id number] [place] [address] Dec, [facility] [address] [id number] [place] [address] Dec, [facility] [address] [id number] [place] [address] Dec, [facility] [address] [id number] [place] [address] Dec, [facility] [address] [id number] [place] [address] Dec, [facility] [address] [id number] [place] [address] Dec, [facility] [address] [id number] [place] [address] Dec, [facility] [address] [id number] [place] [address] Nov, [facility] [address] [id number] [place] [address] Nov, [facility] [address] [id number] [place] [address] Nov, [facility] [address] [facility] [id number] [place] [address] Nov, [facility] [address] [facility] [id number] [place] [address] Oct, [facility] [address] [id number] [place] [address] Oct, [facility] [address] [id number] [place] [address] Oct, [facility] [address] [facility] [id number] [place] [address] Oct, [facility] [address] [id number] [place] [address] Oct, [facility] [address] [id number] [place] [address] Oct, [facility] [address] [id number] [place] [address] Sep, [facility] [address] [id number] [place] [address] Sep, [facility] [address] [id number] [place] [address] Sep, [facility] [address] [id number] [place] [address] Sep, [facility] [address] [id number] [place] [address] Sep, [facility] [address] [facility] [id number] [place] [address] Sep, [facility] [address] [id number] [place] [address] Sep, [facility] [address] [id number] [place] [address] Sep, [facility] [address] [id number] [place] [address] Aug, [facility] [address] [id number] [place] [address] Aug, 2012 [facility] [address] [id number] [place] [address] Aug, [facility] [address] [id number] [place] [address] Aug, [facility] [address] [id number] [place] [address] Aug, [facility] [address] [id number] [place] [address] Aug, [facility] [address] [id number] [place] [address] Aug, [facility] [address] [id number] [place] [address] Aug, [facility] [address] [id number] [place] [address] 15 Jul, 2013 [facility] [address] [id number] [place] [address] 15 Jul, 2013 [facility] [address] [id number] [place] [address] Jul, [facility] [address] [id number] [place] [address] Jul, [facility] [address] [id number] [place] [address] 08 Jul, 2013 [facility] [address] [id number] [place] [address] 08 Jul, 2013 [facility] [address] [id number] [place] [address] Jul, [facility] [address] [id number] [place] [address] 07 Jul, 2013 [facility] [address] [id number] [place] [address] 07 Jul, 2013 [facility] [address] [id number] [place] [address] Jul, [facility] [address] [id number] [place] [address] Jul, [facility] [address] [id number] [place] [address] Jul, [facility] [address] [id number] [place] [address] Jul, [facility] [address] [id number] [place] [address] Jul, 2012 [facility] [address] [id number] [place] [address] Jul, [facility] [address] [id number] [place] [address] Jul, [facility] [address] [id number] [place] [address] Jul, [facility] [address] [id number] [place] [address] Jul, [facility] [address] [id number] [place] [address] Jul, [facility] [address] [id number] [place] [address] Jul, [facility] [address] [id number] [place] [address] Jun, [facility] [address] [id number] [place] [address] 30 May, 2013 [facility] [address] [id number] [place] [address] May, [facility] [address] [id number] [place] [address] Apr, [facility] [address] [id number] [place] [address] Apr, [facility] [address] [id number] [place] [address] Apr, [facility] [id number] [facility] [place] [address] Mar, [facility] [address] [id number] [place] [address] Mar, [facility] [id number] [place] [address] Mar, [facility] [id number] [place] [address] Mar, [facility] [id number] [place] [address] Mar, [facility] [id number] [place] [address] Mar, [facility] [id number] [place] [address] Feb, [facility] [id number] [place] [address] Feb, [facility] [id number] [place] [address] Feb, [facility] [id number] [place] [address] Feb, [facility] [id number] [place] [address] 24 Jan, 2013 [facility] [id number] [place] [address] January, [facility] [id number] [place] [address] Dec, [facility] [id number] [place] [address] Nov, [facility] [id number] [place] [address] 20 Oct, 2012 [facility] [id number] [place] [address] 15 Oct, 2012 [facility] [id number] [place] [address] 14 Oct, 2012 [facility] [id number] [place] [address] Oct, [facility] [id number] [place] [address] Oct, [facility] [id number] [place] [address] Oct, [facility] [id number] [place] [address] Oct, [facility] [id number] [place] [address] Sep, [facility] [id number] [place] [address] Sep, [facility] [id number] [place] [address] Aug, [facility] [id number] [place] [address] Aug, [facility] [id number] [place] [address] Jul, [facility] [id number] [place] [address] Jul, [facility] [id number] [place] [address] Jun, [facility] [id number] [place] [address] Jun, [facility] [id number] [place] [address] Jun, [facility] [id number] [place] [address] Jun, [facility] [id number] [place] [address] Jun, [facility] [id number] [place] [address] Jun, [facility] [id number] [place] [address] Jun, [facility] [address] [id number] [place] [address] Jun, [facility] [id number] [place] [address] Jun, [facility] [id number] [place] [address] 30 May, 2011 [facility] [id number] [place] [address] 25 May, 2011 [facility] [address] [id number] [place] [address] May, [facility] [id number] [place] [address] May, [facility] [id number] [place] [address] May, [facility] [id number] [place] [address] 05 May, 2012 [facility] [id number] [place] [address] Apr, [facility] [id number] [place] [address] Mar, [facility] [id number] [place] [address] Mar, [facility] [id number] [place] [address] Mar, [facility] [id number] [place] [address] Mar, [facility] [id number] [place] [address] Mar, [facility] [id number] [place] [address] Mar, [facility] [id number] [place] [address] Mar, [facility] [id number] [place] [address] Mar, [facility] [id number] [place] [address] Feb, [facility] [id number] [place] [address] Feb, [facility] [id number] [place] [address] Feb, [facility] [id number] [place] [address] January, [facility] [id number] [place] [address] January, [facility] [id number] [place] [address] January, [facility] [id number] [place] [address] Dec, [facility] [id number] [place] [address] Nov, [facility] [id number] [place] [address] Nov, [facility] [id number] [place] [address] Nov, [facility] [id number] [place] [address] Nov, [facility] [id number] [place] [address] Oct, [facility] [id number] [place] [address] Oct, [facility] [id number] [place] [address] Oct, [facility] [id number] [place] [address] Oct, [facility] [id number] [place] [address] Oct, [facility] [id number] [place] [address] Oct, [facility] [id number] [place] [address] Oct, [facility] [id number] [place] [address] Sep, [facility] [id number] [place] [address] Sep, [facility] [id number] [place] [address] Sep, [facility] [id number] [place] [address] Sep, [facility] [id number] [place] [address] Sep, [facility] [id number] [place] [address] Sep, [facility] [id number] [place] [address] Sep, [facility] [id number] [place] [address] Aug, [facility] [id number] [place] [address] Aug, [facility] [id number] [place] [address] Jul, [facility] [id number] [place] [address] Jul, [facility] [id number] [place] [address] Jul, [facility] [id number] [place] [address] 24 Jun, 2011 [facility] [id number] [place] [address] Nov, [facility] [id number] [place] [address] Aug, [facility] [id number] [place] [address] Aug, [facility] [id number] [place] [address] Aug, [facility] [id number] [place] [address] Jul, [facility] [id number] [place] [address] Jul, [facility] [id number] [place] [address] Jun, [facility] [id number] [place] [address] Jun, [facility] [id number] [place] [address] Aug, [facility] [id number] [place] [address] Aug, [facility] [id number] [place] [address] Aug, [facility] [id number] [place] [address] Jul, [facility] [id number] [place] [address] Jul, [facility] [id number] [place] [address] Jul, [facility] [id number] [place] [address] Jun, [facility] [id number] [place] [address] Jun, [facility] [id number] [place] [address] Jun, IMMUNIZATIONS No Known Immunizations SOCIAL HISTORY [...]
--- NOTE | 2019-12-22 20:38 | Diagnostic Imaging Report ---
PROCEDURE: CT head and CT cervical spine without contrast. TECHNIQUE: Multiple contiguous axial images were obtained through the brain and cervical spine without the use of intravenous contrast. Sagittal and coronal reformations through the cervical spine were then performed. Auto Exposure Controls were utilized during the CT exam to meet ALARA standards for radiation dose reduction. INDICATION: Fall, head injury. Struck right posterior head. COMPARISON: Correlation made with prior brain MRI from March 192008. FINDINGS: High right posterior parietal soft tissue laceration is present with a small degree of underlying edema. There is no significant hematoma or underlying calvarial fracture. The intracranial contents demonstrate age-related global volume loss with moderate to advanced chronic microvascular changes within the white matter. 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 There are no findings of territorial loss of -white differentiation. There are remote lacunar infarcts in the basal ganglia, bilaterally. No findings of acute hemorrhage, mass effect or hydrocephalus. There is no abnormality extra-axial fluid collection. The basilar cisterns appear patent. Posterior fossa demonstrates low-density remote-appearing right cerebellar lacunar infarct. Mastoid air vessels are clear. There are no fluid levels within the paranasal sinuses. Cervical spine demonstrates a slight degenerative anterolisthesis of C4 on 5 and also of C7 on T1. This is due to facet arthropathy. Alignment is otherwise normal. Craniocervical junction relationships are maintained. The lateral masses of C1 and C2 demonstrate normal relationships. The facets are normally aligned. There are no findings of facet joint or disc space widening. The vertebral body heights are maintained. There are no findings of an acute cervical spine fracture. Lung apices demonstrate some pleural-parenchymal scarring at the left lung apex. Soft tissues of the neck demonstrate no acute process. There are bilateral thyroid nodules. There are atherosclerotic calcifications at both of the carotid bifurcations. IMPRESSION: 1. Age related global volume loss with moderate to advanced chronic microvascular changes within the white matter as well as remote lacunar infarcts within the basal ganglia and right cerebellum. There has also been a prior small infarct in the right occipital lobe which appears remote. 2. No findings of hemorrhage, mass effect or hydrocephalus. There is no abnormal extra-axial collection. 3. Right parietal soft tissue laceration without underlying calvarial fracture. 4. Cervical degenerative disc disease and facet arthropathy without CT findings of acute cervical spine fracture or traumatic malalignment. 5. Bilateral thyroid nodules. 6. Atherosclerosis. Dictated by: Dictated on workstation # [id number]
--- OUTSIDE RECORDS SUMMARY | 2019-12-22 20:41 | XMS REPORT | Continuity of Care Document ---
Author Organization Unknown Address Unknown Phone Unavailable Allergies Active Description Code Type Severity Reaction Onset Reported/Identified Relationship to Patient Clinical Status Yes Alendronic Acid [id number] D rug Allergy Unknown N/A 12/01/2006 Yes Fosamax Drug Allergy 09/04/2009 Yes Fosamax Drug Allergy N/A N/A 09/04/2009 Medications There is no data. Problems Date Dx Coded Attending Type Code Diagnosis Diagnosed By 06/13/2008 LAKSHMI TORRES DO 272.4 HYPERLIPIDEMIA HYPERLIPOPROTEINEMIAS (Old Classification) 06/13/2008 LAKSHMI TORRES DO K 401.1 ESSENTIAL HYPERTENSION BENIGN 06/13/2008 LAKSHMI TORRES DO K 611.72 LUMP OR MASS IN BREAST 06/13/2008 LAKSHMI TORRES DO 272.4 HYPERLIPIDEMIA HYPERLIPOPROTEINEMIAS (Old Classification) 06/13/2008 LAKSHMI TORRES DO K 401.1 ESSENTIAL HYPERTENSION BENIGN 06/13/2008 LAKSHMI TORRES DO K 611.72 LUMP OR MASS IN BREAST 06/13/2008 LAKSHMI TORRES DO K 272.4 HYPERLIPIDEMIA HYPERLIPOPROTEINEMIAS (Old Classification) 06/13/2008 BRENNEN TORRES DOA K 401.1 ESSENTIAL HYPERTENSION BENIGN 06/13/2008 BRENNEN TORRES DOA K 611.72 LUMP OR MASS IN BREAST 06/13/2008 LAKSHMI TORRES DO 272.4 HYPERLIPIDEMIA HYPERLIPOPROTEINEMIAS (Old Classification) 06/13/2008 BRENNEN TORRES DOA K 401.1 ESSENTIAL HYPERTENSION BENIGN 06/13/2008 LAKSHMI TORRES DO K 611.72 LUMP OR MASS IN BREAST 06/13/2008 KIMO HAYNES MD 272.4 HYPERLIPIDEMIA HYPERLIPOPROTEINEMIAS (Old Classification) 06/13/2008 KIMO HAYNES MD 401.1 ESSENTIAL HYPERTENSION BENIGN 06/13/2008 KIMO HAYNES MD 611.7 2 LUMP OR MASS IN BREAST 06/13/2008 KIMO HAYNES MD 272.4 HYPERLIPIDEMIA HYPERLIPOPROTEINEMIAS (Old Classification) 06/13/2008 KIMO HAYNES MD 401.1 ESSENTIAL HYPERTENSION BENIGN 06/13/2008 KIMO HAYNES MD 611.7 2 LUMP OR MASS IN BREAST 06/13/2008 KIMO HAYNES MD 272.4 HYPERLIPIDEMIA HYPERLIPOPROTEINEMIAS (Old Classification) 06/13/2008 KIMO HAYNES MD 401.1 ESSENTIAL HYPERTENSION BENIGN 06/13/2008 KIMO HAYNES MD 611.7 2 LUMP OR MASS IN BREAST 06/13/2008 KIMO HAYNES MD 272.4 HYPERLIPIDEMIA HYPERLIPOPROTEINEMIAS (Old Classification) 06/13/2008 KIMO HAYNES MD 401.1 ESSENTIAL HYPERTENSION BENIGN 06/13/2008 KIMO HAYNES MD 611.7 2 LUMP OR MASS IN BREAST 02/21/2009 TORRES DO, LAKSHMI K 276.1 HYPONATREMIA 02/21/2009 TORRES DO, LAKSHMI K 414.01 CORONARY ARTERY STENOSIS MULTI-VESSEL 02/21/2009 TORRES DO, LAKSHMI K 780.2 Fainting (syncope) 02/21/2009 TORRES DO, LAKSHMI K 276.1 HYPONATREMIA 02/21/2009 TORRES DO, LAKSHMI K 414.01 CORONARY ARTERY STENOSIS MULTI-VESSEL 02/21/2009 TORRES DO, LAKSHMI K 780.2 Fainting (syncope) 02/21/2009 TORRES DO, LAKSHMI K 276.1 HYPONATREMIA 02/21/2009 TORRES DO, LAKSHMI K 414.01 CORONARY ARTERY STENOSIS MULTI-VESSEL 02/21/2009 TORRES DO, LAKSHMI K 780.2 Fainting (syncope) 02/21/2009 TORRES DO, LAKSHMI K 276.1 HYPONATREMIA 02/21/2009 TORRES DO, LAKSHMI K 414.01 CORONARY ARTERY STENOSIS MULTI-VESSEL 02/21/2009 TORRES DO, LAKSHMI K 780.2 Fainting (syncope) 02/21/2009 KIMO HAYNES MD 276.1 HYPONATREMIA 02/21/2009 KIMO HAYNES MD 414.0 1 CORONARY ARTERY STENOSIS MULTI-VESSEL 02/21/2009 KIMO HAYNES MD 780.2 Fainting (syncope) 02/21/2009 KIMO HAYNES MD 276.1 HYPONATREMIA 02/21/2009 KIMO HAYNES MD 414.0 1 CORONARY ARTERY STENOSIS MULTI-VESSEL 02/21/2009 KIMO HAYNES MD 780.2 Fainting (syncope) 02/21/2009 KIMO HAYNES MD 276.1 HYPONATREMIA 02/21/2009 KIMO HAYNES MD 414.0 1 CORONARY ARTERY STENOSIS MULTI-VESSEL 02/21/2009 KIMO HAYNES MD 780.2 Fainting (syncope) 02/21/2009 KIMO HAYNES MD 276.1 HYPONATREMIA 02/21/2009 KIMO HAYNES MD 414.0 1 CORONARY ARTERY STENOSIS MULTI-VESSEL 02/21/2009 KIMO HAYNES MD 780.2 Fainting (syncope) 03/19/2010 TORRES DO, LAKSHMI K 455.6 Hemorrhoids 03/19/2010 TORRES DO, LAKSHMI K V72.31 Pelvic Exam (internal) 03/19/2010 TORRES DO, LAKSHMI K V76.10 Visit For: Screening Exam Malignant Neoplasm Breast 03/19/2010 TORRES DO, LAKSHMI K 455.6 Hemorrhoids 03/19/2010 TORRES DO, LAKSHMI K V72.31 Pelvic Exam (internal) 03/19/2010 TORRES DO, LAKSHMI K V76.10 Visit For: Screening Exam Malignant Neoplasm Breast 03/19/2010 TORRES DO, LAKSHMI K 455.6 Hemorrhoids 03/19/2010 TORRES DO, LAKSHMI K V72.31 Pelvic Exam (internal) 03/19/2010 TORRES DO, LAKSHMI K V76.10 Visit For: Screening Exam Malignant Neoplasm Breast 03/19/2010 TORRES DO, LAKSHMI K 455.6 Hemorrhoids 03/19/2010 TORRES DO, LAKSHMI K V72.31 Pelvic Exam (internal) 03/19/2010 TORRES DO, LAKSHMI K V76.10 Visit For: Screening Exam Malignant Neoplasm Breast 03/19/2010 KIMO HAYNES MD 455.6 Hemorrhoids 03/19/2010 KIMO HAYNES MD V72.3 1 Pelvic Exam (internal) 03/19/2010 KIMO HAYNES MD V76.1 0 Visit For: Screening Exam Malignant Neoplasm Breast 03/19/2010 KIMO HAYNES MD 455.6 Hemorrhoids 03/19/2010 KIMO HAYNES MD V72.3 1 Pelvic Exam (internal) 03/19/2010 KIMO HAYNES MD V76.1 0 Visit For: Screening Exam Malignant Neoplasm Breast 03/19/2010 KIMO HAYNES MD 455.6 Hemorrhoids 03/19/2010 KIMO HAYNES MD V72.3 1 Pelvic Exam (internal) 03/19/2010 KIMO HAYNES MD V76.1 0 Visit For: Screening Exam Malignant Neoplasm Breast 03/19/2010 KIMO HAYNES MD 455.6 Hemorrhoids 03/19/2010 KIMO HAYNES MD V72.3 1 Pelvic Exam (internal) 03/19/2010 KIMO HAYNES MD V76.1 0 Visit For: Screening Exam Malignant Neoplasm Breast 12/09/2010 LAKSHMI TORRES DO K 268.9 VITAMIN D DEFICIENCY 12/09/2010 LAKSHMI TORRES DO K 268.9 VITAMIN D DEFICIENCY 12/09/2010 LAKSHMI TORRES DO K 268.9 VITAMIN D DEFICIENCY 12/09/2010 LAKSHMI TORRES DO K 268.9 VITAMIN D DEFICIENCY 12/09/2010 KIMO HAYNES MD 268.9 VITAMIN D DEFICIENCY 12/09/2010 KIMO HAYNES MD 268.9 VITAMIN D DEFICIENCY 12/09/2010 KIMO HAYNES MD 268.9 VITAMIN D DEFICIENCY 12/09/2010 KIMO HAYNES MD 268.9 VITAMIN D DEFICIENCY 10/09/2011 LAKSHMI TORRES DO K 782.7 Spontaneous Ecchymoses 10/09/2011 LAKSHMI TORRES DO K 782.7 Spontaneous Ecchymoses 10/09/2011 LAKSHMI TORRES DO K 782.7 Spontaneous Ecchymoses 10/09/2011 LAKSHMI TORRES DO K 782.7 Spontaneous Ecchymoses 10/09/2011 KIMO HAYNES MD 782.7 Spontaneous Ecchymoses 10/09/2011 KIMO HAYNES MD 782.7 Spontaneous Ecchymoses 10/09/2011 KIMO HAYNES MD 782.7 Spontaneous Ecchymoses 10/09/2011 KIMO HAYNES MD 782.7 Spontaneous Ecchymoses 03/16/2013 LAKSHMI TORRES DO 782.3 EDEMA 03/16/2013 KIMO HAYNES MD 782.3 EDEMA 03/16/2013 KIMO HAYNES MD 782.3 EDEMA 03/16/2013 KIMO HAYNES MD 782.3 EDEMA 03/16/2013 KIMO HAYNES MD 782.3 EDEMA 08/03/2013 KIMO HAYNES MD 807.0 1 CLOSED FRACTURE OF ONE RIB 08/03/2013 KIMO HAYNES MD 807.0 1 CLOSED FRACTURE OF ONE RIB 08/03/2013 KIMO HAYNES MD 807.0 1 CLOSED FRACTURE OF ONE RIB 08/04/2013 [place] RODRIGUEZ, KIMO 338.1 9 PAIN, ACUTE 08/04/2013 [place] RODRIGUEZ, KIMO 338.1 9 PAIN, ACUTE 08/04/2013 KIMO HAYNES MD 338.1 9 PAIN, ACUTE 08/04/2013 KIMO HAYNES MD 338.1 9 PAIN, ACUTE 10/18/2013 KIMO HAYNES MD 733.0 0 OSTEOPOROSIS UNSPECIFIED 10/18/2013 KIMO HAYNES MD 733.0 0 OSTEOPOROSIS UNSPECIFIED 10/18/2013 [place] RODRIGUEZ, KIMO 733.0 0 OSTEOPOROSIS UNSPECIFIED 05/22/2015 [place] RODRIGUEZ, KIMO Shepherd Ot V76.12 05/24/2015 [place] RODRIGUEZ, KIMO Shepherd Ot V76.12 05/25/2015 [place] RODRIGUEZ, KIMO Shepherd Ot V76.12 06/06/2015 [place] RODRIGUEZ, KIMO Shepherd Ot V76.12 06/11/2015 KIMO HAYNES MD Ot V76.12 05/22/2016 Ot 733.00 OST EOPOROSIS NOS 05/22/2016 Ot V76.12 OTH SCREEN MAMMO- MALIGN NEOPLASM OF [place] 05/22/2016 Ot V76.12 OTH SCREEN MAMMO- MALIGN NEOPLASM OF [place] 05/22/2016 LAKSHMI TORRES DO Ot V76.12 OTH SCREEN MAMMO-MALIGN NEOPLASM OF [place] 05/22/2016 KIMO HAYNES MD Ot V76.12 OTH SCREEN MAMMO-MALIGN NEOPLASM OF [place] 05/22/2016 KIMO HAYNES MD Ot V76.12 OTH SCREEN MAMMO-MALIGN NEOPLASM OF [place] 05/22/2016 KIMO HAYNES MD Ot Z12.31 ENCNTR SCREEN MAMMOGRAM FOR MALIGNANT NE 05/22/2016 KIMO HAYNES MD Ot Z12.31 ENCNTR SCREEN MAMMOGRAM FOR MALIGNANT NE 05/23/2016 KIMO HAYNES MD Ot Z12.31 ENCNTR SCREEN MAMMOGRAM FOR MALIGNANT NE 05/27/2016 KIMO HAYNES MD Ot Z12.31 ENCNTR SCREEN MAMMOGRAM FOR MALIGNANT NE 06/03/2016 KIMO HAYNES MD Ot Z12.31 ENCNTR SCREEN MAMMOGRAM FOR MALIGNANT NE 06/11/2016 [place] RODRIGUEZ, KIMO Shepherd Ot Z12.31 ENCNTR SCREEN MAMMOGRAM FOR MALIGNANT NE 06/16/2016 [place] RODRIGUEZ, KIMO Shepherd Ot Z12.31 ENCNTR SCREEN MAMMOGRAM FOR MALIGNANT NE 06/28/2016 Ot 780.2 06/28/2016 Ot 787.03 06/28/2016 Ot 789.00 06/28/2016 Ot V58.69 10/29/2016 Ot 780.2 10/29/2016 Ot 787.03 10/29/2016 Ot 789.00 10/29/2016 Ot V58.69 04/28/2017 Ot 780.2 04/28/2017 Ot 787.03 04/28/2017 Ot 789.00 04/28/2017 Ot V58.69 05/04/2017 [place] RODRIGUEZ, KIMO Shepherd Ot Z12.31 ENCNTR SCREEN MAMMOGRAM FOR MALIGNANT NE 05/27/2017 KIMO HAYNES MD Ot Z12.31 ENCNTR SCREEN MAMMOGRAM FOR MALIGNANT NE 05/29/2017 Ot 780.2 05/29/2017 Ot 787.03 05/29/2017 Ot 789.00 05/29/2017 Ot V58.69 06/26/2017 [place] RODRIGUEZ, KIMO Shepherd Ot Z12.31 ENCNTR SCREEN MAMMOGRAM FOR MALIGNANT NE 07/01/2017 KIMO HAYNES MD Ot Z12.31 ENCNTR SCREEN MAMMOGRAM FOR MALIGNANT NE 06/28/2019 KIMO HAYNES MD Ot V76.12 OTH SCREEN MAMMO-MALIGN NEOPLASM OF [place] 06/28/2019 KIMO HAYNES MD Ot V76.12 OTH SCREEN MAMMO-MALIGN NEOPLASM OF [place] 06/28/2019 KIMO HAYNES MD Ot Z12.31 ENCNTR SCREEN MAMMOGRAM FOR MALIGNANT NE 06/28/2019 KIMO HAYNES MD Ot Z12.31 ENCNTR SCREEN MAMMOGRAM FOR MALIGNANT NE 07/04/2019 MERCEDES BISWAS DO Ot Z01.818 ENCOUNTER FOR OTHER PREPROCEDURAL EXAMIN 07/05/2019 MERCEDES BISWAS DO Ot I10 ESSENTIAL (PRIMARY) HYPERTENSION 07/05/2019 MERCEDES BISWAS DO Ot I25. 10 ATHSCL HEART DISEASE OF [place] CORONARY 07/05/2019 MERCEDES BISWAS DO Ot I48. 91 UNSPECIFIED ATRIAL FIBRILLATION 07/05/2019 MERCEDES BISWAS DO Ot J45.909 UNSPECIFIED ASTHMA, UNCOMPLICATED 07/05/2019 MERCEDES BISWAS DO Ot K57. 30 DVRTCLOS OF LG INT W/O PERFORATION OR AB 07/05/2019 MERCEDES BISWAS DO Ot K62. 1 RECTAL POLYP 07/05/2019 MERCEDES BISWAS DO Ot K92. 1 MELENA 07/05/2019 MERCEDES BISWAS DO Ot Z79. 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 49 FAMILY HX OF ISCHEM HEART DIS AND OTH DI 07/05/2019 MERCEDES BISWAS DO Ot Z86. 73 PRSNL HX OF TIA (TIA), AND CEREB INFRC W 07/05/2019 MERCEDES BISWAS DO Ot Z87.891 PERSONAL HISTORY OF NICOTINE DEPENDENCE 07/05/2019 MERCEDES BISWAS DO Ot Z88. 1 ALLERGY STATUS TO OTHER ANTIBIOTIC AGENT 07/05/2019 MERCEDES BISWAS DO Ot Z88. 8 ALLERGY STATUS TO OTH DRUG/MEDS/BIOL SUB 07/05/2019 MERCEDES BISWAS DO Ot Z95. 5 PRESENCE OF CORONARY ANGIOPLASTY IMPLANT Procedures Code Description [place] [address] CMP 11/10/2012 46358 CBC 11/10/2012 82996 TSH 11/10/2012 45211 LIPI D PANEL 11/11/2012 36055 BMP 03/16/2013 89465 BMP 04/27/2013 Physical P hysical Therapy, [facility] 08/03/2013 81279 XRAY CHEST 1 VIEW 08/08/2013 55174 ROUT INE VENIPUNCTURE 03/23/20148624591 GF R CALC (RESULT ONLY) 03/23/2014 01203 CMP 03/23/2014 89264 MAMM OGRAM, SCREENING 05/01/2014 Results There is no data. Encounters ACCT No. Visit Date/Time Discharge Status Pt. Type Provider Facility Loc./Unit Complaint [id number] 09/29/2014 14:20:00 09/29/2014 23:59: 59 CLS Outpatient KIMO HAYNES MD [id number] 03/23/2014 14:22:00 03/23/2014 23:59: 59 CLS Outpatient KIMO HAYNES MD [id number] 08/04/2013 13:43:00 08/04/2013 23:59: 59 CLS Outpatient KIMO HAYNES MD [id number] 08/04/2013 10:41:00 08/04/2013 23:59: 59 CLS Outpatient KIMO HAYNES MD [id number] 03/16/2013 10:19:00 03/16/2013 23:59: 59 CLS Outpatient LAKSHMI TORRES DO [id number] 11/08/2012 11:00:00 11/08/2012 23:59: 59 [place] [id number] 04/05/2012 14:10:00 04/05/2012 23:59:5 9 CLS Outpatient LAKSHMI TORRES DO [id number] 04/05/2012 14:10:00 04/05/2012 23:59: 59 [place] [id number] 07/21/2017 10:00:00 07/21/2017 23:59:5 9 CLS Outpatient KIMO HAYNES MD [facility] [id number] 07/05/2019 09:09:00 019 12:20:00 DIS Outpatient MERCEDES BISWAS DO Via [facility] ENDO CHANGE IN BOWEL HABITS [id number] 06/28/2019 05:31:00 019 23:59:59 CLS Outpatient MERCEDES BISWAS DO [facility] PREOP COLONOSCOPY [id number] 06/05/2017 09:08:00 017 23:59:59 CLS Outpatient KIMO HAYNES MD [facility] RAD Z12.31 [id number] 05/21/2016 09:01:00 016 23:59:59 CLS Outpatient KIMO HAYNES MD [facility] RAD SCREENING FOR BREAST CA [id number] 05/14/2015 08:54:00 015 23:59:59 CLS Outpatient KIMO HAYNES MD [facility] RAD SCREENING [id number] 05/01/2014 10:35:00 014 23:59:59 CLS Outpatient KIMO HAYNES MD [facility] RAD SCREENING [id number] 04/21/2013 09:09:00 013 23:59:59 CLS Outpatient LAKSHMI TORRES DO [facility] RAD SCREENING [id number] 04/19/2012 09:34:00 Document Registration [id number] 04/22/2011 09:45:00 Document Registration [id number] 02/13/2009 18:23:00 Document Registration
--- NOTE | 2019-12-22 21:00 | NUR ---
4 TRISHA TO HEAD LAC BY Deshawn MARTE APRN.
--- NOTE | 2019-12-22 21:08 | NUR ---
REPORT TO [facility] STAFF NURSE AND FACILITY TO ARRANGE TRANSPORT BACK TO [facility].
[2019-12-22 21:21] VITALS: BP 129/74
[2019-12-26] MEDS ORDERED: ROPI1TAB PO (09:41)
[2019-12-26] MEDS ORDERED: ACET325T49 PO (09:41)
[2019-12-26] MEDS ORDERED: ALB0.5V INH (09:41)
[2019-12-26] MEDS ORDERED: LOSA100T57 PO (09:41)
[2019-12-26] MEDS ORDERED: CLOP75TA28 PO (09:41)
[2019-12-26] MEDS ORDERED: FURO40TA4 PO (09:41)
[2019-12-26] MEDS ORDERED: METO100T12 PO (09:41)
[2019-12-26] MEDS ORDERED: POTA10TA36 PO (09:41)
[2019-12-26] MEDS ORDERED: GBPN600T PO (09:41)
[2019-12-26] MEDS ORDERED: MIRA50TA PO (09:42)
[2019-12-27] MEDS ORDERED: CEFD300C3 PO (14:38)
[2019-12-27] MEDS ORDERED: METO50TA15 PO (14:38)
[2019-12-27] MEDS ORDERED: ATOR20TA66 PO (14:38)
[2019-12-27] MEDS ORDERED: ASPI-983 PO (14:38)
== END 2019-12-22 21:21 | disposition home or self-care (01) ==
LOC: EDUNIT# 19:44 → ER 19:46
DX: S01.01XA Laceration without foreign body of scalp, initial encounter (principal); Z88.8 Allergy status to other drugs, medicaments and biological substances; W19.XXXA Unspecified fall, initial encounter; Y92.129 Unspecified place in nursing home as the place of occurrence of the external cause
CPT/HCPCS: 70450; 72125; 90471; 90715